=== PATIENT | male | born 1970 | race Caucasian/White ===

== ENCOUNTER 2017-09-09 11:21 | Inpatient (IN) | payer OTHER ==
[~2017-09-09] VITALS: Ht 185.4 cm; Wt 117.1 kg
--- NOTE | 2017-09-09 11:45 | ED GENERAL ADULT ---
History of Present Illness General Chief Complaint: General Adult Stated Complaint: FALL X 1 WEEK ABD PAIN AND SWELLING Source: patient Exam Limitations: no limitations Vital Signs & Intake/Output Vital Signs & Intake/Output Vital Signs Date Time Temp Pulse Resp B/P B/P Pulse O2 O2 Flow FiO2 Mean Ox Delivery Rate 09/09 1417 97.7 109 20 150/110 98 Room Air Room Air 09/09 1259 120 168/110 95 09/09 1220 120 180/112 09/09 1206 122 22 162/112 09/09 1152 Nasal 2.0L Cannula 09/09 1148 98.3 190 18 179/120 09/09 1145 190 22 140/110 09/09 1144 98.6 147 23 135/85 100 Room Air Allergies Coded Allergies: diazepam (UNKNOWN 09/09/17) Reconcile Medications No Known Home Medications Triage Note: pt marquita triage after falling off 6' ladder onto bench hitting his abd 1 week ago. pt states since then his abd has been distended, firm with scrotal swelling also. pt states his legs also have been swelling. pt eyes are icterus. pt jugular is distended. pt has a hx of untreated htn and heavy drinking of etoh. pt states he feels like his abd and chest are filling with fluid. Triage Nurses Notes Reviewed? yes Onset: Abrupt Duration: week(s): (2), constant, continues in ED Timing: recent history Injury Environment: home Severity: mild, moderate Severity Numbers: 6 No Modifying Factors: none HPI: 47-year-old male history of alcohol dependence, cirrhosis resents for evaluation of shortness of breath abdominal scrotal and lower extremity swelling and a fall. Patient reports 2 weeks ago he fell about 1 foot off of a ladder landed on his abdomen and his chest. There was no head strike or loss of consciousness. He reports that about 1 week later he noted that his abdomen was starting to swell and become painful. He also reports he feels like his heart is racing but this is not new it's been going on "forever". He denies any chest pain headache changes in vision vomiting. He has not drank for 1 month he denies any history of withdrawal seizures. He denies any easy bruising or bleeding. He reports shortness of breath he feels like his diaphragm is being pushed up. Is worse when he lays back it is worse when he exerts himself. No recent surgery. (Lazarus Fuentes) Past History Medical History Any Pertinent Medical History? see below for history Influenza Vaccine: 11/27/11 Surgical History Surgical History: non-contributory Psychosocial History Who do you live with Spouse What is your primary language Indian Family History Hx Contributory? No (Lazarus Fuentes) Review of Systems Review of Systems Constitutional: Reports: no symptoms. EENTM: Reports: no symptoms. Respiratory: Reports: see HPI, short of breath. Cardiovascular: Reports: no symptoms. GI: Reports: see HPI, abdominal pain. Genitourinary: Reports: no symptoms. Musculoskeletal: Reports: no symptoms. Skin: Reports: no symptoms. Neurological/Psychological: Reports: no symptoms. Hematologic/Endocrine: Reports: no symptoms. Immunologic/Allergic: Reports: no symptoms. All Other Systems: Reviewed and Negative (Lazarus Fuentes) Physical Exam Physical Exam General Appearance: well developed/nourished, no apparent distress, alert, awake , obese Head: atraumatic, normal appearance Eyes: Bilateral: PERRL, EOMI, other (SCLERAL ICTERUS). Ears, Nose, Throat: hearing grossly normal Neck: normal inspection, supple, full range of motion, JVD Respiratory: normal breath sounds, chest non-tender, no respiratory distress, quiet respiration, decreased breath sounds Cardiovascular: regular rate/rhythm, edema, normal peripheral pulses, tachycardia, irregularly irregular Peripheral Pulses: 2+ radial (R), 2+ radial (L) Gastrointestinal: normal bowel sounds, no organomegaly, distention, UPPER ABDOMINAL TENDERNESS AND ABDOMINAL DISTENTION. nO REBOUND OR GUARDING NO TENSE SKIN Back: normal inspection, normal range of motion, no vertebral tenderness Extremities: normal capillary refill, normal range of motion, pedal edema, swelling Neurologic/Psych: no motor/sensory deficits, awake, alert, oriented x 3, normal gait, normal mood/affect Skin: intact, normal color, warm/dry Comments: There is scrotal and penile swelling without erythema Core Measures ACS in differential dx? No CVA/TIA Diagnosis: No Sepsis Present: No Sepsis Focused Exam Completed? No (Lazarus Fuentes) Progress Differential Diagnoses I considered the following diagnoses in my evaluation of the patient: [Rapid A. fib, CHF, cirrhosis, acute coronary syndrome, trauma, intra-abdominal bleeding, ascites, malignancy] Plan of Care: Orders Procedure Date/time Status Heart Healthy Diet 09/09 D Active Patient Data 09/09 1444 Active ED Holding Orders 09/09 1441 Active Admit to inpatient 09/09 1441 Active Vital Signs 09/09 1441 Active Code Status 09/09 1441 Active Add-on Test (ER Only) 09/09 1236 Active Intake & Output 09/09 1149 Active URINE DRUG SCREEN FOR ER ONLY 09/09 1139 Complete DIRECT BILIRUBIN 09/09 1135 Complete B-TYPE NATRIURETIC PEP (BNP) 09/09 1135 Complete TYPE & SCREEN (NOT X-MATCH) 09/09 1135 Complete Add-on Test (ER Only) 09/09 1132 Active Add-on Test (ER Only) 09/09 1131 Active EKG 09/09 1131 Active URINALYSIS 09/09 1125 Complete TROPONIN LEVEL 09/09 1125 Complete PARTIAL THROMBOPLASTIN TIME 09/09 1125 Complete PROTHROMBIN TIME 09/09 1125 Complete MAGNESIUM 09/09 1125 Complete ETHANOL 09/09 1125 Complete COMPREHENSIVE METABOLIC PANEL 09/09 1125 Complete CBC WITHOUT DIFFERENTIAL 09/09 1125 Complete Current Medications Sig/Tomi Start time Last Medication Dose Stop Time Status Admin Heparin Sodium 25,000 UNIT Q24H 09/09 1430 AC (Porcine) 09/10 1429 (Heparin) Sodium Chloride 500 ML Diltiazem HCl 125 MG Q16H 09/09 1300 AC 09/09 (Cardizem DRIP) 1339 Sodium Chloride 100 ML (Normal Saline 0.9%) Laboratory Tests 09/09/17 1135: Serum Alcohol < 10.0 09/09/17 1135: Anion Gap 10, Estimated GFR > 60, BUN/Creatinine Ratio 16.7, Glucose 107 H, Calcium 9.4, Magnesium 1.7, Total Bilirubin 2.2 H, Direct Bilirubin 0.7 H, AST 56, ALT 48, Alkaline Phosphatase 94, Troponin I 0.07, Ygf-Z-Fxvjdbngsau Pept 1780 H, Total Protein 8.1, Albumin 4.1, Globulin 4.0, Albumin/Globulin Ratio 1.0 L, PT 17.6 H, INR 1.61 H, APTT 29, CBC w Diff NO MAN DIFF REQ, RBC 4.75, MCV 95.7 H, MCH 32.4 H, MCHC 33.9, RDW 14.3, MPV 9.0, Gran % 71.3, Lymphocytes % 19.0 L, Monocytes % 8.6, Eosinophils % 0.9, Basophils % 0.2, Absolute Granulocytes 7.1 H, Absolute Lymphocytes 1.9, Absolute Monocytes 0.9 H, Absolute Eosinophils 0.1, Absolute Basophils 0, Urine Opiates Screen < 100, Methadone Screen < 40, Barbiturate Screen < 60, Ur Phencyclidine Scrn < 6.00, Amphetamines Screen < 100, U Benzodiazepines Scrn < 85, Urine Cocaine Screen < 50, Urine Cannabis Screen < 5.00, Urine Color YEL, Urine Clarity CLEAR, Urine pH 6.0, Ur Specific [place] 1.015, Urine Protein 30 H, Urine Ketones NEG, Urine Nitrite NEG, Urine Bilirubin NEG, Urine Urobilinogen 0.2, Ur Leukocyte Esterase NEG, Ur Microscopic SEDIMENT EXAMINED, Urine WBC 3-5 H, Ur Epithelial Cells FEW , Hyaline Casts 1-3 H, Urine Hemoglobin NEG, Urine Glucose NEG Patient is here for evaluation of multiple complaints including a fall 2 weeks ago shortness of breath and abdominal pain. He denies any head strike headaches changes in vision or vomiting. EKG reveals rapid A. fib rates 170s. CT scan of the head and cervical spine CT of the chest CT of the abdomen and pelvis contrast ordered. Patient was given Cardizem first 10 and 15 and started drip at 7.5 with mild improvement TO the [address] scans real evidence of cirrhosis without evidence of trauma. Patient will also be heparinized. His BNP is elevated. He was given 40 of IV Lasix and a gram of Nitropaste. Patient will be admitted to telemetry for further evaluation and treatment. Dr. Martinez admitted the patient and Dr. Martinez spoke to Dr. Ge. Diagnostic Imaging: Viewed by Me: CT Scan. Discussed w/RAD: CT Scan. Radiology Impression: PATIENT: SHILOH WHALEN PRESENT AGE: 47 PATIENT ACCOUNT NO: [id number] : 68 LOCATION: [facility] ORDERING PHYSICIAN: Lazarus DORAN SERVICE DATE: 09/09/17 EXAM TYPE: CAT - CT CERV SPINE WO IV CONTRAST; CT HEAD WO IV CONTRAST EXAMINATION: CT HEAD WITHOUT CONTRAST CT OF THE CERVICAL SPINE WITHOUT CONTRAST CLINICAL INFORMATION: 47-year -old male with history of fall 2 weeks ago, unknown head strike. COMPARISON: None. TECHNIQUE: Noncontrast CT scan of the head and cervical spine, using standard protocol. Multiplanar reconstructed images are obtained. Multiplanar reconstructed images are also obtained. FINDINGS: CT OF THE HEAD: Technically limited study due to motion related artifacts. Grossly, there is no evidence of any intracranial hemorrhage or acute infarction, intracranial mass or mass effect or extra-axial fluid collection present. 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 Both orbital globes, extraocular muscles, optic nerves appear bilaterally symmetric and are unremarkable. The bilateral mastoid air cells appear unremarkable. CT OF THE CERVICAL SPINE: Technically limited study due to motion related artifacts. Nonspecific straightening of the cervical spine is noted. Facet degenerative arthritic changes are noted at C3-C4 on the right. Facet degenerative arthritic changes are also noted to the left at C2-C3. Specifically, no evidence of any cervical spine fracture or subluxation present. No prespinal soft tissue hematoma seen. Both lung apices are grossly clear. IMPRESSION: 1. Technically limited study. Repeat evaluation when patient is able to hold still for better quality of images may be considered if clinically appropriate. 2. No gross CT evidence of acute intracranial hemorrhage or cervical spine fracture present. DICTATED BY: Rah Ratliff MD DATE/TIME DICTATED:09/09/171307 PRECISION LENS GENERATOR:DANIEL DATE/TIME TRANSCRIBED:1307 CONFIDENTIAL, DO NOT COPY WITHOUT APPROPRIATE AUTHORIZATION. < Electronically signed in Other Vendor System> , PATIENT: SHILOH WHALEN PRESENT AGE: 47 PATIENT ACCOUNT NO: [id number] : LOCATION: [facility] ORDERING PHYSICIAN: Lazarus DORAN SERVICE DATE: EXAM TYPE: CAT - CT ABD & PELVIS W IV CONTRAST; CTA CHEST-PULMONARY EMBOLISM EXAMINATION: CT ANGIOGRAM CHEST WITHOUT AND WITH CONTRAST (CT PULMONARY ANGIOGRAM FOR PE) CT ABDOMEN AND PELVIS WITH CONTRAST CLINICAL INFORMATION: Fell off ladder onto right abdomen with pain, swelling and right upper quadrant pain. Shortness of breath, rapid atrial fibrillation. COMPARISON: Renal Doppler ultrasound 12/15/2011. TECHNIQUE: Prior to contrast administration, noncontrast localization images were obtained. Subsequently, multidetector volumetric imaging was performed from the thoracic inlet to below the diaphragms following the administration of 95 mL Optiray 320 intravenous contrast. No contrast reaction reported Sagittal, coronal, and MIP oblique sagittal reformatted images were obtained on the CT workstation, uploaded to PACS, and reviewed. TOTAL DLP: 2450.77 mGy-cm FINDINGS: CHEST: QUALITY OF STUDY/CONTRAST BOLUS: Satisfactory. PULMONARY ARTERIES: No central or segmental pulmonary emboli. THORACIC AORTA: No aneurysm or dissection. LUNG: Linear consolidations at the bases consistent with subsegmental atelectasis. The lungs are otherwise clear. Right hemidiaphragm elevation results in compressive atelectasis at the right lung base and low right lung volume. PLEURA: No pleural effusion or pneumothorax. MEDIASTINUM: Cardiomegaly. No pericardial effusion. Multiple scattered subcentimeter lymph nodes within the mediastinum. No adenopathy within the mediastinum or hilar regions by CT criteria. Prominent fluid within the perivascular spaces. Trachea is midline and central airways are patent. Limited views of the thyroid gland are unremarkable. No evidence of septal bowing or right heart strain. CHEST WALL /AXILLA: No axillary or internal mammary lymphadenopathy. OSSEOUS STRUCTURES: No acute or suspicious osseous abnormality. ABDOMEN AND PELVIS: LIVER, GALLBLADDER, AND BILIARY TREE: There is relative hypertrophy of the left hepatic lobe. No focal liver lesions or intrahepatic biliary dilatation. The gallbladder is unremarkable with no evidence of radiopaque gallstones, gallbladder wall thickening, or obvious pericholecystic inflammatory changes. There is small ascites seen collecting mostly around the liver and spleen but also drains dependently into the pelvis. PANCREAS: Unremarkable. SPLEEN: Unremarkable. ADRENAL GLANDS: Unremarkable. KIDNEYS AND URETERS: The kidneys are normal in size, shape, and attenuation. No hydronephrosis, hydroureter, or calculi seen. No perinephric stranding. BLADDER: Unremarkable. GASTROINTESTINAL TRACT: The appendix is not seen; however, there are no inflammatory changes in the right lower quadrant to suggest acute appendicitis. No evidence of bowel obstruction. The small and large bowel are overall unremarkable in appearance although mostly decompressed which limits evaluation. No evidence of bowel obstruction. ABDOMINAL WALL: No significant hernia is appreciated. LYMPH NODES: Abnormally enlarged lymph nodes are seen in the upper abdomen and retroperitoneum, for example there is a portacaval lymph node measuring 1.3 x 1.8 cm. Retroperitoneal adenopathy with the left para-aortic lymph node measuring 1.5 x 1.9 cm. The lymph nodes are scattered without bulkiness. VASCULAR: No abdominal aortic aneurysm. PELVIC VISCERA: Unremarkable. OSSEOUS STRUCTURES: Unremarkable. IMPRESSION: 1. No evidence of central or segmental pulmonary emboli. 2. Cardiomegaly. 3. Moderate right hemidiaphragm elevation. There is bibasilar atelectasis, greater on the right likely due to compression. No consolidations are seen that raise suspicion for pneumonia. 4. Relative hypertrophy of the left hepatic lobe. Small abdominal ascites mostly centered around the liver and spleen. The constellation of these findings is suggestive of underlying liver cirrhosis. Clinical correlation requested. 5. Lymphadenopathy within the abdomen , etiology unknown. VTE: Negative DICTATED BY: Shreya Valdes MD DATE/TIME DICTATED:09/09/171310 PRECISION LENS GENERATOR:DANIEL DATE/TIME TRANSCRIBED:1310 CONFIDENTIAL, DO NOT COPY WITHOUT APPROPRIATE AUTHORIZATION. < Electronically signed in Other Vendor System> SIGNED BY: Shreya Valdes MD 1345 CXR Impression: PATIENT: SHILOH WHALEN PRESENT AGE: 47 PATIENT ACCOUNT NO: [id number] : 66 LOCATION: [facility] ORDERING PHYSICIAN: Lazarus DORAN SERVICE DATE: 09/09/17 EXAM TYPE: RAD - XRY-PORTABLE CHEST XRAY EXAMINATION: XR PORTABLE CHEST CLINICAL INFORMATION: Shortness of breath. Abdominal swelling. COMPARISON: None TECHNIQUE: Portable frontal view of the chest was obtained. FINDINGS: The cardiac silhouette appears enlarged. The left hemithorax appears well aerated. A small to moderate-sized right-sided pleural effusion is suspected. No gross lobar consolidation. IMPRESSION: Suspected small to moderate right-sided pleural effusion. DICTATED BY: Adama Gonsalez MD DATE/TIME DICTATED:09/09/171211 PRECISION LENS GENERATOR:DANIEL DATE/TIME TRANSCRIBED:09/09/171211 CONFIDENTIAL, DO NOT COPY WITHOUT APPROPRIATE AUTHORIZATION. <Electronically signed in Other Vendor System> SIGNED BY: Adama Gonsalez MD 09/09/171217 Initial ED EKG: AFIB (WITH RVR RATE 150S-160S) (Lazarus Fuentes) Departure Departure Disposition: STILL A PATIENT Condition: Stable Clinical Impression Primary Impression: New onset a-fib Referrals: Patient Has No Primary Care Dr (PCP/Family) Departure Forms: Customer Survey General Discharge Information Prescriptions: Current Visit Scripts No Known Home Medications Admission Note Spoke With: Juliet GONZALEZ,Nicolas Documentation of Exam: Documentation of any treatments & extenuating circumstances including Concerns Regarding Discharge (functional status, medication knowledge or non-compliance, living conditions, etc.) that warrant an admission rather than observation: [ Cardizem drip, serial labs, serial EKGs, echocardiogram, IV heparin, IV diuresis , gastroenterology consult, ultrasound liver] (Lazarus Fuentes) Admission Note Documentation of Exam: Documentation of any treatments & extenuating circumstances including Concerns Regarding Discharge (functional status, medication knowledge or non-compliance, living conditions, etc.) that warrant an admission rather than observation: PA/SUPERINTENDENT CONSTRUCTION Co-Sign Statement Statement: ED Attending supervision documentation- [X] I saw and evaluated the patient. I have also reviewed all the pertinent lab results and diagnostic results. I agree with the findings and the plan of care as documented in the PA's/SUPERINTENDENT CONSTRUCTION's documentation. [] I have reviewed the ED Record and agree with the PA's/SUPERINTENDENT CONSTRUCTION's documentation. [] Additions or exceptions (if any) to the PAs/SUPERINTENDENT CONSTRUCTION's note and plan are summarized below: [] I have seen and personally examined the patient and I agree with the PAs evaluation. He is a 47-year-old male who came in with abdominal distention, leg swelling and difficulty breathing. He had a recent fall. CT scan of the abdomen and pelvis was negative for acute injury. He was found to be in rapid A. fib with aberrant ventricular rate of 160. He was given IV Cardizem for rate control. He was found to be in congestive heart failure. I discussed the case with Dr. Ge. The patient is being admitted to telemetry for further care (Roger Martinez DO) Critical Care Note Critical Care Note Critical Care Time: 75-104 min (Lazarus Fuentes)
[2017-09-09 11:50] LABS: ABSOLUTE BASOPHIL COUNT 0 /CUMM (0.0-0.2); ABSOLUTE EOSINOPHIL COUNT 0.1 /CUMM (0.0-0.7); ABSOLUTE GRANULOCYTE CT 7.1 /CUMM (1.4-6.5); ABSOLUTE LYMPH COUNT 1.9 /CUMM (1.2-3.4); ABSOLUTE MONOCYTE COUNT 0.9 /CUMM (0.10-0.60); BASOPHIL % 0.2 % (0.0-2.0); EOSINOPHIL % 0.9 % (0-5); GRANULOCYTE % 71.3 % (42.2-75.2); HEMATOCRIT 45.4 % (42-52); MEAN CORPUSCULAR HGB 32.4 PG (27.0-31.0); MEAN CORPUSCULAR HGB CONC 33.9 G/DL (33.0-37.0); MEAN CORPUSCULAR VOLUME 95.7 FL (80.0-94.0); PLATELET COUNT 273 /CUMM (130-400); RBC DISTRIBUTION WIDTH 14.3 % (11.5-14.5); RED BLOOD CELL CT 4.75 /CUMM (4.70-6.10)
[2017-09-09 12:01] LABS: PT 17.6 SEC (9.4-12.5); PTT 29 SEC (25-37)
--- NOTE | 2017-09-09 12:18 | RADIOLOGY REPORT ---
EXAMINATION: XR PORTABLE CHEST CLINICAL INFORMATION: Shortness of breath. Abdominal swelling. COMPARISON: None TECHNIQUE: Portable frontal view of the chest was obtained. FINDINGS: The cardiac silhouette appears enlarged. The left hemithorax appears well aerated. A small to moderate-sized right-sided pleural effusion is suspected. No gross lobar consolidation. IMPRESSION: Suspected small to moderate right-sided pleural effusion.
--- NOTE | 2017-09-09 13:45 | CT SCAN REPORT ---
EXAMINATION: CT ANGIOGRAM CHEST WITHOUT AND WITH CONTRAST (CT PULMONARY ANGIOGRAM FOR PE) CT ABDOMEN AND PELVIS WITH CONTRAST CLINICAL INFORMATION: Fell off ladder onto right abdomen with pain, swelling and right upper quadrant pain. Shortness of breath, rapid atrial fibrillation. COMPARISON: Renal Doppler ultrasound 12/15/2011. TECHNIQUE: Prior to contrast administration, noncontrast localization images were obtained. Subsequently, multidetector volumetric imaging was performed from the thoracic inlet to below the diaphragms following the administration of 95 mL Optiray 320 intravenous contrast. No contrast reaction reported Sagittal, coronal, and MIP oblique sagittal reformatted images were obtained on the CT workstation, uploaded to PACS, and reviewed. TOTAL DLP: 2450.77 mGy-cm FINDINGS: CHEST: QUALITY OF STUDY/CONTRAST BOLUS: Satisfactory. PULMONARY ARTERIES: No central or segmental pulmonary emboli. THORACIC AORTA: No aneurysm or dissection. LUNG: Linear consolidations at the bases consistent with subsegmental atelectasis. The lungs are otherwise clear. Right hemidiaphragm elevation results in compressive atelectasis at the right lung base and low right lung volume. PLEURA: No pleural effusion or pneumothorax. MEDIASTINUM: Cardiomegaly. No pericardial effusion. Multiple scattered subcentimeter lymph nodes within the mediastinum. No adenopathy within the mediastinum or hilar regions by CT criteria. Prominent fluid within the perivascular spaces. Trachea is midline and central airways are patent. Limited views of the thyroid gland are unremarkable. No evidence of septal bowing or right heart strain. CHEST WALL/AXILLA: No axillary or internal mammary lymphadenopathy. OSSEOUS STRUCTURES: No acute or suspicious osseous abnormality. ABDOMEN AND PELVIS: LIVER, GALLBLADDER, AND BILIARY TREE: There is relative hypertrophy of the left hepatic lobe. No focal liver lesions or intrahepatic biliary dilatation. The gallbladder is unremarkable with no evidence of radiopaque gallstones, gallbladder wall thickening, or obvious pericholecystic inflammatory changes. There is small ascites seen collecting mostly around the liver and spleen but also drains dependently into the pelvis. PANCREAS: Unremarkable. SPLEEN: Unremarkable. ADRENAL GLANDS: Unremarkable. KIDNEYS AND URETERS: The kidneys are normal in size, shape, and attenuation. No hydronephrosis, hydroureter, or calculi seen. No perinephric stranding. BLADDER: Unremarkable. GASTROINTESTINAL TRACT: The appendix is not seen; however, there are no inflammatory changes in the right lower quadrant to suggest acute appendicitis. No evidence of bowel obstruction. The small and large bowel are overall unremarkable in appearance although mostly decompressed which limits evaluation. No evidence of bowel obstruction. ABDOMINAL WALL: No significant hernia is appreciated. LYMPH NODES: Abnormally enlarged lymph nodes are seen in the upper abdomen and retroperitoneum, for example there is a portacaval lymph node measuring 1.3 x 1.8 cm. Retroperitoneal adenopathy with the left para-aortic lymph node measuring 1.5 x 1.9 cm. The lymph nodes are scattered without bulkiness. VASCULAR: No abdominal aortic aneurysm. PELVIC VISCERA: Unremarkable. OSSEOUS STRUCTURES: Unremarkable. IMPRESSION: 1. No evidence of central or segmental pulmonary emboli. 2. Cardiomegaly. 3. Moderate right hemidiaphragm elevation. There is bibasilar atelectasis, greater on the right likely due to compression. No consolidations are seen that raise suspicion for pneumonia. 4. Relative hypertrophy of the left hepatic lobe. Small abdominal ascites mostly centered around the liver and spleen. The constellation of these findings is suggestive of underlying liver cirrhosis. Clinical correlation requested. 5. Lymphadenopathy within the abdomen, etiology unknown. VTE: Negative
--- NOTE | 2017-09-09 13:46 | CT SCAN REPORT ---
EXAMINATION: CT HEAD WITHOUT CONTRAST CT OF THE CERVICAL SPINE WITHOUT CONTRAST CLINICAL INFORMATION: 47-year-old male with history of fall 2 weeks ago, unknown head strike. COMPARISON: None. TECHNIQUE: Noncontrast CT scan of the head and cervical spine, using standard protocol. Multiplanar reconstructed images are obtained. Multiplanar reconstructed images are also obtained. FINDINGS: CT OF THE HEAD: Technically limited study due to motion related artifacts. Grossly, there is no evidence of any intracranial hemorrhage or acute infarction, intracranial mass or mass effect or extra-axial fluid collection present. 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 Both orbital globes, extraocular muscles, optic nerves appear bilaterally symmetric and are unremarkable. The bilateral mastoid air cells appear unremarkable. CT OF THE CERVICAL SPINE: Technically limited study due to motion related artifacts. Nonspecific straightening of the cervical spine is noted. Facet degenerative arthritic changes are noted at C3-C4 on the right. Facet degenerative arthritic changes are also noted to the left at C2-C3. Specifically, no evidence of any cervical spine fracture or subluxation present. No prespinal soft tissue hematoma seen. Both lung apices are grossly clear. IMPRESSION: 1. Technically limited study. Repeat evaluation when patient is able to hold still for better quality of images may be considered if clinically appropriate. 2. No gross CT evidence of acute intracranial hemorrhage or cervical spine fracture present.
--- NOTE | 2017-09-09 14:47 | History & Physical ---
Ashish Mcginnis 09/09/17 1447: General Information and HPI MD Statement: I have seen and personally examined SHILOH MCRAE and documented this H&P. The patient is a 47 year old M who presented with a patient stated chief complaint of [abdominal swelling]. Source of Information: patient Exam Limitations: no limitations History of Present Illness: Mr. Mcrae is a 47-year-old male past medical history of hypertension, former heavy alcohol abuse and poor medical follow-up presenting to the emergency department with abdominal and scrotal swelling of 5 days duration with dyspnea, and progressive lower extremity swelling for 2 weeks, found to be in atrial fibrillation with RVR. The patient first noticed something was wrong on Tuesday night when he had difficulty sleeping, with pain and problems breathing in bed. When he awoke, he realized his abdomen was grossly distended as was his scrotum. For approximately a week prior to this, he had noticed his feet and ankles were becoming more and more swollen. The patient has some pain and tenderness at the midline of the lower abdomen, and he reports that he "felt fluid coming in" to his abdomen when all this started. Patient denies chest pain, but reports that he does have shortness of breath, finding it difficult to take full inspiration with his swollen abdomen. He also reports becoming dizzy/lightheaded when he tries to recline fully. Patient denies vomiting, but does report a history of nausea over this timeframe. Patient is a former alcoholic, drinking heavily for approximately 20 years with one hospitalization for alcohol withdrawal (no seizures or intubation), before cutting back 2.5 years ago, and only drinking wine rarely at present. Patient has never smoked cigarettes, denies illicit drug use. Is sexually active, but not in the past 2 years and no new partners recently. Patient has never used IV drugs. It has been over 10 years since the patient has seen a doctor, and he reports a history of very elevated blood pressure. He says that he has not been able to tolerate the side-effects of bp meds in the past. Otherwise, he takes no medicines regularly, either prescription or OTC. Allergies/Medications Allergies: Coded Allergies: diazepam (UNKNOWN 09/09/17) Home Med list No Known Home Medications Compliance With Home Meds: POOR Past History Travel History Traveled to [place] past 21 day No Medical History Cardiovascular: hypertension Surgical History Surgical History: appendectomy Past Family/Social History Psychosocial History Where do you live? Home Who Do You Live With? self Primary Language: Burundian Smoking Status: Never Smoked ETOH Use: Former heavy EtOH use Illicit Drug Use: denies illicit drug use Review of Systems Review of Systems Constitutional: Denies: fever. Exam & Diagnostic Data Last 24 Hrs of Vital Signs/I&O Vital Signs Date Time Temp Pulse Resp B/P B/P Pulse O2 O2 Flow FiO2 Mean Ox Delivery Rate 09/09 1730 98.2 116 17 172/90 97 09/09 1645 123 20 138/106 96 Nasal 4.0L Cannula 09/09 1417 97.7 109 20 150/110 98 Room Air Room Air 09/09 1259 120 168/110 95 09/09 1220 120 180/112 09/09 1206 122 22 162/112 09/09 1152 Nasal 2.0L Cannula 09/09 1148 98.3 190 18 179/120 09/09 1145 190 22 140/110 09/09 1144 98.6 147 23 135/85 100 Room Air Intake & Output 09/09 1600 09/09 0800 09/09 0000 Intake Total 0 Output Total 1300 Balance -1300 Intake, Oral 0 Output, Urine 1300 Patient 133.98 kg Weight Physical Exam General Appearance Alert, Oriented X3, Cooperative, No Acute Distress HEENT Atraumatic, PERRLA, EOMI, Mucous Membr. moist/pink Neck Supple, No JVD, No thryomegaly Cardiovascular Normal S1, Normal S2, No Murmurs, Irregular rhythm Lungs Clear to Auscultation, Normal Air Movement Abdomen Normal Bowel Sounds, Distended abdomen, not fully firm, with midline tenderness in the lower quadrant Neurological Normal Gait, Normal Speech, Strength at 5/5 X4 Ext Extremities BLE are edematous, erythematous Reproductive (MALE) Swollen scrotum with palpable testes Last 24 Hrs of Labs/Naldo: Laboratory Tests 09/09/17 1632: Troponin I 0.07 09/09/17 1135: Serum Alcohol < 10.0 09/09/17 1135: Anion Gap 10, Estimated GFR > 60, BUN/Creatinine Ratio 16.7, Glucose 107 H, Calcium 9.4, Magnesium 1.7, Total Bilirubin 2.2 H, Direct Bilirubin 0.7 H, AST 56, ALT 48, Alkaline Phosphatase 94, Troponin I 0.07, Smg-S-Lyltrjkiugy Pept 1780 H, Total Protein 8.1, Albumin 4.1, Globulin 4.0, Albumin/Globulin Ratio 1.0 L, TSH 3.190, Free T4 1.48, PT 17.6 H, INR 1.61 H, APTT 29, CBC w Diff NO MAN DIFF REQ, RBC 4.75, MCV 95.7 H, MCH 32.4 H, MCHC 33.9, RDW 14.3, MPV 9.0, Gran % 71.3, Lymphocytes % 19.0 L, Monocytes % 8.6, Eosinophils % 0.9, Basophils % 0.2, Absolute Granulocytes 7.1 H, Absolute Lymphocytes 1.9, Absolute Monocytes 0.9 H, Absolute Eosinophils 0.1, Absolute Basophils 0, Urine Opiates Screen < 100, Methadone Screen < 40, Barbiturate Screen < 60, Ur Phencyclidine Scrn < 6.00, Amphetamines Screen < 100, U Benzodiazepines Scrn < 85, Urine Cocaine Screen < 50, Urine Cannabis Screen < 5.00, Urine Color YEL, Urine Clarity CLEAR, Urine pH 6.0, Ur Specific [place] 1.015, Urine Protein 30 H, Urine Ketones NEG, Urine Nitrite NEG, Urine Bilirubin NEG, Urine Urobilinogen 0.2, Ur Leukocyte Esterase NEG, Ur Microscopic SEDIMENT EXAMINED, Urine WBC 3-5 H, Ur Epithelial Cells FEW, Hyaline Casts 1-3 H, Urine Hemoglobin NEG, Urine Glucose NEG Microbiology 09/09 173 BLOOD: Blood Culture - ORD 09/09 1730 BLOOD: Blood Culture - ORD 09/09 1710 URINE ROUT: Urine Culture - ORD Assessment/Plan Assessment: 47-year-old male with history of hypertension, former heavy alcohol abuse and poor medical follow-up presented to the emergency department due to 5 days of abdominal and scrotal swelling with dyspnea, and 2 weeks of progressively worsening lower extremity edema. * Patient's blood pressure upon presentation was 135/85, but increased to 180/ 112 during the course of his ED stay. Heart rate on admission was 147, ranging to 190 per chart, in the 110s to 120s thereafter, in rapid atrial fibrillation. CT found cardiomegaly. Will evaluate ejection fraction with echocardiogram. * Patient was dyspneic upon presentation, now tolerating nasal cannula at 4 L well, with saturations in the upper 90s. ProBNP elevated at 1780. CXR showed small to moderate suspected right-sided pleural effusion. * AST in the ED was 56 and ALT 48. PT INR also elevated at 17.6 and 1.61, respectively. Total protein and albumin are within normal limits. Bilirubin elevated with direct bili bilirubin at 2.2 and indirect bilirubin at 0.7. CT abdomen pelvis found moderate right-sided hemidiaphragm elevation, as well as findings suggestive of liver cirrhosis and abdominal lymphadenopathy. Cirrhosis is likely in the setting, but will follow further hepatic workup. * On examination the testes were palpable within the moderately swollen scrotal sac, and in the setting of diffuse edema likely represents hydrocele. Problems: 1. Atrial fibrillation with RVR 2. Abdominal ascites 3. Hypertensive urgency 4. Scrotal swelling Plan: * Patient admitted to telemetry * Ultrasound abdomen * Echocardiogram * Patient on Cardizem drip in the ED, increased to 10 mL/h * Heparin drip * Serial troponins and EKGs * Thyroid panel * Ammonia level * Hgb A1c DNR/DNI Patient on heparin drip and ALPS DVT PTX Heart healthy diet CBC & BEP with liver panel for tomorrow As Ranked By This Provider Problem List: 1. New onset a-fib 2. Ascites 3. Scrotum swelling Core Measures/Misc (10/24) Acute Coronary Syndrome ACS Diagnosis: No Congestive Heart Failure Congestive Heart Failure Diagnosis No Cerebrovascular Accident CVA/TIA Diagnosis: No VTE (View Protocol) VTE Risk Factors Age>40 No Mechanical VTE Prophylaxis d/t N/A MechProphylax Ordered No VTE Pharm Prophylaxis d/t NA PharmProphylax ordered Sepsis (View protocol) Sepsis Present: No If YES complete Sepsis Event Note If YES complete Sepsis Event Note Lorna GONZALEZKristi 09/09/17 1522: Core Measures/Misc (10/24) Sepsis (View protocol) If YES complete Sepsis Event Note If YES complete Sepsis Event Note Resident Review Statement Resident Statement: examined this patient, discussed with internal security manager, agreed with internal security manager, reviewed EMR data (avail), discussed with nursing, reviewed images Other Findings: This is a 47-year-old white male with a past medical history significant for alcohol abuse and hypertension (non compliant with meds) who presented to the Emergency after a fall 1 week ago and and abdominal pain and swelling. Per the patient, he was in his usual state of health until Tuesday when he noticed sudden abdominal distention, which has gradually progressed over the night. His abdominal distention was severe to the extent that he was not able to sleep flat for the first 3 nights because of shortness of breath. His shortness of breath is gradually getting better but abdominal distention remains the same. Also reports a dry cough with shortness of breath. Also endorses scrotal, bilateral lower extremity edema starting Tuesday and lightheadedness/ dizziness when lying down flat. Denies any fever/chills. Abdominal pain, vomiting, diarrhea, constipation, chest pain, palpitations, PND. He has not taken any blood pressure medications for the past 10 years and also not seen a physician recently. He has a history of alcohol abuse in the past, quit 2.5 years ago but drank for almost 25 years. Vitals on admission were temperature 98.6, heart rate 147, respiratory rate 23, blood pressure 135/85 and O2 sats 100% on room air. He had a WBC count of 10, H&H 15.4/45.4, platelet count of 72, sodium 138, potassium 3.4, BUN/creatinine 20/1.2, total bilirubin 2.2, direct bilirubin 0.7, normal LFTs, proBNP 1780 and INR of 1.61. UA and U tox were negative. CTA chest and CT abdomen and pelvis with contrast was negative for any acute pathology except for small abdominal ascites around his liver and spleen suggestive of underlying liver cirrhosis. Chest x-ray showed small to moderate right-sided pleural effusion. CT head and neck also negative for any acute pathology. Problem list; 1. New onset atrial fibrillation with RVR 2. Hypertensive urgency 3. Decompensated Cirrhosis with abdominal ascites, , elevated bilirubin, abnormal INR and CT scan suggestive of liver cirrhosis. MELD score 16. 4. Alcohol abuse. -Admit the patient to general medicine floor -Patient was already started on IV Cardizem drip and IV heparin for new onset atrial fibrillation, will continue and tirate according to the heart rate. -Troponin and EKG 3 to rule out ACS -Echocardiogram -Check TSH and free T4 level -Cardiology consult -?? Can consider starting on PO metoprolol to help with the blood pressure and heart rate if okay with cardiology. - Can give IV labetolol or hydralazine pushes if remains hypertensive. -Order abdominal ultrasound to further assess the liver. -Patient was given 1 dose of IV Lasix 40 mg for ascites, will hold off on further diuretics and reassess in a.m. - Follow blood and urine cultures to rule out any infection. - Follow off antibiotics. DVT prophylaxis; ALPS and IV heparin Patient is full Nicolas Chung 09/09/17 1536: Core Measures/Misc (10/24) Sepsis (View protocol) If YES complete Sepsis Event Note If YES complete Sepsis Event Note Attending MD Review Statement Attending Statement Attending MD Statement: examined this patient, discuss w/resident/PA/INTERNAL MEDICINE PHYSICIAN ASSISTANT, agreed w/resident/PA/INTERNAL MEDICINE PHYSICIAN ASSISTANT, discussed with family, reviewed EMR data (avail), discussed with nursing, discussed with case mgmt, reviewed images, amended to note Attending Assessment/Plan: 47 o/m with pmh of alcohol abuse, hypertension, alcohol withdrawal comes with increased abdominal distension found to have new onset afib and hypertensive urgency. He has CT done on arrival to ER which is suggestive of cirrhosis. He appears to have fluid overload with edema of b/l lower extremity and ascites. Patient has not been drinking alcohol for 2.5 years. Labs and imaging noted. PLAN admit to telemetry Serial caridac enzymes, ECHO. New onset afib on cardizem, anticoagulation iv heparin, consult cardiology Hyperbilirubenemia: Ammonia level. Panculture rule out infection. Off abx now CIWA and ativan prn. Thimaine folic acid. hypokalemia replace potassium and recheck. GI/DVT prophyalxis full code.
[2017-09-09 17:30] VITALS: BP 172/90
[2017-09-09 18:00] VITALS: BP 140/80
[2017-09-09 21:45] VITALS: BP 150/80
--- NOTE | 2017-09-09 21:52 | Cons- Cardiology ---
General Information and HPI Consulting Request Date of Consult: 09/09/17 Requested By: Nicolas Chung MD History of Present Illness: Mr. Mcrae is a 47 year old male with history of hypertension and alcohol abuse. About a week ago this patient noted began experiencing a moderate to severe, non -radiating chest heaviness accompanied by shortness of breath and orthopnea. He has also noted abdominal, scrotal and leg swelling. The patient has rapid palpitations accompanied by lightheadedness. In the ER the patient was found to be in atrial fibrillation with rapid heart rate. Allergies/Medications Allergies: Coded Allergies: diazepam (UNKNOWN 09/09/17) Home Med List: No Known Home Medications Review of Systems Review of Systems: A review of systems is unremarkable. Past History Travel History Traveled to [place] past 21 day No Medical History Blood Transfusion Hx: No Cardiovascular: hypertension Surgical History Surgical History: appendectomy Psychosocial History Where Do You Live? Home Who Do You Live With? self Primary Language: Khmer Smoking Status: Never Smoked ETOH Use: Former heavy EtOH use Illicit Drug Use: denies illicit drug use Exam & Diagnostic Data Vital Signs and I&O Vital Signs Date Time Temp Pulse Resp B/P B/P Pulse O2 O2 Flow FiO2 Mean Ox Delivery Rate 09/09 1933 Nasal 3.0L Cannula 09/09 1800 101 140/80 09/09 1730 98.2 116 17 172/90 97 09/09 1645 123 20 138/106 96 Nasal 4.0L Cannula 09/09 1417 97.7 109 20 150/110 98 Room Air Room Air 09/09 1259 120 168/110 95 09/09 1220 120 180/112 09/09 1206 122 22 162/112 09/09 1152 Nasal 2.0L Cannula 09/09 1148 98.3 190 18 179/120 09/09 1145 190 22 140/110 09/09 1144 98.6 147 23 135/85 100 Room Air Intake & Output 09/09 1600 09/09 0800 09/09 0000 09/08 1600 09/08 0809/08 0000 Intake Total 0 Output Total 1300 Balance -1300 Intake, Oral 0 Output, Urine 1300 Patient 295 lb Weight Physical Exam: General: WD/obese male in NAD; alert and oriented x 3 HEENT: NC/AT, PERRL, EOMI Neck: no JVD, no carotid bruit Heart: irregularly irregular w/o murmur Lungs: clear bilaterally Abdomen: soft, firm, NT, fluid wave, +ve bowel sounds : scrotal swelling Extremities: 1+ edema bilaterally Assessment/Plan Assessment/Plan * This patient has abdominal ascites without any clear evidence of JVD or increased RV pressures. I suspect he has a cirrhotic liver from alcohol abuse. Obtain an echocardiogram to assess RV pressures as well as to assess for atrial enlargement and intracardiac thrombus. * Begin chronic anticoagulation for atrial fibrillation with Eliquis 5mg BID. * Begin Metoprolol 25mg BID and increase as needed for rate control. Consult Acknowledgment - Thank you for your consult request.
[2017-09-09 23:35] LABS: PTT 89 SEC (25-37)
[2017-09-10 06:56] VITALS: BP 140/80
[2017-09-10 08:00] VITALS: BP 152/80
[2017-09-10 08:04] LABS: ABSOLUTE BASOPHIL COUNT 0.1 /CUMM (0.0-0.2); ABSOLUTE EOSINOPHIL COUNT 0.2 /CUMM (0.0-0.7); ABSOLUTE GRANULOCYTE CT 5.5 /CUMM (1.4-6.5); ABSOLUTE LYMPH COUNT 1.8 /CUMM (1.2-3.4); ABSOLUTE MONOCYTE COUNT 0.8 /CUMM (0.10-0.60); BASOPHIL % 0.9 % (0.0-2.0); EOSINOPHIL % 2.1 % (0-5); GRANULOCYTE % 65.5 % (42.2-75.2); HEMATOCRIT 42.3 % (42-52); MEAN CORPUSCULAR HGB 31.9 PG (27.0-31.0); MEAN CORPUSCULAR HGB CONC 32.9 G/DL (33.0-37.0); MEAN CORPUSCULAR VOLUME 97.1 FL (80.0-94.0); MEAN PLATELET VOLUME 9.4 FL (7.4-10.4); PLATELET COUNT 259 /CUMM (130-400); RBC DISTRIBUTION WIDTH 14.7 % (11.5-14.5); RED BLOOD CELL CT 4.36 /CUMM (4.70-6.10); WHITE BLOOD CELL COUNT 8.4 /CUMM (4.8-10.8)
--- NOTE | 2017-09-10 10:15 | PN- Housestaff ---
Kelvin Alvarez 09/10/17 1014: Subjective Follow-up For: Afib with RVR, New onset ascities & scrotal swelling Tele-Events Since Last Visit: Afib 45 - 127 Subjective: Patient examined sitting in chair. No acute events overnight. Patient mentions he can't lie in bed due to his scrotal swelling but denies any pain in scrotum. He denies, fever, chills, COLLINS, CP, SOB, N/V/D, any pain in belly. He has no complaints otherwise. Review of Systems Constitutional: Reports: see HPI. Objective Last 24 Hrs of Vital Signs/I&O Vital Signs Date Time Temp Pulse Resp B/P B/P Pulse O2 O2 Flow FiO2 Mean Ox Delivery Rate 09/11 0811 150 142/80 09/11 0710 98.3 119 20 162/98 90 / 0000 124 09/10 2205 98.5 143 20 130/84 91 09/10 2055 Room Air 09/10 2000 126 09/10 1452 113 134/78 09/10 1450 98.0 96 20 160/120 94 Room Air 09/10 1000 98.0 102 16 150/82 Intake & Output 09/11 1600 09/11 0800 09/11 0000 Intake Total 480 380 Output Total 1250 1850 Balance -770 -1470 Intake, Oral 480 380 Output, Urine 1250 1850 Patient 288 lb Weight Physical Exam General Appearance: Alert, Oriented X3, Cooperative, No Acute Distress Skin Temp/Moisture Exam: Warm/Dry Sepsis Skin Exam (color): Normal for Ethnicity Current Medications: Current Medications Sig/Tomi Start time Last Medication Dose Route Stop Time Status Admin Acetaminophen 650 MG Q6P PRN 09/09 1615 AC PO Apixaban 5 MG BID 09/10 0913 AC 09/11 PO 0810 Diltiazem HCl 125 MG Q24H 09/10 1000 DC 09/10 Sodium Chloride 100 ML IV 0946 Diltiazem HCl 125 MG Q12H 09/10 0100 DC 09/10 Sodium Chloride 100 ML IV 0041 Folic Acid 1 MG DAILY 09/10 1216 AC 09/11 PO 0810 Furosemide 20 MG ONCE ONE 09/11 0145 DC 09/11 IV 09/11 0146 0050 Furosemide 40 MG .STK-MED ONE 09/10 1638 DC IV 09/10 1639 Furosemide 20 MG 7:30 AM, & 4:30 PM 09/10 1630 AC 09/11 IV 0646 Heparin Sodium 25,000 UNIT Q24H 09/09 1645 DC 09/09 (Porcine) IV 1643 Sodium Chloride 500 ML Magnesium Chloride 64 MG DAILY 09/10 1429 AC 09/11 PO 0810 Metoprolol Tartrate 50 MG BID 09/10 2100 AC 09/11 PO 0811 Metoprolol Tartrate 50 MG ONCE ONE 09/10 2100 DC 09/10 PO 09/10 2101 2031 Metoprolol Tartrate 25 MG ONCE ONE 09/10 1430 DC 09/10 PO 09/10 1431 1452 Metoprolol Tartrate 25 MG BID 09/10 0913 DC 09/10 PO 1000 Oxycodone HCl 5 MG Q6H PRN 09/09 1615 AC PO Thiamine HCl 100 MG DAILY 09/10 1215 AC 09/11 PO 0810 Last 24 Hrs of Lab/Naldo Results Last 24 Hrs of Labs/Mics: Laboratory Tests 09/11/17 0700: Anion Gap 11, Estimated GFR > 60, BUN/Creatinine Ratio 22.0 09/10/17 1115: APTT Cancelled Assessment/Plan Assessment: Assessment/Plan 47 o/m with pmh of alcohol abuse, hypertension, alcohol withdrawal comes with increased abdominal distension found to have new onset afib and hypertensive urgency. 1. Abdominal distension/edema/ascites/, Scrotal Edema, Lower extremity edema 2. Hepatic Steatosis/Cirrhosis 3. New onset afib 4. CHF PLAN Continue telemetry Serial caridac enzymes negative pending ECHO pending U/S abd check BEP daily check LFTs check Coags check UA Daily ins and outs Continue cardio recs GI/DVT prophyalxis full code. Problem List: 1. New onset a-fib 2. Ascites 3. Scrotum swelling Pain Ratin Pain Location: Scrotum Pain Goal: Remain pain free Pain Plan: Pt doesn't want pain meds Tomorrow's Labs & Rationales: Nicolas Viveros 09/10/17 1110: Attending MD Review Statement Attending Statement Attending MD Statement: examined this patient, discuss w/resident/PA/PRINCIPAL LAW CLERK, agreed w/resident/PA/PRINCIPAL LAW CLERK, discussed with family, reviewed EMR data (avail), discussed with nursing, discussed with case mgmt, reviewed images, amended to note Attending Assessment/Plan: 47 o/m with pmh of alcohol abuse, hypertension, alcohol withdrawal comes with increased abdominal distension found to have new onset afib and hypertensive urgency. ASSESSMENT 1. Cirrhosis 2. Abdominal distension/edema/ascites 3. alcohol abuse 4. New onset afib PLAN Continue telemetry Serial caridac enzymes negative, pending ECHO. iv cardizem, anticoagulation eliquis 5mg bid, f/u cardiology CIWA and ativan prn. Thimaine folic acid. hypokalemia replace potassium and recheck. GI/DVT prophyalxis full code.
--- NOTE | 2017-09-10 14:21 | ECHOCARDIOGRAM REPORT ---
SHILOH WHALEN Age: 47 : 1970 Gender: M Exam Date: 09/10/2017 08:46 Exam Location: [address] Ht (in): 73 Wt (lb): 295 BSA: 2.68 BP: 140 / 80 Ordering Physician: Kristi Rothman MD Referring Physician: Kristi Rothman MD Technologist: Renée Rivas [facility] Room Number: 180-2 Indications: Rhythm: Technical Quality: FINDINGS Left Ventricle Normal size left ventricle. Moderate concentric left ventricular hypertrophy. Borderline left ventricular systolic function. Left ventricular ejection fraction is estimated at 50%. Right Ventricle Normal right ventricular size and function. Right Atrium Mild right atrial dilatation. Left Atrium Mild left atrial dilatation. Mitral Valve Mitral valve thickened. Mild mitral regurgitation. Aortic Valve Diffuse thickening (sclerosis) of the aortic valve cusps without reduced excursion. No aortic stenosis. No aortic regurgitation. Tricuspid Valve Tricuspid valve not well visualized, grossly normal. Mild to moderate tricuspid regurgitation. No evidence of pulmonary hypertension. Pulmonic Valve Pulmonic valve not well visualized, grossly normal. Pericardium No pericardial effusion. Great Vessels Normal size aortic root. CONCLUSIONS Normal size left ventricle. Moderate concentric left ventricular hypertrophy. Borderline left ventricular systolic function. Left ventricular ejection fraction is estimated at 50%. Mild right atrial dilatation. Mild left atrial dilatation. Mild mitral regurgitation. Mild to moderate tricuspid regurgitation. Stanley Louis M.D. (Electronically Signed) Final Date: 10 September 2017 14:15 MEASUREMENTS (Male / Female) Normal Values 2D ECHO LV Diastolic Diameter PLAX 4.7 cm 4.2 - 5.9 / 3.9 - 5.3 cm LV Systolic Diameter PLAX 2.9 cm 2.1 - 4.0 cm LV Fractional Shortening PLAX 38.3 % 25 - 46 % LV Ejection Fraction 2D Teich 68.5 % IVS Diastolic Thickness 1.8 cm LVPW Diastolic Thickness 1.9 cm LV Relative Wall Thickness 0.8 LVOT Diameter 2.3 cm Aortic Root Diameter 3.4 cm LA Systolic Diameter LX 3.8 cm 3.0 - 4.0 / 2.7 - 3.8 cm LA Volume 84.0 cm 18 - 58 / 22 - 52 cm DOPPLER AV Peak Velocity 109.0 cm/s AV Peak Gradient 4.8 mmHg LVOT Peak Velocity 60.7 cm/s LVOT Peak Gradient 1.5 mmHg AV Area Cont Eq pk 2.3 cm Mitral E Point Velocity 103.0 cm/s TR Peak Velocity 295.0 cm/s TR Peak Gradient 34.8 mmHg PV Peak Velocity 81.4 cm/s PV Peak Gradient 2.7 mmHg LV E' Lateral Velocity 11.2 cm/s Mitral E to LV E' Lateral Ratio 9.2 LV E' Septal Velocity 10.1 cm/s Mitral E to LV E' Septal Ratio 10.2
--- NOTE | 2017-09-10 14:22 | ULTRASOUND REPORT ---
EXAMINATION: US ABDOMEN LIMITED CLINICAL INFORMATION: Abdominal distention. Ascites, assess for liver cirrhosis.. COMPARISON: CT abdomen and pelvis 09/09/2017 TECHNIQUE: Real-time imaging of the right upper quadrant abdominal viscera. FINDINGS: There is a small volume of ascites. PANCREAS: The pancreas is not well visualized due to overlying bowel contents. LIVER: The liver demonstrates diffusely increased, slightly heterogeneous echotexture. No focal hepatic lesions. No intrahepatic biliary ductal dilatation. GALLBLADDER: The gallbladder is partially distended, there is fluid within the wall, the wall measures 0.7 cm. The sonographic Lopez's sign is reportedly negative. COMMON BILE DUCT: Normal in caliber measuring 0.2 cm in diameter. RIGHT KIDNEY: No hydronephrosis. No renal calculi or focal parenchymal lesions. The kidney measures 14 cm in maximum dimension. IMPRESSION: Increased, heterogeneous echotexture throughout the liver raises possibility of underlying hepatic steatosis versus hepatocellular disease. No focal hepatic lesions. There is a small volume ascites throughout the abdomen. Nonspecific fluid within the thickened gallbladder wall, this may related to ascites.
--- NOTE | 2017-09-10 14:22 | PN- Cardiology ---
Subjective Subjective: Feeling better. No current chest pain. Still with significant edema. Ventricular rate remains mildly elevated on low dose of diltiazem drip. No palpitations. No lightheadedness or dizziness. Objective Vital Signs and I&Os Vital Signs Date Time Temp Pulse Resp B/P B/P Pulse O2 O2 Flow FiO2 Mean Ox Delivery Rate 09/10 1000 98.0 102 16 150/82 09/10 0800 98.0 82 16 152/80 09/10 0800 97 Nasal 3.0L Cannula 09/10 0656 97.8 88 20 140/80 96 Nasal Cannula 09/10 0400 96 09/10 0000 Nasal 3.0L Cannula 09/09 2145 97.3 96 18 150/80 96 Nasal 3.0L Cannula 09/09 1933 Nasal 3.0L Cannula 09/09 1800 101 140/80 09/09 1730 98.2 116 17 172/90 97 09/09 1645 123 20 138/106 96 Nasal 4.0L Cannula Intake & Output 09/10 1600 09/10 0800 09/10 0000 09/09 1600 09/09 0800 09/09 0000 Intake Total 370 420 0 Output Total 600 1340 1300 Balance -230 -920 -1300 Intake, IV 250 180 Intake, Oral 120 240 0 Output, Urine 600 1340 1300 Patient 293 lb 295 lb Weight Weight Bed scale Measurement Method Physical Exam: Gen: NAD HEENT: normal Lungs: clear to auscultation, normal resp. effort Heart: Irregularly irregular, S1, S2, no murmurs Abdomen: Soft, nontender, no masses Extremities: 2+ edema Neuro: Alert and oriented x 3, cranial nerves intact Current Medications: Current Medications Sig/Tomi Start time Last Medication Dose Route Stop Time Status Admin Acetaminophen 650 MG Q6P PRN 09/09 1615 AC PO Apixaban 5 MG BID 09/10 0913 AC 09/10 PO 1016 Diltiazem HCl 125 MG Q24H 09/10 1000 AC 09/10 Sodium Chloride 100 ML IV 0946 Diltiazem HCl 125 MG Q12H 09/10 0100 DC 09/10 Sodium Chloride 100 ML IV 0041 Diltiazem HCl 125 MG Q16H 09/09 1300 DC 09/09 Sodium Chloride 100 ML IV 09/10 0059 1339 Folic Acid 1 MG DAILY 09/10 1216 AC 09/10 PO 1331 Heparin Sodium 25,000 UNIT Q24H 09/09 1645 DC 09/09 (Porcine) IV 1643 Sodium Chloride 500 ML Heparin Sodium 0 .STK-MED ONE 09/09 1532 DC (Porcine) .ROUTE Heparin Sodium 4,000 UNIT ONCE ONE 09/09 1430 DC 09/09 (Porcine) IV 09/09 1431 1544 Heparin Sodium 25,000 UNIT Q24H 09/09 1430 DC 09/09 (Porcine) IV 09/10 1429 1634 Sodium Chloride 500 ML Metoprolol Tartrate 25 MG BID 09/10 0913 AC 09/10 PO 1000 Oxycodone HCl 5 MG Q6H PRN 09/09 1615 AC PO Potassium Chloride 40 MEQ ONCE ONE 09/09 1445 DC 09/09 PO 09/09 1446 1544 Thiamine HCl 100 MG DAILY 09/10 1215 AC 09/10 PO 1331 Results Last 48 Hrs of Labs/Mics: Laboratory Tests 09/10/17 0610: Anion Gap 8, Estimated GFR > 60, BUN/Creatinine Ratio 18.3, Hemoglobin A1c Pending, Total Bilirubin 1.7 H, Direct Bilirubin 0.5 H, CBC w Diff NO MAN DIFF REQ, RBC 4.36 L, MCV 97.1 H, MCH 31.9 H, MCHC 32.9 L, RDW 14.7 H, MPV 9.4, Gran % 65.5, Lymphocytes % 21.7, Monocytes % 9.8 H, Eosinophils % 2.1, Basophils % 0.9, Absolute Granulocytes 5.5, Absolute Lymphocytes 1.8, Absolute Monocytes 0.8 H, Absolute Eosinophils 0.2, Absolute Basophils 0.1 09/10/17 0400: Total Bilirubin Cancelled 09/09/17 2313: APTT 89 H 09/09/17 2250: Troponin I 0.07 09/09/17 2250: Ammonia 45 H 09/09/17 1632: Troponin I 0.07 09/09/17 1135: Serum Alcohol < 10.0 09/09/17 1135: Anion Gap 10, Estimated GFR > 60, BUN/Creatinine Ratio 16.7, Glucose 107 H, Calcium 9.4, Magnesium 1.7, Total Bilirubin 2.2 H, Direct Bilirubin 0.7 H, AST 56, ALT 48, Alkaline Phosphatase 94, Troponin I 0.07, Lvd-H-Tsuglvoffmb Pept 1780 H, Total Protein 8.1, Albumin 4.1, Globulin 4.0, Albumin/Globulin Ratio 1.0 L, TSH 3.190, Free T4 1.48, PT 17.6 H, INR 1.61 H, APTT 29, CBC w Diff NO MAN DIFF REQ, RBC 4.75, MCV 95.7 H, MCH 32.4 H, MCHC 33.9, RDW 14.3, MPV 9.0, Gran % 71.3, Lymphocytes % 19.0 L, Monocytes % 8.6, Eosinophils % 0.9, Basophils % 0.2, Absolute Granulocytes 7.1 H, Absolute Lymphocytes 1.9, Absolute Monocytes 0.9 H, Absolute Eosinophils 0.1, Absolute Basophils 0, Urine Opiates Screen < 100, Methadone Screen < 40, Barbiturate Screen < 60, Ur Phencyclidine Scrn < 6.00, Amphetamines Screen < 100, U Benzodiazepines Scrn < 85, Urine Cocaine Screen < 50, Urine Cannabis Screen < 5.00, Urine Color YEL, Urine Clarity CLEAR, Urine pH 6.0, Ur Specific [place] 1.015, Urine Protein 30 H, Urine Ketones NEG, Urine Nitrite NEG, Urine Bilirubin NEG, Urine Urobilinogen 0.2, Ur Leukocyte Esterase NEG, Ur Microscopic SEDIMENT EXAMINED, Urine WBC 3-5 H, Ur Epithelial Cells FEW, Hyaline Casts 1-3 H, Urine Hemoglobin NEG, Urine Glucose NEG Recent Imaging Studies: Echocardiogram: LVEF 50%. Moderate left ventricular hypertrophy. Mild biatrial enlargement Assessment/Plan Assessment/Plan Assessment: 1. Atrial fibrillation, rate not yet fully controlled 2. Cirrhosis 3. Acute diastolic heart failure 4. Hypertension Plan: * Increase metoprolol to 50 mg p.o. twice daily * Discontinue diltiazem after 50 mg dose of metoprolol was given * Continue Eliquis * Would diuresis with Lasix 20 mg IV every 12 hours * Monitor input and output * Check basic metabolic profile in the more Continue telemetry? Yes
[2017-09-10 14:50] VITALS: BP 160/120
--- NOTE | 2017-09-10 20:19 | Discharge Summary ---
Visit Information Visit Dates Admission Date: 09/09/17 Discharge Date: 09/13/17 Hospital Course Course Attending Physician: Nicolas Chung MD Primary Care Physician: Patient Has No Primary Care Dr Hospital Course: Mr. Mcrae is a 47-year-old male past medical history of hypertension, former heavy alcohol abuse and poor medical follow-up who presented to the emergency department with abdominal and scrotal swelling of 5 days duration with dyspnea, and progressive lower extremity swelling for 2 weeks, found to be in atrial fibrillation with RVR. The patient first noticed something was wrong 5 days prior to admission at night when he had difficulty sleeping, with pain and problems breathing in bed. When he awoke, he realized his abdomen was grossly distended as was his scrotum. For approximately a week prior to this, he had noticed his feet and ankles were becoming more and more swollen. The patient has some pain and tenderness at the midline of the lower abdomen, and he reported that he "felt fluid coming in" to his abdomen when all this started. Patient denied chest pain, but reported that he had shortness of breath, finding it difficult to take full inspiration with his swollen abdomen. He also reported becoming dizzy/lightheaded when he tries to recline fully. Patient denied vomiting, but did report a history of nausea over this timeframe. The patient was admitted to the telemetry unit, on cardizem and heparin drips, given Lasix IV for diuresis. He was transitioned to Eliquis PO in place of the heparin as well as Lasix PO and Cardizem PO. Echo showed EF of 50%, while US Abdomen suggests hepatic steatosis or hepatocellular disease, without focal liver lesions. Gradually the patient reported diminishing swelling, and objectively the peripheral edema began to improve. 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 Allergies: Coded Allergies: diazepam (PER PT [employer] [facility] 09/18/17) Pertinent Lab Results: X-Ray Abdomen No dilated loops of large or small bowel. No suspicious abdominal calcifications. No evidence of pneumoperitoneum on these supine radiographs. Mild lumbar facet arthropathy. Mild to moderate degenerative changes of the left hip. US Abdomen Increased, heterogeneous echotexture throughout the liver raises possibility of underlying hepatic steatosis versus hepatocellular disease. No focal hepatic lesions. There is a small volume ascites throughout the abdomen. Nonspecific fluid within the thickened gallbladder wall, this may related to ascites. Normal size left ventricle. Moderate concentric left ventricular hypertrophy. Borderline left ventricular systolic function. Left ventricular ejection fraction is estimated at 50%. Mild right atrial dilatation. Mild left atrial dilatation. Mild mitral regurgitation. Mild to moderate tricuspid regurgitation. CT Head and Cervical Spine 1. Technically limited study. Repeat evaluation when patient is able to hold still for better quality of images may be considered if clinically appropriate. 2. No gross CT evidence of acute intracranial hemorrhage or cervical spine fracture present. CXR: Suspected small to moderate right-sided pleural effusion. CTA Chest & CT Abd pelvis: 1. No evidence of central or segmental pulmonary emboli. 2. Cardiomegaly. 3. Moderate right hemidiaphragm elevation. There is bibasilar atelectasis, greater on the right likely due to compression. No consolidations are seen that raise suspicion for pneumonia. 4. Relative hypertrophy of the left hepatic lobe. Small abdominal ascites mostly centered around the liver and spleen. The constellation of these findings is suggestive of underlying liver cirrhosis. Clinical correlation requested. 5. Lymphadenopathy within the abdomen, etiology unknown. Disposition Summary Disposition Principal Diagnosis: Abdominal ascites Additional Diagnosis: Hepatic steatosis, diastolic heart failure Discharge Disposition: home or self care Discharge Instructions General Discharge Information Code Status: Full Code Patient's Diet: Heart healthy diet Patient's Activity: As tolerated Follow-Up Instructions/Appts: Patient given a referral with the clinic and Dr. Whitley to establish care with a PCP, also instructed to follow-up with his bailer operators supervisor as an outpatient. Medications at Discharge Discharge Medications: Start taking the following new medications: Apixaban (Eliquis) 5 MG TABLET 1 Tablet ORAL TWICE DAILY Qty = 60 No Refills Comments: Last Taken:09/13/17 Time:822 Metoprolol Tartrate (Metoprolol Tartrate) 50 MG TABLET 1 Tablet ORAL TWICE DAILY Qty = 60 No Refills Comments: Last Taken:09/13/17 Time:822 Diltiazem HCl (Cardizem) 60 MG TABLET 1 Tablet ORAL TWICE DAILY Qty = 60 No Refills Comments: Last Taken:09/13/17 Time:06 Furosemide (Lasix) 40 MG TABLET 1 Tablet ORAL DAILY Qty = 30 No Refills Comments: Last Taken:09/13/17 Time:822 Copies To: Linda GONZALEZ,Liborio Ge MD PHD,Pineda Long
[2017-09-10 22:05] VITALS: BP 130/84
--- NOTE | 2017-09-11 06:40 | PN- Housestaff ---
Sebastian Pierce 09/11/17 0639: Subjective Follow-up For: Atrial fibrillation, hypertension, alcohol abuse, A. fib with RVR Complaints: no complaints Tele-Events Since Last Visit: Tachycardia and 160s Subjective: Patient feels better denies chest pain palpitations. Lightheadedness. States edema is only problem which has been reducing Review of Systems Constitutional: Reports: see HPI. Objective Last 24 Hrs of Vital Signs/I&O Vital Signs Date Time Temp Pulse Resp B/P B/P Pulse O2 O2 Flow FiO2 Mean Ox Delivery Rate 09/11 1840 117 164/102 / 1648 126 156/88 09/11 1600 146 20 / 1428 98.3 130 24 162/108 92 Room Air 09/11 1426 139 144/98 09/11 1253 141 142/80 09/11 0918 109 134/80 09/11 0811 150 142/80 / 0800 112 20 / 0800 91 Room Air 09/11 0710 98.3 119 20 162/98 90 08/05 0000 124 / 2205 98.5 143 20 130/84 91 / 2055 Room Air 09/10 2000 126 Intake & Output 09/11 1600 08/05 0800 08/ 0000 Intake Total 1240 480 380 Output Total 500 1250 1850 Balance 740 -770 -1470 Intake, Oral 1240 480 380 Output, Urine 500 1250 1850 Patient 288 lb Weight Physical Exam General Appearance: Alert, Oriented X3, Cooperative, No Acute Distress Cardiovascular: Regular Rate, No Murmurs Lungs: Clear to Auscultation, Normal Air Movement Abdomen: Normal Bowel Sounds, Soft, No Tenderness, No Hepatospenomegaly, No Masses Neurological: Normal Speech, Strength at 5/5 X4 Ext, Normal Tone, Sensation Intact Extremities: edema Current Medications: Current Medications Sig/Tomi Start time Last Medication Dose Route Stop Time Status Admin Acetaminophen 650 MG Q6P PRN 09/09 1615 AC PO Apixaban 5 MG BID 09/10 0813 AC 09/11 PO 0810 Diltiazem HCl 125 MG Q16H 09/12 0930 AC Sodium Chloride 100 ML IV Diltiazem HCl 125 MG Q24H 09/11 1615 AC 09/11 Sodium Chloride 100 ML IV 09/12 0929 1723 Folic Acid 1 MG DAILY 09/10 1216 AC 09/11 PO 0810 Furosemide 20 MG ONCE ONE 09/11 0145 DC 09/11 IV 09/11 0146 0050 Furosemide 20 MG 7:30 AM, & 4:30 PM 09/10 1630 AC 09/11 IV 1548 Magnesium Chloride 64 MG DAILY 09/10 1429 AC 09/11 PO 0810 Metoprolol Tartrate 75 MG BID 09/11 2100 DC PO Metoprolol Tartrate 100 MG BID 09/11 2100 AC PO Metoprolol Tartrate 5 MG ONCE ONE 09/11 1430 DC 08 IV 09/11 1431 1426 Metoprolol Tartrate 25 MG ONCE ONE 09/11 1245 DC 08 PO 09/11 1246 1253 Metoprolol Tartrate 25 MG ONCE ONE 09/11 1000 DC 09/11 PO 09/11 1001 0918 Metoprolol Tartrate 50 MG BID 09/10 2100 DC 09/11 PO 0811 Metoprolol Tartrate 50 MG ONCE ONE 09/10 2100 DC 09/10 PO 09/10 2101 2031 Oxycodone HCl 5 MG Q6H PRN 09/09 1615 AC PO Potassium Chloride 40 MEQ ONCE ONE 09/11 1315 DC 08/ PO 09/11 1316 1314 Thiamine HCl 100 MG DAILY 09/10 1215 AC 09/11 PO 0810 Warfarin Sodium 7.5 MG COUMADIN 1700 ONE 09/11 1700 CAN PO 09/11 1701 Last 24 Hrs of Lab/Naldo Results Last 24 Hrs of Labs/Mics: Laboratory Tests 09/11/17 0700: Anion Gap 11, Estimated GFR > 60, BUN/Creatinine Ratio 22.0 Assessment/Plan Assessment: 47 o/m with pmh of alcohol abuse, hypertension, alcohol withdrawal comes with increased abdominal distension found to have new onset afib and hypertensive urgency with acute Heart failure with preserved EF. 1.Atrial fibrillation, rate mildly elevated 2. Cirrhosis 3. Acute HFpEF 4. Hypertension Abdominal X ray ordered PATIENT HAD hr IN 100-150 and increased metoprolol to 100mg as per Dr Louis. gave a dose of iv metoprolol n5mg at 2.35 pm to control HR. heart rate was not controlled so IV Cardizem drip was started at 5 mg/h, and escalated to 7.5 mg/h which finally brought the heart rate to 100 Continue Eliquis, Lasix IV input output monitoring Follow-up BEP, magnesium Echo-concentric LVH, ejection fraction 50% Problem List: 1. Ascites 2. New onset a-fib Pain Ratin Pain Location: None Pain Goal: Remain pain free Pain Plan: None Tomorrow's Labs & Rationales: BeP, magnesium Nicolas Chung 09/11/17 1121: Attending MD Review Statement Attending Statement Attending MD Statement: examined this patient, discuss w/resident/PA/RESTAURANT AREA DIRECTOR, agreed w/resident/PA/RESTAURANT AREA DIRECTOR, discussed with family, reviewed EMR data (avail), discussed with nursing, discussed with case mgmt, reviewed images, amended to note Attending Assessment/Plan: 47 o/m with pmh of alcohol abuse, hypertension, alcohol withdrawal comes with increased abdominal distension found to have new onset afib and hypertensive urgency with acute Heart failure with preserved EF. ASSESSMENT 1. Cirrhosis 2. Abdominal distension/edema/ascites 3. alcohol abuse 4. New onset afib 5. CHF EF 50% 6. Elevated BNP 1700 PLAN Continue telemetry Serial caridac enzymes negative, ECHO EF 50%, iv lasix. PO cardizem and metoprolol, anticoagulation eliquis 5mg bid, f/u cardiology. CIWA and ativan prn. Thimaine folic acid. hypokalemia replace potassium and recheck. GI/DVT prophyalxis full code.
[2017-09-11 07:10] VITALS: BP 162/98
--- NOTE | 2017-09-11 10:50 | PN- Cardiology ---
Subjective Subjective: Feeling better. Edema is somewhat better. No chest pain. No palpitations. No lightheadedness or dizziness. Ventricular rate remains mildly elevated. Diltiazem drip has been discontinued. Objective Vital Signs and I&Os Vital Signs Date Time Temp Pulse Resp B/P B/P Pulse O2 O2 Flow FiO2 Mean Ox Delivery Rate 09/11 917 109 134/80 09/11 0811 150 142/80 09/11 0800 112 20 09/11 0800 91 Room Air 09/11 0710 98.3 119 20 162/98 90 / 0000 124 09/10 2205 98.5 143 20 130/84 91 09/10 2055 Room Air 09/10 2000 126 09/10 1452 113 134/78 09/10 1450 98.0 96 20 160/120 94 Room Air Intake & Output 09/11 1600 09/11 0809/11 0000 09/10 1600 09/10 0800 09/10 0000 Intake Total 480 380 800 370 420 Output Total 1250 1850 670 492 3595 Balance -770 -1470 700 -230 -920 Intake, IV 250 180 Intake, Oral 480 380 800 120 240 Output, Urine 1250 1850 [phone] Patient 288 lb 297 lb 293 lb Weight Weight Bed scale Bed scale Measurement Method Physical Exam: Gen: NAD HEENT: normal Lungs: clear to auscultation, normal resp. effort Heart: Irregularly irregular, S1, S2, no murmurs Abdomen: Soft, nontender, no masses Extremities: 2+ edema Neuro: Alert and oriented x 3, cranial nerves intact Current Medications: Current Medications Sig/Tomi Start time Last Medication Dose Route Stop Time Status Admin Acetaminophen 650 MG Q6P PRN 09/09 1615 PO Apixaban 5 MG BID 09/10 0913 09/11 PO 0810 Diltiazem HCl 125 MG Q24H 09/10 1000 DC 09/10 Sodium Chloride 100 ML IV 0946 Folic Acid 1 MG DAILY 09/10 1216 AC 09/11 PO 0810 Furosemide 20 MG ONCE ONE 09/11 0145 DC 09/11 IV 09/11 0146 0050 Furosemide 40 MG .STK-MED ONE 09/10 1638 DC IV 09/10 1639 Furosemide 20 MG 7:30 AM, & 4:30 PM 09/10 1630 09/11 IV 0646 Magnesium Chloride 64 MG DAILY 09/10 1429 AC 09/11 PO 0810 Metoprolol Tartrate 75 MG BID 09/11 2099 DC PO Metoprolol Tartrate 100 MG BID 09/11 2100 UNVr PO Metoprolol Tartrate 25 MG ONCE ONE 09/11 1000 DC 09/11 PO 09/11 1001 0918 Metoprolol Tartrate 50 MG BID 09/10 2100 DC 09/11 PO 0811 Metoprolol Tartrate 50 MG ONCE ONE 09/10 2100 DC 09/10 PO 09/10 2101 2031 Metoprolol Tartrate 25 MG ONCE ONE 09/10 1430 DC 09/10 PO 09/10 1431 1452 Metoprolol Tartrate 25 MG BID 09/10 0913 DC 09/10 PO 1000 Oxycodone HCl 5 MG Q6H PRN 09/09 1615 AC PO Thiamine HCl 100 MG DAILY 09/10 1215 AC 09/11 PO 0810 Results Last 48 Hrs of Labs/Mics: Laboratory Tests 09/11/17 0700: Anion Gap 11, Estimated GFR > 60, BUN/Creatinine Ratio 22.0 09/10/17 1115: APTT Cancelled 09/10/17 0610: Anion Gap 8, Estimated GFR > 60, BUN/Creatinine Ratio 18.3, Hemoglobin A1c Pending, Total Bilirubin 1.7 H, Direct Bilirubin 0.5 H, CBC w Diff NO MAN DIFF REQ, RBC 4.36 L, MCV 97.1 H, MCH 31.9 H, MCHC 32.9 L, RDW 14.7 H, MPV 9.4, Gran % 65.5, Lymphocytes % 21.7, Monocytes % 9.8 H, Eosinophils % 2.1, Basophils % 0.9, Absolute Granulocytes 5.5, Absolute Lymphocytes 1.8, Absolute Monocytes 0.8 H, Absolute Eosinophils 0.2, Absolute Basophils 0.1 09/10/17 0400: Total Bilirubin Cancelled 09/09/17 2313: APTT 89 H 09/09/17 2250: Troponin I 0.07 09/09/17 2250: Ammonia 45 H 09/09/17 1632: Troponin I 0.07 09/09/17 1135: Serum Alcohol < 10.0 09/09/17 1135: Anion Gap 10, Estimated GFR > 60, BUN/Creatinine Ratio 16.7, Glucose 107 H, Calcium 9.4, Magnesium 1.7, Total Bilirubin 2.2 H, Direct Bilirubin 0.7 H, AST 56, ALT 48, Alkaline Phosphatase 94, Troponin I 0.07, Ijr-V-Kukissgfzjx Pept 1780 H, Total Protein 8.1, Albumin 4.1, Globulin 4.0, Albumin/Globulin Ratio 1.0 L, TSH 3.190, Free T4 1.48, PT 17.6 H, INR 1.61 H, APTT 29, CBC w Diff NO MAN DIFF REQ, RBC 4.75, MCV 95.7 H, MCH 32.4 H, MCHC 33.9, RDW 14.3, MPV 9.0, Gran % 71.3, Lymphocytes % 19.0 L, Monocytes % 8.6, Eosinophils % 0.9, Basophils % 0.2, Absolute Granulocytes 7.1 H, Absolute Lymphocytes 1.9, Absolute Monocytes 0.9 H, Absolute Eosinophils 0.1, Absolute Basophils 0, Urine Opiates Screen < 100, Methadone Screen < 40, Barbiturate Screen < 60, Ur Phencyclidine Scrn < 6.00, Amphetamines Screen < 100, U Benzodiazepines Scrn < 85, Urine Cocaine Screen < 50, Urine Cannabis Screen < 5.00, Urine Color YEL, Urine Clarity CLEAR, Urine pH 6.0, Ur Specific [place] 1.015, Urine Protein 30 H, Urine Ketones NEG, Urine Nitrite NEG, Urine Bilirubin NEG, Urine Urobilinogen 0.2, Ur Leukocyte Esterase NEG, Ur Microscopic SEDIMENT EXAMINED, Urine WBC 3-5 H, Ur Epithelial Cells FEW, Hyaline Casts 1-3 H, Urine Hemoglobin NEG, Urine Glucose NEG Assessment/Plan Assessment/Plan Assessment: 1. Atrial fibrillation, rate mildly elevated 2. Cirrhosis 3. Acute HFpEF 4. Hypertension Plan: * Increase metoprolol to 100 mg p.o. twice daily * Continue Eliquis * Continue IV Lasix * Monitor input and output * Check basic metabolic profile in the morning Continue telemetry? Yes
[2017-09-11 14:28] VITALS: BP 162/108
--- NOTE | 2017-09-11 14:58 | RADIOLOGY REPORT ---
EXAMINATION: XR ABDOMEN CLINICAL INDICATION: Abdominal distention. COMPARISON: CT abdomen pelvis 09/09/2017. TECHNIQUE: AP view of the abdomen. FINDINGS: No dilated loops of large or small bowel. No suspicious abdominal calcifications. No evidence of pneumoperitoneum on these supine radiographs. Mild lumbar facet arthropathy. Mild to moderate degenerative changes of the left hip. IMPRESSION: Nonobstructive bowel gas pattern.
[2017-09-11 16:48] VITALS: BP 156/88
[2017-09-11 18:40] VITALS: BP 164/102
[2017-09-11 20:00] VITALS: BP 144/100
[2017-09-11 22:00] VITALS: BP 148/90
[2017-09-12 06:44] VITALS: BP 128/80
[2017-09-12 08:00] VITALS: BP 124/76
--- NOTE | 2017-09-12 08:05 | PN- Housestaff ---
Ashish Mcginnis 09/12/17 0805: Subjective Follow-up For: Abdominal ascites Hepatic cirrhosis Atrial fibrillation Tele-Events Since Last Visit: A fib overnight, rates 70-94, with bradycardic episodes to rate of 38 with brief pauses up to 3.2 seconds Subjective: Patient seen seated comfortably at the bedside. Reports feels improved swelling. Also endorses cough that has been present since prior to admission. Denies chest pain, dizziness, reports orthopnea. Review of Systems Constitutional: Denies: chills, diaphoresis, fever, malaise. Objective Last 24 Hrs of Vital Signs/I&O Vital Signs Date Time Temp Pulse Resp B/P B/P Pulse O2 O2 Flow FiO2 Mean Ox Delivery Rate 09/12 06 98.3 102 20 128/80 91 Room Air 09/11 2200 Room Air 09/11 220 98.1 118 19 148/90 93 / 2128 120 144/100 / 2000 105 144/100 / 1840 117 164/102 / 1648 126 156/88 09/11 1600 146 20 09/11 1428 98.3 130 24 162/108 92 Room Air 09/11 1426 139 144/98 /05 1253 141 142/80 /05 0918 109 134/80 /05 0811 150 142/80 Intake & Output 09/12 1600 09/12 0800 09/12 0000 Intake Total 268 540 Output Total 250 Balance 18 540 Intake, IV 28 60 Intake, Oral 240 480 Number 0 Bowel Movements Output, Urine 250 Patient 117.055 kg Weight Physical Exam General Appearance: Alert, Oriented X3, Cooperative, No Acute Distress HEENT: Atraumatic, PERRLA, EOMI Cardiovascular: Normal S1, Normal S2, No Murmurs, Irregular rate Lungs: Clear to Auscultation, Normal Air Movement Abdomen: Normal Bowel Sounds, Soft, Midline tenderness, distended abdomen Current Medications: Current Medications Sig/Tomi Start time Last Medication Dose Route Stop Time Status Admin Acetaminophen 650 MG Q6P PRN 09/09 1615 AC PO Apixaban 5 MG BID 09/10 912 AC 09/11 PO 2128 Diltiazem HCl 125 MG Q16H 09/12 0930 CAN Sodium Chloride 100 ML IV Diltiazem HCl 125 MG Q24H 09/11 1615 DC 09/11 Sodium Chloride 100 ML IV 09/12 0929 1723 Folic Acid 1 MG DAILY 09/10 1216 AC 09/11 PO 0810 Furosemide 20 MG 7:30 AM, & 4:30 PM 09/10 1630 AC 09/11 IV 1548 Magnesium Chloride 64 MG DAILY 09/10 1429 AC 09/11 PO 0810 Metoprolol Tartrate 75 MG BID 09/11 2100 DC PO Metoprolol Tartrate 100 MG BID 09/11 2100 AC 09/11 PO 2128 Metoprolol Tartrate 5 MG ONCE ONE 09/11 1430 DC 08 IV 09/11 1431 1426 Metoprolol Tartrate 25 MG ONCE ONE 09/11 1245 DC 09/11 PO 09/11 1246 1253 Metoprolol Tartrate 25 MG ONCE ONE 09/11 1000 DC 09/11 PO 09/11 1001 0918 Metoprolol Tartrate 50 MG BID 09/10 2100 DC 09/11 PO 0811 Oxycodone HCl 5 MG Q6H PRN 09/09 1615 AC PO Potassium Chloride 40 MEQ ONCE ONE 09/11 1315 DC 09/11 PO 09/11 1316 1314 Thiamine HCl 100 MG DAILY 09/10 1215 AC 09/11 PO 0810 Warfarin Sodium 7.5 MG COUMADIN 1700 ONE 09/11 1700 CAN PO 09/11 1701 Last 24 Hrs of Lab/Naldo Results Last 24 Hrs of Labs/Mics: Laboratory Tests 09/12/17 0632: Sodium Pending, Potassium Pending, Chloride Pending, Carbon Dioxide Pending, Anion Gap Pending, BUN Pending, Creatinine Pending, BUN/Creatinine Ratio Pending , Magnesium Pending Assessment/Plan Assessment: 47 o/m with pmh of alcohol abuse, hypertension, alcohol withdrawal comes with increased abdominal distension found to have new onset afib and hypertensive urgency. Echo showed EF of 50%. US Abdomen suggests hepatic steatosis or hepatocellular disease, without focal liver lesions. Patient reports diminished swelling, objectively peripheral edema is improved. 1. Abdominal distension/edema/ascites/, Scrotal Edema, Lower extremity edema 2. Hepatic Steatosis/Cirrhosis 3. New onset afib 4. HTN 5. CHF unlikely; edema likely secondary to hepatic failure/cirrhosis PLAN: * Switching Lasix to 40 mg PO daily * Cardizem drip dc'd, monitor for tachycardia; f/u cardio recs RE: additional rate control * Continue Eliquis * Continu Metoprolol GI/DVT prophyalxis full code. Problem List: 1. New onset a-fib 2. Ascites 3. Scrotum swelling Pain Ratin Pain Location: none Pain Goal: Pain 4 or less Pain Plan: per pathway Tomorrow's Labs & Rationales: bep mag Joseph GONZALEZ,Prasanna 09/12/17 1128: Attending MD Review Statement Attending Statement Attending MD Statement: examined this patient, discuss w/resident/PA/APARTMENT MAINTENANCE SUPERVISOR, agreed w/resident/PA/APARTMENT MAINTENANCE SUPERVISOR, reviewed EMR data (avail), discussed with nursing, discussed with case mgmt, amended to note Attending Assessment/Plan: Patient seen and examined. Sitting up comfortably not in any acute distress. Reports feeling better compared to presentation. Denies shortness of breath at rest. Still admits to some shortness of breath with exertion. Denies cough. Denies chest pain. On telemetry monitoring was noted to have some sinus bradycardia and pauses. Cardizem infusion has been discontinued. Currently on oral metoprolol. Still in atrial fibrillation with occasional rapid ventricular response. On examination he is not in any respiratory distress. No jugular venous distention. Heart sounds are regular. Lungs are clear to auscultation bilaterally. Abdomen soft and nontender. He has 1+ bilateral pedal edema. Echocardiogram shows EF of 50%. LVH. Mild mitral regurgitation. Mild to moderate tricuspid regurgitation. Plan: -Continue rate control with metoprolol. Follow-up with the cardiology service regarding further recurrent recommendations. Continue anticoagulant therapy with Eliquis. -He appears to have dropped 3 EKG compared to presentation. He has been maintaining negative fluid balance however yesterday fluid balance was positive. Recommend given an additional dose of Lasix 20 mg IV later on today. Tomorrow he may be transitioned to Lasix 40 mg orally daily. Recommend compression stockings and leg elevation to help reduce his peripheral edema. Anticipate discharge next 24-48 hours if better rate control is achieved.
[2017-09-12 15:03] VITALS: BP 140/110
[2017-09-12 16:00] VITALS: BP 160/110
--- NOTE | 2017-09-12 19:45 | PN- Cardiology ---
Subjective Subjective: * No complaints. * mildly decreased swelling * low normal Ef on echo * atrial fibrillation with increased heart rate Objective Vital Signs and I&Os Vital Signs Date Time Temp Pulse Resp B/P B/P Pulse O2 O2 Flow FiO2 Mean Ox Delivery Rate 09/12 1813 147 168/112 / 1600 98.6 130 20 160/110 / 1503 98.7 118 20 140/110 92 Room Air 09/12 0837 130 124/76 / 0800 98.4 130 18 124/76 / 0644 98.3 102 20 128/80 91 Room Air 09/11 2200 Room Air 09/11 2200 98.1 118 19 148/90 93 / 2128 120 144/100 09/11 2000 105 144/100 Intake & Output 09/12 0809/12 0000 09/11 1600 09/11 0809/11 0000 Intake Total 760 360 507 2890 480 380 Output Total 1750 370 395 4047 1850 Balance -990 18 540 740 -770 -1470 Intake, IV 10 28 60 Intake, Oral 750 629 813 8755 480 380 Number 1 0 Bowel Movements Output, Urine 1750 382 485 6068 1850 Patient 258 lb 288 lb Weight Physical Exam: General: WD/obese male in NAD; alert and oriented x 3 HEENT: NC/AT, PERRL, EOMI Neck: no JVD, no carotid bruit Heart: irregularly irregular w/o murmur Lungs: clear bilaterally Abdomen: soft, firm, NT, fluid wave, +ve bowel sounds : scrotal swelling Extremities: 2+ edema bilaterally Assessment/Plan Assessment/Plan * This patient has abdominal ascites without any clear evidence of JVD or increased RV pressures. I suspect he has a cirrhotic liver from alcohol abuse. * Continue chronic anticoagulation for atrial fibrillation with Eliquis 5mg BID. * Continue Metoprolol at 100mg BID. Add Cardizem 60mg BID. Monitor for significant pauses. In the setting of atrial fibrillation this is 5 seconds. Continue telemetry? Yes
[2017-09-12 22:24] VITALS: BP 128/74
--- NOTE | 2017-09-13 05:48 | PN- Housestaff ---
Ashish Mcginnis 09/13/17 0548: Subjective Follow-up For: Abdominal ascites Tele-Events Since Last Visit: Overnight the patient was in atrial fibrillation, with rates in the 120s-140s Subjective: Patient seen sitting comfortably at the bedside, in no acute distress. He reports subjective improvement in his abdominal, scrotal and lower extremity swelling. Patient denies chest pain, shortness of breath, palpitations, or dizziness. Review of Systems Constitutional: Denies: chills, fever, malaise, weakness. Objective Last 24 Hrs of Vital Signs/I&O Vital Signs Date Time Temp Pulse Resp B/P B/P Pulse O2 O2 Flow FiO2 Mean Ox Delivery Rate 09/13 0653 98.3 128 20 148/66 93 Room Air 09/13 0628 132 164/88 09/12 2224 98.6 112 22 128/74 92 Room Air 09/12 1813 147 168/112 09/12 1600 98.6 130 20 160/110 09/12 1503 98.7 118 20 140/110 92 Room Air 09/12 0837 130 124/76 09/12 0800 98.4 130 18 124/76 Intake & Output 09/13 08/ 0000 09/12 1600 Intake Total 400 760 Output Total 2215 1750 Balance -1815 -990 Intake, IV 10 Intake, Oral 400 750 Number 1 Bowel Movements Output, Urine 2215 1750 Patient 117.027 kg Weight Weight Bed scale Measurement Method Physical Exam General Appearance: Alert, Oriented X3, Cooperative, No Acute Distress HEENT: Atraumatic, PERRLA, EOMI Neck: Supple, No JVD, No thryomegaly Cardiovascular: Normal S1, Normal S2, No Murmurs, Irregular rhythm Lungs: Clear to Auscultation, Normal Air Movement Abdomen: Normal Bowel Sounds, Soft Neurological: Normal Gait, Normal Speech, Strength at 5/5 X4 Ext Current Medications: Current Medications Sig/Tomi Start time Last Medication Dose Route Stop Time Status Admin Acetaminophen 650 MG Q6P PRN 09/09 1615 AC PO Apixaban 5 MG BID 09/10 0913 AC 09/12 PO 2210 Diltiazem HCl 60 MG BID 09/13 899 AC 09/13 PO 0628 Folic Acid 1 MG DAILY 09/10 1216 AC 09/12 PO 0837 Furosemide 40 MG DAILY 09/13 899 AC PO Furosemide 20 MG ONCE ONE 09/12 1630 DC 09/12 IV 09/12 1631 1549 Furosemide 20 MG 7:30 AM, & 4:30 PM 09/10 1630 DC 09/12 IV 09/13 0600 1549 Magnesium Chloride 64 MG DAILY 09/10 1429 AC 09/12 PO 0839 Metoprolol Tartrate 100 MG BID 09/11 2100 AC 09/12 PO 1813 Oxycodone HCl 5 MG Q6H PRN 09/09 1615 AC PO Thiamine HCl 100 MG DAILY 09/10 1215 AC 09/12 PO 0838 Last 24 Hrs of Lab/Naldo Results Last 24 Hrs of Labs/Mics: Laboratory Tests 09/13/17 0649: Sodium Pending, Potassium Pending, Chloride Pending, Carbon Dioxide Pending, Anion Gap Pending, BUN Pending, Creatinine Pending, BUN/Creatinine Ratio Pending , Magnesium Pending Assessment/Plan Assessment: 47 o/m with pmh of alcohol abuse, hypertension, alcohol withdrawal comes with increased abdominal distension found to have new onset afib and hypertensive urgency. Patient again reports diminished swelling, objectively peripheral edema is improved. Overnight, the patient was tachycardic, he began diltiazem 60 mg p.o. twice daily this morning. 1. Abdominal distension/edema/ascites, Scrotal Edema, Lower extremity edema 2. Hepatic Steatosis/Cirrhosis 3. New onset afib 4. HTN 5. CHF unlikely; edema likely secondary to hepatic failure/cirrhosis PLAN: * Continue Lasix 40 mg PO daily * Cardizem 60 mg p.o. twice daily * Continue Eliquis * Continue Metoprolol GI/DVT prophyalxis full code. Problem List: 1. Scrotum swelling 2. Ascites 3. New onset a-fib Pain Ratin Pain Location: none Pain Goal: Pain 4 or less Pain Plan: per pathway Tomorrow's Labs & Rationales: None Prasanna Ruiz MD 09/13/17 1200: Attending MD Review Statement Attending Statement Attending MD Statement: examined this patient, discuss w/resident/PA/MAGAZINE EDITOR, agreed w/resident/PA/MAGAZINE EDITOR, reviewed EMR data (avail), discussed with nursing, discussed with case mgmt, amended to note Attending Assessment/Plan: Patient seen and examined. Resting comfortably not in any acute distress. No issues overnight. No significant events on telemetry monitoring overnight. No further episodes of sinus pauses. He reports feeling much better this morning denies any chest pain or shortness of breath at rest or with exertion. On examination he has adequate entry bilaterally with no added sounds. Peripheral edema has improved although still present. He has compression stockings in place. He is medically stable to be discharged today. He will be discharged on Eliquis for cognition therapy. He is going home on metoprolol 50 twice daily and Coreg 60 mg twice daily for rate control. He is also being discharged on Lasix 40 mg orally daily. He is to follow-up with the cardiology service and his primary care provider as an outpatient. He has been advised to abstain from further alcohol use in view of his hepatic disease.
[2017-09-13 06:53] VITALS: BP 148/66
[2017-09-13 08:23] VITALS: BP 142/90
--- NOTE | 2017-09-13 08:51 | Patient Discharge Instructions ---
Discharge Instructions General Discharge Information You were seen/treated for: Atrial fibrillation Hepatic cirrhosis Watch for these problems: With sudden onset swelling, shortness of breath, chest pain, abdominal pain, please go to your nearest emergency department. Special Instructions: Please follow-up with your circular [facility] and establish care with a primary care provider (Referral provided to Dr. Mckeon) Diet Continue normal diet: Yes Recommended Diet: Heart Healthy Activity Full Activity/No Limits: No Activity Self Limited: Yes Acute Coronary Syndrome Inclusion Criteria At DC or during hospital stay patient has or had the following: ACS DIAGNOSIS No Discharge Core Measures Meds if any: Prescribed or Continued at Discharge Meds if any: NOT Prescribed or Continued at Discharge Congestive Heart Failure Inclusion Criteria At DC or during hospital stay patient has or had the following: CHF DIAGNOSIS No Discharge Core Measures Meds if any: Prescribed or Continued at Discharge Meds if any: NOT Prescribed or Continued at Discharge Cerebrovascular accident Inclusion Criteria At DC or during hospital stay patient has or had the following: CVA/TIA Diagnosis No Discharge Core Measures Meds if any: Prescribed or Continued at Discharge Meds if any: NOT Prescribed or Continued at Discharge Venous thromboembolism Inclusion Criteria VTE Diagnosis No VTE Type NONE VTE Confirmed by (Test) NONE Discharge Core Measures - Per Current guidelines, there needs to be overlap - treatment for the first 5 days of Warfarin therapy. - If discharged on Warfarin prior to 5 days of - overlap therapy, the patient will need to be - assessed for post discharge needs including - *Post discharge parental anticoagulation - *Warfarin and/or parental anticoagulation education - *Follow up date to check INR post discharge At least 5 days overlap therapy as Inpatient No Meds if any: Prescribed or Continued at Discharge Note: Overlap Therapy is Warfarin and Anticoagulant Meds if any: NOT Prescribed or Continued at Discharge
[2017-09-13] MEDS ORDERED: METOPROLOL TART50 M1 PO (11:36)
[2017-09-13] MEDS ORDERED: CARDIZEM60 M1 PO (11:36)
[2017-09-13] MEDS ORDERED: ELIQUIS5 M1 PO (11:36)
[2017-09-13] MEDS ORDERED: LASIX40 M1 PO (11:36)
--- NOTE | 2017-09-13 13:04 | Event Note ---
Event Note Event Note: S- The patient was seen in the hallway attempting to remove his IV access and stating that he was leaving. He requested to leave AGAINST MEDICAL ADVICE. B- Discharge was discussed with the patient, pending cardiology evaluation as he was started on Cardizem 60mg PO BID this morning and his heart rate was elevated yesterday. A- Patient requesting to leave AGAINST MEDICAL ADVICE, and is alert, oriented x3 and has the capacity to make decisions. R- Discussed with patients the risks associated with leaving AGAINST
--- NOTE | 2017-09-13 16:23 | PN- Cardiology ---
Subjective Subjective: * No chest discomfort, shortness of breath, lightheadedness or palpitations. Edema has lessened. He has opted to leave AMA. * Heart rate is better controlled without significant pauses Objective Vital Signs and I&Os Vital Signs Date Time Temp Pulse Resp B/P B/P Pulse O2 O2 Flow FiO2 Mean Ox Delivery Rate 09/13 822 93 142/90 09/13 0800 Room Air Room Air 09/13 0653 98.3 128 20 148/66 93 Room Air 09/13 0628 132 164/88 09/13 0000 94 Room Air 09/12 2224 98.6 112 22 128/74 92 Room Air 09/12 1813 147 168/112 Intake & Output 09/13 0000 09/12 1600 09/12 0000 Intake Total 400 400 760 268 540 Output Total 2215 1750 250 Balance 400 -7625 990 18 540 Intake, IV 10 28 60 Intake, Oral 400 400 750 240 480 Number 1 0 Bowel Movements Output, Urine 2215 1750 250 Patient 258 lb 258 lb 258 lb Weight Weight Bed scale Measurement Method Physical Exam: General: WD/obese male in NAD; alert and oriented x 3 HEENT: NC/AT, PERRL, EOMI Neck: no JVD, no carotid bruit Heart: irregularly irregular w/o murmur Lungs: clear bilaterally Abdomen: soft, firm, NT, +ve bowel sounds Extremities: 2+ edema bilaterally Assessment/Plan Assessment/Plan * This patient has abdominal ascites without any clear evidence of JVD or increased RV pressures. I suspect he has a cirrhotic liver from alcohol abuse. * Continue chronic anticoagulation for atrial fibrillation with Eliquis 5mg BID. * Continue Metoprolol at 100mg BID. Continue Cardizem 60mg BID. Monitor for significant pauses. In the setting of atrial fibrillation this is 5 seconds. * Patient opted to leave AMA. Continue telemetry? Yes
== END 2017-09-13 13:30 | DRG 280 ==
LOC: ERH 11:21 → ERHI 14:59 → 1NO 14:59 → ENRESERV 15:38 → ENTRNSPT 16:36 → EDTRNSPT 16:38 → EDTRNSPTSTS 16:38 → 1NO 17:01 → CMPTRNSPT 17:05 → 1NO 09-12 08:40
PROVIDERS: Internal Medicine; Physician Assistant Medical
DX: K70.31 Alcoholic cirrhosis of liver with ascites (principal); I48.91 Unspecified atrial fibrillation; Y90.0 Blood alcohol level of less than 20 mg/100 ml; F10.21 Alcohol dependence, in remission; E66.9 Obesity, unspecified; Z68.39 Body mass index [BMI] 39.0-39.9, adult; E80.6 Other disorders of bilirubin metabolism; K76.0 Fatty (change of) liver, not elsewhere classified; K72.90 Hepatic failure, unspecified without coma; I10 Essential (primary) hypertension
CPT/HCPCS: 1NSP; 36415; 36592; 71045; 74018; 74177; 80307; 81001; 82436; 87040; 87086; 93005; 93010; 93306; 96374; 96375; 96376; 99291; G0480; J1644; J1940; J3490

== ENCOUNTER 2017-09-18 13:09 | Inpatient (IN) | payer OTHER ==
[~2017-09-18] VITALS: Ht 185.4 cm; Wt 131.1 kg
[~2017-09-18 13:09] MED LIST: CARDIZEM60 M1 PO; ELIQUIS5 M1 PO; LASIX40 M1 PO; METOPROLOL TART50 M1 PO
[2017-09-18 15:12] LABS: ABSOLUTE BASOPHIL COUNT 0 /CUMM (0.0-0.2); ABSOLUTE EOSINOPHIL COUNT 0.2 /CUMM (0.0-0.7); ABSOLUTE GRANULOCYTE CT 4.7 /CUMM (1.4-6.5); ABSOLUTE LYMPH COUNT 1.1 /CUMM (1.2-3.4); ABSOLUTE MONOCYTE COUNT 0.7 /CUMM (0.10-0.60); BASOPHIL % 0.5 % (0.0-2.0); EOSINOPHIL % 2.4 % (0-5); GRANULOCYTE % 69.7 % (42.2-75.2); MEAN CORPUSCULAR HGB 31.6 PG (27.0-31.0); MEAN CORPUSCULAR HGB CONC 33.1 G/DL (33.0-37.0); MEAN CORPUSCULAR VOLUME 95.5 FL (80.0-94.0); MEAN PLATELET VOLUME 8.7 FL (7.4-10.4); PLATELET COUNT 221 /CUMM (130-400); RBC DISTRIBUTION WIDTH 14.3 % (11.5-14.5); RED BLOOD CELL CT 4.19 /CUMM (4.70-6.10); WHITE BLOOD CELL COUNT 6.7 /CUMM (4.8-10.8)
[2017-09-18 15:17] LABS: PTT 31 SEC (25-37)
--- NOTE | 2017-09-18 15:34 | RADIOLOGY REPORT ---
EXAMINATION: XR CHEST, 2 VIEWS CLINICAL INFORMATION: Shortness of breath. Edema. COMPARISON: CT dated 09/09/2017 TECHNIQUE: PA and lateral views of the chest were obtained. FINDINGS: Cardiac silhouette remains enlarged. There is a persistent linear opacity at the right lung base which likely corresponds to the previously seen atelectasis in the right middle and right lower lobes. No new consolidation. Mild pulmonary venous congestion. No interstitial edema, pleural effusion, or pneumothorax. No acute osseous findings. IMPRESSION: Cardiomegaly with mild pulmonary venous congestion. Persistent linear platelike atelectasis in the right lung base. No consolidation.
--- NOTE | 2017-09-18 16:06 | ED DYSPNEA/ASTHMA COMPLAINT ---
History of Present Illness General Chief Complaint: Dyspnea (COPD, CHF, Other) Stated Complaint: SOB Source: patient, old records Exam Limitations: no limitations Vital Signs & Intake/Output Vital Signs & Intake/Output Vital Signs Date Time Temp Pulse Resp B/P B/P Pulse O2 O2 Flow FiO2 Mean Ox Delivery Rate 09/18 1857 105 18 188/100 95 Room Air 09/18 1828 97.9 116 18 188/100 09/18 1828 97.9 116 18 188/100 08 1611 95 Room Air 09/18 1610 76 18 188/100 95 Room Air 09/18 1338 97.9 90 26 155/105 91 Room Air Allergies Coded Allergies: diazepam (PER PT [facility] [place] 09/18/17) Reconcile Medications Apixaban (Eliquis) 5 MG TABLET 1 TAB PO BID AFIB Diltiazem HCl (Cardizem) 60 MG TABLET 1 TAB PO BID AFIB Furosemide (Lasix) 40 MG TABLET 1 TAB PO DAILY HEART FAILURE Metoprolol Tartrate 50 MG TABLET 1 TAB PO BID AFIB Triage Note: C/O WORSENING SOB AND FLUID RETENTION. STATES HE WAS DC'D FROM [place] ON 09/14, DXD WITH AFIB AND CIRRHOSIS. STATES HE FEELS WORSE, WITH INCREASING ABDOMINAL AND LEG SWELLING. DENIES CHEST PAIN. Triage Nurses Notes Reviewed? yes Onset: Gradual Duration: day(s): Timing: recent history Severity: moderate HPI: 47yo male with hx of a fib on eliquis and cardizem, HTN, cirrhosis presents to ED complaining of worsening swelling to abdomen and bilateral lower extremities as well as increasing dyspnea over the past few days. Patient was recently discharged from following new diagnoses of atrial fibrillation and cirrhosis. Patient was a former alcoholic, he quit drinking 2 and half years ago. Patient states that while he was here he was treated with IV Lasix and a swelling had improved at time of discharge. He states that since being discharged he has had increasing swelling and believes he requires a paracentesis. Patient reports dyspnea which is worse with laying flat. Patient denies chest pain, fevers. (Archana DORAN,Amanda Hill) Past History Travel History Traveled to [place] past 21 day No Medical History Any Pertinent Medical History? see below for history Cardiovascular: AFIB, hypertension Hepatic: cirrhosis History of MRSA: No History of VRE: No History of CDIFF: No Surgical History Surgical History: appendectomy Psychosocial History Who do you live with Patient/Self What is your primary language Mongolian Tobacco Use: Quit >30 days ago ETOH Use: denies use Family History Hx Contributory? No (Amanda Mackenzie) Review of Systems Review of Systems Constitutional: Reports: no symptoms. EENTM: Reports: no symptoms. Respiratory: Reports: see HPI. Cardiovascular: Reports: see HPI. GI: Reports: see HPI. Genitourinary: Reports: no symptoms. Musculoskeletal: Reports: no symptoms. Skin: Reports: no symptoms. Neurological/Psychological: Reports: no symptoms. Hematologic/Endocrine: Reports: no symptoms. Immunologic/Allergic: Reports: no symptoms. All Other Systems: Reviewed and Negative (Amanda Mackenzie) Physical Exam Physical Exam General Appearance: well developed/nourished, no apparent distress, alert, awake Head: atraumatic, normal appearance Eyes: Bilateral: normal appearance. Ears, Nose, Throat: hearing grossly normal Neck: normal inspection, supple, full range of motion Respiratory: normal breath sounds, no respiratory distress, lungs clear Cardiovascular: irregularly irregular Gastrointestinal: normal bowel sounds, abdomin firm and distended with mild erythema and warmth of lower abdomen Extremities: normal range of motion, 3+ pitting edema bilateral lower extremities Neurologic/Psych: awake, alert, oriented x 3 Skin: warm/dry Core Measures ACS in differential dx? No CVA/TIA Diagnosis No Sepsis Present: No Sepsis Focused Exam Completed? No (Amanda Mackenzie) Progress Differential Diagnosis: CHF, pneumonia, pleural effusion, ascites, SBP, cirrhosis Plan of Care: Orders Procedure Date/time Status Heart Healthy Diet 09/19 B Active BASIC ELECTROLYTES PLUS BUN&CR 09/19 0600 Active Pathway - chart 09/18 1754 Active House Staff 09/18 1754 Active Code Status 09/18 1754 Active Patient Data 09/18 1743 Active ED Holding Orders 09/18 1714 Active Admit to inpatient 09/18 1714 Active Vital Signs 09/18 1714 Active Code Status 09/18 1714 Complete CULTURE,BODY FLUID 09/18 1659 Active BODY FLUID CELL COUNT 09/18 1659 Active BODY FLUID ALBUMIN 09/18 1659 Active TROPONIN LEVEL 09/18 1439 Complete PARTIAL THROMBOPLASTIN TIME 09/18 1439 Complete PROTHROMBIN TIME 09/18 1439 Complete COMPREHENSIVE METABOLIC PANEL 09/18 1439 Complete CBC WITHOUT DIFFERENTIAL 09/18 1439 Complete B-TYPE NATRIURETIC PEP (BNP) 09/18 1439 Complete EKG 09/18 1312 Active VTE Mechanical Prophylaxis 09/18 UNK Active Telemetry/Retail Beauty Specialist 09/18 UNK Active Intake & Output 09/18 UNK Active Activity/Ambulation 09/18 UNK Active Current Medications Sig/Tomi Start time Last Medication Dose Stop Time Status Admin Acetaminophen 650 MG Q6P PRN 09/18 1799 AC (Tylenol) Ceftriaxone Sodium 1,000 MG ONCE ONE 09/18 1800 CAN (Rocephin) 09/18 180 Diltiazem HCl 60 MG BID 09/18 1800 AC 09/18 (Cardizem) 182 Metoprolol Tartrate 50 MG BID 09/18 1800 AC 09/18 (Lopressor) 182 Laboratory Tests 09/18/17 1450: Anion Gap 6, Estimated GFR > 60, BUN/Creatinine Ratio 15.6, Glucose 128 H, Calcium 9.0, Total Bilirubin 1.9 H, AST 45, ALT 38, Alkaline Phosphatase 82, Troponin I 0.04, Tdo-B-Jhbacoulgex Pept 1070 H, Total Protein 7.2, Albumin 3.8, Globulin 3.4, Albumin/Globulin Ratio 1.1, PT 22.0 H, INR 2.00 H, APTT 31, CBC w Diff NO MAN DIFF REQ, RBC 4.19 L, MCV 95.5 H, MCH 31.6 H, MCHC 33.1, RDW 14.3, MPV 8.7, Gran % 69.7, Lymphocytes % 16.8 L, Monocytes % 10.6 H, Eosinophils % 2.4, Basophils % 0.5, Absolute Granulocytes 4.7, Absolute Lymphocytes 1.1 L, Absolute Monocytes 0.7 H, Absolute Eosinophils 0.2, Absolute Basophils 0 Microbiology 09/18 1753 BLOOD: Blood Culture - CAN Cancelled: Cancelled via OE: Per MD Decision 09/18 1753 BLOOD: Blood Culture - CAN Cancelled: Cancelled via OE: Per MD Decision 09/18 1658 BODY FLUID: Body Fluid Culture - ORD 09/18 1658 BODY FLUID: Gram Stain - ORD Patient has significant distention on abdominal exam relating to his ascites. He had CT imaging of abdomen and pelvis on 09/09 which showed small volume ascites. I offer the patient repeat CT imaging given his reported worsening distention however he states he does not believe he can tolerate the CT imaging due to lying flat. Patient was medicated with 40 mg IV Lasix given his volume overload. Diagnostic tap was attempted by myself and Dr. Johns using ultrasound guidance however needle was not long enough to reach fluid pocket, patient will require ultrasound guided paracentesis through interventional radiology. Patient requires hospital stay for diuresis and paracentesis. Discussed findings with case management, they recommend full admission. Based on the patient's presentation and worsening symptoms is unlikely patient well fully recover within [address] Johns spoke with Dr. Bentley regarding telemetry admission. Diagnostic Imaging: Viewed by Me: Radiology Read. Discussed w/RAD: Radiology Read. CXR Impression: PATIENT: SHILOH WHALEN PRESENT AGE: 47 PATIENT ACCOUNT NO: [id number] : 68 LOCATION: [facility] ORDERING PHYSICIAN: Lazarus DORAN SERVICE DATE: 09/18/17 EXAM TYPE: RAD - XRY-CHEST XRAY, TWO VIEWS EXAMINATION: XR CHEST, 2 VIEWS CLINICAL INFORMATION: Shortness of breath. Edema. COMPARISON: CT dated 09/09/2017 TECHNIQUE: PA and lateral views of the chest were obtained. FINDINGS: Cardiac silhouette remains enlarged. There is a persistent linear opacity at the right lung base which likely corresponds to the previously seen atelectasis in the right middle and right lower lobes. No new consolidation. Mild pulmonary venous congestion. No interstitial edema, pleural effusion, or pneumothorax. No acute osseous findings. IMPRESSION: Cardiomegaly with mild pulmonary venous congestion. Persistent linear platelike atelectasis in the right lung base. No consolidation. DICTATED BY: River Ward MD DATE/TIME DICTATED:09/18/171527 FLATCAR WHACKER:DANIEL DATE/TIME TRANSCRIBED:09/18/171527 CONFIDENTIAL, DO NOT COPY WITHOUT APPROPRIATE AUTHORIZATION. <Electronically signed in Other Vendor System> SIGNED BY: River Ward MD 09/18/17 7432 Initial ED EKG: atrial fibrillation rate 98bpm, PVCs, nonspecific ST changes Prior EKG: unchanged (09/12/17) (Archana DORAN,Amanda Hill) Departure Departure Condition: Stable Clinical Impression Primary Impression: Fluid overload Qualifiers: Hypervolemia type: unspecified Qualified Code: E87.70 - Fluid overload, unspecified Secondary Impressions: Ascites Qualifiers: Ascites type: due to alcoholic cirrhosis Qualified Code: K70.31 - Alcoholic cirrhosis of liver with ascites Hypertension Qualifiers: Hypertension type: unspecified Qualified Code: I10 - Essential ( primary) hypertension Referrals: Patient Has No Primary Care Dr (PCP/Family) Departure Forms: Customer Survey General Discharge Information (Amanda Mackenzie) Departure Disposition: STILL A PATIENT Admission Note Spoke With: Christine Bentley MD Documentation of Exam: Documentation of any treatments & extenuating circumstances including Concerns Regarding Discharge (functional status, medication knowledge or non-compliance, living conditions, etc.) that warrant an admission rather than observation: [ Telemetry monitoring, diuresis, ultrasound-guided paracentesis, GI consultation, cardiology consultation, patient unlikely to be able to be discharged within the next 48 hours.] PA/FORKLIFT TRUCK MECHANIC Co-Sign Statement Statement: ED Attending supervision documentation- [X] I saw and evaluated the patient. I have also reviewed all the pertinent lab results and diagnostic results. I agree with the findings and the plan of care as documented in the PA's/FORKLIFT TRUCK MECHANIC's documentation. [X] I have reviewed the ED Record and agree with the PA's/FORKLIFT TRUCK MECHANIC's documentation. [] Additions or exceptions (if any) to the PAs/FORKLIFT TRUCK MECHANIC's note and plan are summarized below: [See above note] (Andreas GONZALEZ,Liborio Alexander) Critical Care Note Critical Care Note Critical Care Time: non-applicable (Amanda Mackenzie) Critical Care Time: non-applicable (Amanda Mackenzie)
--- NOTE | 2017-09-18 17:52 | History & Physical ---
Lorna GONZALEZ,[facility] 09/18/17 7562: General Information and HPI MD Statement: I have seen and personally examined SHILOH WHALEN and documented this H&P. The patient is a 47 year old M who presented with a patient stated chief complaint of [abdominal distention]. Source of Information: patient Exam Limitations: no limitations History of Present Illness: Mr. Whalen is a 47-year-old gentleman past medical history of hypertension and alcohol abuse, who was discharged from [facility] a week ago after being treated for new onset atrial fibrillation with RVR, hypertensive urgency and ?? Diastolic heart failure now presents with abdominal distention. According to the patient, after discharge from the hospital he was symptom-free for a day, but on the second day after discharge he started noticing abdominal distention again. He felt short of breath and was not able to sleep at night and had to sleep propped up. Denies any abdominal pain, nausea, vomiting, diarrhea/constipation, chest pain, cough or sputum production or recent fever/ chills. He has been taking his medications regularly and also watching his diet. Also has worsening lower extremity edema since a day after his discharge from the hospital. He has mild erythema on bilateral lower extremities which per the patient has been going on for a month now. Allergies/Medications Compliance With Home Meds: GOOD Past History Travel History Traveled to [place] past 21 day No Medical History Cardiovascular: AFIB, hypertension Hepatic: cirrhosis History of MRSA: No History of VRE: No History of CDIFF: No Surgical History Surgical History: appendectomy Past Family/Social History Psychosocial History Who Do You Live With? self Primary Language: Japanese ETOH Use: denies use Functional Ability ADLs Independent: dressing, eating, toileting, bathing. Ambulation: independent IADLs Independent: shopping, housework, finances, food prep, telephone, transportation , medication admin. Review of Systems Review of Systems Constitutional: Reports: no symptoms. EENTM: Reports: no symptoms. Cardiovascular: Reports: peripheral edema. Respiratory: Reports: short of breath. GI: Reports: distention. Genitourinary: Reports: no symptoms. Musculoskeletal: Reports: no symptoms. Skin: Reports: no symptoms. Neurological/Psychological: Reports: no symptoms. Hematologic/Endocrine: Reports: no symptoms. Immunologic/Allergic: Reports: no symptoms. All Other Systems: Reviewed and Negative Exam & Diagnostic Data Last 24 Hrs of Vital Signs/I&O Vital Signs Date Time Temp Pulse Resp B/P B/P Pulse O2 O2 Flow FiO2 Mean Ox Delivery Rate 09/18 1857 105 18 188/100 95 Room Air 09/18 1828 97.9 116 18 188/100 09/18 1828 97.9 116 18 188/100 09/18 1611 95 Room Air 09/18 1610 76 18 188/100 95 Room Air 09/18 1338 97.9 90 26 155/105 91 Room Air Intake & Output 09/18 1600 09/18 0800 09/18 0000 Intake Total Output Total Balance Patient 298 lb Weight Weight Reported by Patient Measurement Method Physical Exam General Appearance Alert, Oriented X3, Cooperative, No Acute Distress Skin No Rashes, No Breakdown HEENT Atraumatic, PERRLA, EOMI, Mucous Membr. moist/pink Cardiovascular Normal S1, Normal S2, No Murmurs, Irregular Lungs Clear to Auscultation, Normal Air Movement Abdomen No Tenderness, Distended and tense Extremities No Clubbing, No Cyanosis, +2 pitting edema bilaterally, erythema with scant blisters draining clear fluid Last 24 Hrs of Labs/Naldo: Laboratory Tests 09/18/17 1450: Anion Gap 6, Estimated GFR > 60, BUN/Creatinine Ratio 15.6, Glucose 128 H, Calcium 9.0, Total Bilirubin 1.9 H, AST 45, ALT 38, Alkaline Phosphatase 82, Troponin I 0.04, Lyc-W-Zvmckskrmap Pept 1070 H, Total Protein 7.2, Albumin 3.8, Globulin 3.4, Albumin/Globulin Ratio 1.1, PT 22.0 H, INR 2.00 H, APTT 31, CBC w Diff NO MAN DIFF REQ, RBC 4.19 L, MCV 95.5 H, MCH 31.6 H, MCHC 33.1, RDW 14.3, MPV 8.7, Gran % 69.7, Lymphocytes % 16.8 L, Monocytes % 10.6 H, Eosinophils % 2.4, Basophils % 0.5, Absolute Granulocytes 4.7, Absolute Lymphocytes 1.1 L, Absolute Monocytes 0.7 H, Absolute Eosinophils 0.2, Absolute Basophils 0 Microbiology 09/18 1753 BLOOD: Blood Culture - CAN Cancelled: Cancelled via OE: Per MD Decision 09/18 1753 BLOOD: Blood Culture - CAN Cancelled: Cancelled via OE: Per MD Decision 09/18 1658 BODY FLUID: Body Fluid Culture - ORD 09/18 1658 BODY FLUID: Gram Stain - ORD Diagnostic Data EKG Results A.Fib Heart rate 98 QTc 482 Assessment/Plan Assessment: Mr. Whalen is a 47-year-old gentleman past medical history of hypertension and alcohol abuse, who was discharged from [facility] a week ago after being treated for new onset atrial fibrillation with RVR, hypertensive urgency and ?? Diastolic heart failure now presents with abdominal distention. Problem list; 1. Ascites, with hx of alcohol abuse in the past. Ct scan showed on previous admission showed findings suggestive of underlying liver cirrhosis. Viral hepatitis panel was negative. US abdomen showed increased ecogenecity, underlying hepatic steatosis versus hepatocellular disease. 2. Hypertensive Urgency 3. Recently diagnosed A.fib 4. ?? Diastolic heart failure 5. Bilateral lower extremity erythema; ?? cellulitis has been going on for a month but patient has scant blisters draining serosanguineous discharge - Observe the patient on telemetry floor for 24-48 hours - Patient will need a diagnostic and therapeutic tap in a.m. - Hold Eliquis for now, resume in am after Paracentesis - Currently afebrile with normal WBC count, we will follow off antibiotic - Patient received a one-time dose of IV Lasix 40 mg in the ER, will reassess in a.m. for further need of IV Lasix. -We will resume metoprolol and Cardizem, if remains hypertensive can give IV metoprolol pushes overnight. -Cardiology consult. -Strict ins and outs - Follow of Abx of lower ext erythema, If febrile or elevated WBC count can start on antibiotics. DVT prophylaxis; ALPS and Eliquis Patient is full code As Ranked By This Provider Problem List: 1. Ascites Qualifiers Ascites type: due to alcoholic cirrhosis Qualified Code: K70.31 - Alcoholic cirrhosis of liver with ascites 2. Hypertension Qualifiers Hypertension type: unspecified Qualified Code: I10 - Essential (primary) hypertension Core Measures/Misc (10/24) Acute Coronary Syndrome ACS Diagnosis: No Congestive Heart Failure Congestive Heart Failure Diagnosis No Cerebrovascular Accident CVA/TIA Diagnosis: No VTE (View Protocol) VTE Risk Factors Age>40 No Mechanical VTE Prophylaxis d/t N/A MechProphylax Ordered No VTE Pharm Prophylaxis d/t NA PharmProphylax ordered Sepsis (View protocol) Sepsis Present: No If YES complete Sepsis Event Note If YES complete Sepsis Event Note Bartolo Mendoza MD 09/18/17 0506: General Information and HPI Statement: I have seen and personally examined SHILOH WHALEN and documented this H&P. The patient is a 47 year old M who presented with a patient stated chief complaint of [progressive abdominal distention]. Source of Information: patient Allergies/Medications Allergies: Coded Allergies: diazepam (PER PT [place] 09/18/17) Home Med list Apixaban (Eliquis) 5 MG TABLET 1 TAB PO BID AFIB Diltiazem HCl (Cardizem) 60 MG TABLET 1 TAB PO BID AFIB Furosemide (Lasix) 40 MG TABLET 1 TAB PO DAILY HEART FAILURE Metoprolol Tartrate 50 MG TABLET 1 TAB PO BID AFIB Past History Medical History Cardiovascular: AFIB, hypertension Gastrointestinal: alcoholic hepatitis Hepatic: cirrhosis Surgical History Surgical History: appendectomy Past Family/Social History Psychosocial History Smoking Status: Never Smoked ETOH Use: denies use Illicit Drug Use: denies illicit drug use Review of Systems Review of Systems Constitutional: Reports: see HPI. Exam & Diagnostic Data Last 24 Hrs of Vital Signs/I&O Vital Signs Date Time Temp Pulse Resp B/P B/P Pulse O2 O2 Flow FiO2 Mean Ox Delivery Rate 09/18 2115 Room Air 09/18 2037 98.3 70 18 158/88 91 Room Air 09/18 1857 105 18 188/100 95 Room Air 09/18 1828 97.9 116 18 188/100 09/18 1828 97.9 116 18 188/100 09/18 1611 95 Room Air 09/18 1610 76 18 188/100 95 Room Air 09/18 1338 97.9 90 26 155/105 91 Room Air Intake & Output 09/18 1600 09/18 0800 09/18 0000 Intake Total Output Total Balance Patient 298 lb Weight Weight Reported by Patient Measurement Method Physical Exam General Appearance Alert, Oriented X3, Cooperative, No Acute Distress Skin No Rashes, No Breakdown Skin Temp/Moisture Exam: Warm/Dry Sepsis Skin Exam (color): Normal for Ethnicity HEENT Atraumatic, PERRLA, EOMI, Mucous Membr. moist/pink Neck Supple, No JVD Lymphatic Axillary nl, Cervical nl Cardiovascular Normal S1, Normal S2, No Murmurs, Irregular Lungs Clear to Auscultation, Normal Air Movement Abdomen Distended and tense Neurological Normal Gait, Normal Speech Extremities No Clubbing, +2 pitting edema bilaterally, erythema with scant blisters draining clear fluid Sepsis Peripheral Pulse Location: Dorsalis Pedis Sepsis Peripheral Pulse Exam: Normal Sepsis Cap Refill Exam: <2 Sec Last 24 Hrs of Labs/Naldo: Laboratory Tests 09/18/17 1450: Anion Gap 6, Estimated GFR > 60, BUN/Creatinine Ratio 15.6, Glucose 128 H, Calcium 9.0, Total Bilirubin 1.9 H, AST 45, ALT 38, Alkaline Phosphatase 82, Troponin I 0.04, Spo-M-Xkkflrtzrkq Pept 1070 H, Total Protein 7.2, Albumin 3.8, Globulin 3.4, Albumin/Globulin Ratio 1.1, PT 22.0 H, INR 2.00 H, APTT 31, CBC w Diff NO MAN DIFF REQ, RBC 4.19 L, MCV 95.5 H, MCH 31.6 H, MCHC 33.1, RDW 14.3, MPV 8.7, Gran % 69.7, Lymphocytes % 16.8 L, Monocytes % 10.6 H, Eosinophils % 2.4, Basophils % 0.5, Absolute Granulocytes 4.7, Absolute Lymphocytes 1.1 L, Absolute Monocytes 0.7 H, Absolute Eosinophils 0.2, Absolute Basophils 0 Microbiology 09/18 1753 BLOOD: Blood Culture - CAN Cancelled: Cancelled via OE: Per MD Decision 09/18 1753 BLOOD: Blood Culture - CAN Cancelled: Cancelled via OE: Per MD Decision 09/18 1658 BODY FLUID: Body Fluid Culture - COLB 09/18 1658 BODY FLUID: Gram Stain - COLB Core Measures/Misc (10/24) Sepsis (View protocol) If YES complete Sepsis Event Note If YES complete Sepsis Event Note Attending MD Review Statement Attending Statement Attending MD Statement: examined this patient, discuss w/resident/PA/GROUND NUCLEAR WEAPONS ASSEMBLY OFFICER, agreed w/resident/PA/GROUND NUCLEAR WEAPONS ASSEMBLY OFFICER, reviewed EMR data (avail), reviewed images, amended to note Attending Assessment/Plan: This patient is a 47-year-old male with a significant past medical history for hypertension and alcohol abuse, who was discharged from [facility] a week ago after being treated for new onset atrial fibrillation with RVR, hypertensive urgency and Diastolic heart failure now presents with abdominal distention. According to the patient, after discharge from the hospital he was symptom-free for a day, but on the second day after discharge he started noticing abdominal distention again. He felt short of breath and was not able to sleep at night and had to sleep propped up. He has been taking his medications regularly and also watching his diet. Also has worsening lower extremity edema since a day after his discharge from the hospital. He came to the emergency department for evaluation he was found to have hypertensive urgency 180s over 100s, INR 2, hypokalemia 3.4, BNP 1070, CXR - Cardiomegaly with mild pulmonary venous congestion, and an EKG Afib, HR 98, QTc 482. The patient will be placed in observation for progressive ascites, congestive heart failure, A. fib. Well need a diagnostic and therapeutic tap in the a.m. hold Eliquis and other blood thinners. Make nothing by mouth after midnight. Cardiology consult. Full code
[2017-09-18 20:37] VITALS: BP 158/88
[2017-09-19 06:59] VITALS: BP 162/80
--- NOTE | 2017-09-19 07:34 | PN- Housestaff ---
Ashish Mcginnis 09/19/17 0733: Subjective Follow-up For: Abdominal ascites Atrial fibrillation Hypertensive urgency Tele-Events Since Last Visit: Atrial fibrillation overnight up to 143 on Tele, with episode of sinus bradycardia down to 45bpm Subjective: The patient is seen seated at the bedside on the forward edge of the chair so that his edematous scrotum may freely hang without being impinged underneath his distended abdomen. He is complaining of pain in the midline of the abdomen, extending to the flanks bilaterally, as well as difficulty taking a deep inspiration due to his increased abdominal girth. He denies chest pain, palpiations, nausea/vomiting/diarrhea. Review of Systems Constitutional: Denies: chills, diaphoresis, fever. Objective Last 24 Hrs of Vital Signs/I&O Vital Signs Date Time Temp Pulse Resp B/P B/P Pulse O2 O2 Flow FiO2 Mean Ox Delivery Rate 09/19 0659 98.4 118 22 162/80 96 Room Air 09/19 0415 130 18 180/110 09/18 2115 Room Air 09/18 2037 98.3 70 18 158/88 91 Room Air 09/18 1857 105 18 188/100 95 Room Air 09/18 1828 97.9 116 18 188/100 09/18 1828 97.9 116 18 188/100 09/18 1611 95 Room Air 09/18 1610 76 18 188/100 95 Room Air 09/18 1338 97.9 90 26 155/105 91 Room Air Intake & Output 09/19 0800 09/19 0000 09/18 1600 Intake Total 0 Output Total 1500 Balance -1500 Intake, Oral 0 Output, Urine 1500 Patient 135.171 kg 135.171 kg Weight Weight Bed scale Reported by Patient Measurement Method Physical Exam General Appearance: Alert, Oriented X3, Cooperative, Mild Distress HEENT: Atraumatic, PERRLA, EOMI, Mucous Membr. moist/pink Cardiovascular: Normal S1, Normal S2, No Murmurs, irregular rate Lungs: Clear to Auscultation, Normal Air Movement Abdomen: Firm and distended abdomen, tympanitic Extremities: 2+ pitting edema bilateral lower extremities Reproductive (MALE) Swollen and edematous scrotums Current Medications: Current Medications Sig/Tomi Start time Last Medication Dose Route Stop Time Status Admin Acetaminophen 650 MG Q6P PRN 09/18 1800 AC PO Ceftriaxone Sodium 1,000 MG ONCE ONE 09/18 1800 CAN IV 09/18 1801 Diltiazem HCl 60 MG BID 09/18 1800 AC 09/18 PO 1828 Furosemide 40 MG DAILY 09/18 1748 DC 09/18 PO 1811 Furosemide 40 MG ONCE ONE 09/18 1630 DC 09/18 IV 09/18 1631 1632 Furosemide 0 .STK-MED ONE 09/18 1629 DC IV Hydralazine HCl 5 MG ONCE ONE 09/19 0330 DC 09/19 IV 09/19 0331 0415 Lidocaine 0 .STK-MED ONE 09/18 1719 DC .ROUTE Lidocaine 20 ML ONCE ONE 09/18 1700 DC 09/18 ID 09/18 1701 1718 Metoprolol Tartrate 0 .STK-MED ONE 09/18 1825 DC PO Metoprolol Tartrate 50 MG BID 09/18 1800 AC 09/18 PO 1828 Potassium Chloride 0 .STK-MED ONE 09/18 1825 DC PO Potassium Chloride 40 MEQ ONCE ONE 09/18 1800 DC 09/18 PO 09/18 1801 1828 Last 24 Hrs of Lab/Naldo Results Last 24 Hrs of Labs/Mics: Laboratory Tests 09/19/17 0625: Sodium Pending, Potassium Pending, Chloride Pending, Carbon Dioxide Pending, Anion Gap Pending, BUN Pending, Creatinine Pending, BUN/Creatinine Ratio Pending , PT Pending, INR Pending, APTT Pending 09/18/17 1659: Fluid WBC Cancelled, Fld Total RBCs Counted Cancelled 09/18/17 1659: Fluid Albumin Cancelled 09/18/17 1450: Anion Gap 6, Estimated GFR > 60, BUN/Creatinine Ratio 15.6, Glucose 128 H, Calcium 9.0, Total Bilirubin 1.9 H, AST 45, ALT 38, Alkaline Phosphatase 82, Troponin I 0.04, Tkk-H-Pbuxbymwrhs Pept 1070 H, Total Protein 7.2, Albumin 3.8, Globulin 3.4, Albumin/Globulin Ratio 1.1, PT 22.0 H, INR 2.00 H, APTT 31, CBC w Diff NO MAN DIFF REQ, RBC 4.19 L, MCV 95.5 H, MCH 31.6 H, MCHC 33.1, RDW 14.3, MPV 8.7, Gran % 69.7, Lymphocytes % 16.8 L, Monocytes % 10.6 H, Eosinophils % 2.4, Basophils % 0.5, Absolute Granulocytes 4.7, Absolute Lymphocytes 1.1 L, Absolute Monocytes 0.7 H, Absolute Eosinophils 0.2, Absolute Basophils 0 Microbiology 09/18 1753 BLOOD: Blood Culture - CAN Cancelled: Cancelled via OE: Per Decision 09/18 1753 BLOOD: Blood Culture - CAN Cancelled: Cancelled via OE: Per Decision 09/18 1658 BODY FLUID: Body Fluid Culture - CAN Cancelled: SPEC. NEVER RECEIVED IN LAB. TO BE REORDERED WHEN OBTAINED. 09/18 1658 BODY FLUID: Gram Stain - CAN Cancelled: SPEC. NEVER RECEIVED IN LAB. TO BE REORDERED WHEN OBTAINED. Assessment/Plan Assessment: Mr. Mcrae is a 47-year-old gentleman past medical history of hypertension and significant alcohol abuse, cutting back two years ago, who was discharged from [facility] a week ago after being treated for new onset atrial fibrillation with RVR, and hypertensive urgency presenting again with abdominal distention. CT scan showed on previous admission showed findings suggestive of underlying liver cirrhosis. Viral hepatitis panel was negative. US abdomen showed increased ecogenecity, underlying hepatic steatosis versus hepatocellular disease. Ascites are likely due primarly to cirrhotic process, but previous echo showed EF of 50% and borderline LV systolic function. CHF or diastolic dysfunction possible, but unlikely to be primary etiology of rapid, recurrent ascites. Problem: 1. Ascites, with hx of alcohol abuse in the past. 2. Hypertensive Urgency 3. Atrial fibrillation 4. Scrotal edema 5. Bilateral lower extremity erythema; ?? cellulitis has been going on for a month but patient has scant blisters draining serosanguineous discharge Plan: * Patient last took Eliquis Tuesday morning, must remain off for 48 hours prior to paracentesis; holding eliquis * Currently afebrile with normal WBC count, will follow off antibiotic * Lasix 40mg IV BID * Continue metoprolol and Cardizem * If remains hypertensive start Amlodipine 10mg PO * Close monitoring of I's & O's DVT prophylaxis; ALPS Patient is full code Problem List: 1. Hypertension 2. Scrotum swelling 3. Ascites 4. Atrial fibrillation Pain Ratin Pain Location: Abdomen Pain Goal: Pain 4 or less Pain Plan: per pathway Tomorrow's Labs & Rationales: DAGOBERTO Lyons MDLizette 09/19/17 1047: Attending MD Review Statement Attending Statement Attending MD Statement: examined this patient, discuss w/resident/PA/TEST ANALYST, agreed w/resident/PA/TEST ANALYST, reviewed EMR data (avail), discussed with nursing, discussed with case mgmt, reviewed images Attending Assessment/Plan: 47-year-old male past medical history of hypertension, atrial fibrillation on Eliquis, recently diagnosed cirrhosis likely alcoholic in origin. He is was recently here from May 10 - May 14 and returned with hypertensive urgency and acute fluid overload. At this point he has ascites, and severe fluid overload. We are going to speak to IR to do a diagnostic and therapeutic tap. We are going to start him on IV Lasix and follow his numbers closely.
[2017-09-19 08:15] LABS: PT 18.7 SEC (9.4-12.5); PTT 29 SEC (25-37)
--- NOTE | 2017-09-19 12:55 | Cons- Cardiology ---
General Information and HPI Consulting Request Date of Consult: 09/19/17 Requested By: Serena GONZALEZ,Lizette Momin History of Present Illness: Mr. Mcrae is a 47 year old male with history of hypertension and alcohol abuse. He was recently discharged from [facility] and now returns for evaluation of severe shortness of breath, profound fatique and recurrent abdominal swelling. He cannot sleep well because lying down will make his short of breath. He feels that his enlarged abdomen is preventing his breathing. Otherwise the patient denies chest discomfort, lightheadedness or palpitations. To review this patient's prior history, a couple weeks ago this patient began experiencing a moderate to severe, non-radiating chest heaviness accompanied by shortness of breath and orthopnea. He also noted abdominal, scrotal and leg swelling. The patient had rapid palpitations accompanied by lightheadedness. In the ER the patient was found to be in atrial fibrillation with rapid heart rate of unkown duration. He was started on Eliquis for stroke prophylaxis. At present he has an elevated INR. It should be noted that this patient originally reported having stopped drinking two and a half years ago. Upon further questioning this did not include wine which he thought did not count because he heart that wine was good for one's heart. His EF is about 50% on a recent echo. Allergies/Medications Allergies: Coded Allergies: diazepam (PER PT [employer] 09/18/17) Home Med List: Apixaban (Eliquis) 5 MG TABLET 1 TAB PO BID AFIB Diltiazem HCl (Cardizem) 60 MG TABLET 1 TAB PO BID AFIB Furosemide (Lasix) 40 MG TABLET 1 TAB PO DAILY HEART FAILURE Metoprolol Tartrate 50 MG TABLET 1 TAB PO BID AFIB Review of Systems Review of Systems: A twelve point review of systems is unremarkable. Past History Travel History Traveled to [place] past 21 day No Medical History Blood Transfusion Hx: No EENT: NONE Cardiovascular: AFIB, hypertension Gastrointestinal: alcoholic hepatitis Hepatic: cirrhosis Renal: NONE Musculoskeletal: NONE Psychiatric: NONE Endocrine: NONE Blood Disorders: NONE Cancer(s): NONE SCRAP BALLER/Reproductive: NONE Surgical History Surgical History: appendectomy Psychosocial History Where Do You Live? Home Who Do You Live With? self Primary Language: Stateless Smoking Status: Never Smoked ETOH Use: denies use Illicit Drug Use: denies illicit drug use Functional Ability ADLs Independent: dressing, eating, toileting, bathing. Ambulation: independent IADLs Independent: shopping, housework, finances, food prep, telephone, transportation , medication admin. Exam & Diagnostic Data Vital Signs and I&O Vital Signs Date Time Temp Pulse Resp B/P B/P Pulse O2 O2 Flow FiO2 Mean Ox Delivery Rate 09/19 0746 118 162/80 09/19 0746 118 162/80 09/19 0659 98.4 118 22 162/80 96 Room Air 09/19 0415 130 18 180/110 09/18 2115 Room Air 09/18 2037 98.3 70 18 158/88 91 Room Air 09/18 1857 105 18 188/100 95 Room Air 09/18 1828 97.9 116 18 188/100 09/18 1828 97.9 116 18 188/100 09/18 1611 95 Room Air 09/18 1610 76 18 188/100 95 Room Air 09/18 1338 97.9 90 26 155/105 91 Room Air Intake & Output 09/19 1600 09/19 0800 09/19 0000 09/18 1600 09/18 0800 09/18 0000 Intake Total 240 0 Output Total 400 1500 Balance -160 -1500 Intake, Oral 240 0 Output, Urine 400 1500 Patient 298 lb 298 lb 298 lb Weight Weight Bed scale Bed scale Reported by Patient Measurement Method Physical Exam: General: WD/obese male in NAD; alert and oriented x 3 HEENT: NC/AT, PERRL, EOMI Neck: no JVD, no carotid bruit Heart: irregularly irregular w/o murmur Lungs: clear bilaterally Abdomen: soft, distended, firm, NT, +ve bowel sounds Extremities: 2+ edema bilaterally with venous stasis changes Assessment/Plan Assessment/Plan * This patient has abdominal ascites without any clear evidence of JVD or increased RV pressures. I suspect he has a cirrhotic liver from alcohol abuse. I have a low suspicion of decompensated CHF. This patient will need to be off Eliquis for a couple days before paracentesis although his INR may continue to be elevated due to hepatic insufficiency. * Continue Metoprolol and Cardizem for rate control. Monitor for significant pauses. In the setting of atrial fibrillation this is 5 seconds. Consult Acknowledgment - Thank you for your consult request.
[2017-09-19 14:58] VITALS: BP 168/110
[2017-09-19 22:10] VITALS: BP 170/96
--- NOTE | 2017-09-20 06:54 | PN- Housestaff ---
KevinHugoherrera 09/20/17 0653: Subjective Follow-up For: Abdominal ascites Subjective: Patient had systolic pause yesterday overnight lasting approximately 6 seconds. Afebrile. Patient had no complaint of this morning. Denies chest pain, palpitations. Endorses shortness of breath secondary to abdominal distention Review of Systems Constitutional: Reports: see HPI. Objective Last 24 Hrs of Vital Signs/I&O Vital Signs Date Time Temp Pulse Resp B/P B/P Pulse O2 O2 Flow FiO2 Mean Ox Delivery Rate 09/20 1444 98.0 94 18 140/96 92 Room Air 09/20 1121 126 172/106 09/20 0743 122 168/88 09/20 0743 122 168/88 09/20 0658 98.6 160 22 168/88 92 Room Air 09/19 2210 98.4 87 28 170/96 91 09/19 2154 101 170/98 09/19 2013 170/78 09/19 1744 148 152/72 Intake & Output 09/20 1600 09/20 0800 09/20 0000 Intake Total 800 150 Output Total 1225 600 900 Balance -425 -600 -750 Intake, Oral 800 150 Number 1 Bowel Movements Output, Urine 1225 600 900 Patient 302 lb Weight Physical Exam General Appearance: Alert, Oriented X3, Cooperative Cardiovascular: Regular Rate, Normal S1, Normal S2 Lungs: Clear to Auscultation, Normal Air Movement Abdomen: Normal Bowel Sounds, Distended, Extremities: erythematous rash present on bilat. shins, no discharge, weeping or crusted lesions appreciated. Assessment/Plan Assessment: Mr. Mcrae is a 47-year-old gentleman past medical history of hypertension and significant alcohol abuse, cutting back two years ago, who was discharged from [facility] a week ago after being treated for new onset atrial fibrillation with RVR, and hypertensive urgency presenting again with abdominal distention. CT scan showed on previous admission showed findings suggestive of underlying liver cirrhosis. Viral hepatitis panel was negative. US abdomen showed increased ecogenecity, underlying hepatic steatosis versus hepatocellular disease. Ascites are likely due primarly to cirrhotic process, but previous echo showed EF of 50% and borderline LV systolic function. CHF or diastolic dysfunction possible, but unlikely to be primary etiology of rapid, recurrent ascites. Problem: 1. Ascites, with hx of alcohol abuse in the past. 2. Hypertensive Urgency 3. Atrial fibrillation 4. Stasis Dermatitis #Abdominal ascites: Patient has extensive history of alcoholism, ascites is most likely due to liver cirrhosis. Hepatitis panel nonreactive in 2012. INR elevated 1.71 paracentesis on 09/21/2017 source of ascites, patient has normal renal function. #Hypertensive urgency: Patient is asymptomatic, normal CMP. Systolic blood pressure has been ranging between 150-170s for the past 24 hours -Cardiology is following patient #Atrial fibrillation -Continue metoprolol 50 mg twice daily -Continue diltiazem 60 mg twice daily #Stasis dermatitis: Warm, erythematous rash present on bilateral shins. Patient has been a afebrile, and duration of rash (1 month) seems less likely to be infectious in nature. Problem List: 1. Ascites Pain Ratin Pain Location: N/A Pain Goal: Remain pain free Pain Plan: TYLENOL Tomorrow's Labs & Rationales: BEP, INR Serena GONZALEZ,Lizette 09/20/17 1048: Attending MD Review Statement Attending Statement Attending MD Statement: examined this patient, discuss w/resident/PA/SHED BOSS, agreed w/resident/PA/SHED BOSS, reviewed EMR data (avail), discussed with nursing, discussed with case mgmt Attending Assessment/Plan: 37-year-old male with obesity and history of alcoholic liver disease likely alcoholic cirrhosis here with acute volume overload. We have him set up for a diagnostic and therapeutic paracentesis tomorrow, we had to wait as he was on Eliquis. We are actively diuresing him with Lasix 40 IV twice daily and will call a formal GI consult to optimize therapy. He has uncontrolled hypertension and is already on high-dose beta-anthony with a heart rate that is borderline so we will have to add Norvasc for blood pressure.
[2017-09-20 06:58] VITALS: BP 168/88
[2017-09-20 14:44] VITALS: BP 140/96
--- NOTE | 2017-09-20 18:42 | PN- Cardiology ---
Subjective Subjective: * Breathing is improved. Objective Vital Signs and I&Os Vital Signs Date Time Temp Pulse Resp B/P B/P Pulse O2 O2 Flow FiO2 Mean Ox Delivery Rate 09/20 1600 Room Air 09/20 1444 98.0 94 18 140/96 92 Room Air 09/20 1121 126 172/106 09/20 0743 122 168/88 09/20 0743 122 168/88 09/20 0658 98.6 160 22 168/88 92 Room Air 09/19 2210 98.4 87 28 170/96 91 09/19 2154 101 170/98 09/19 2013 170/78 Intake & Output 09/20 1600 09/20 0800 09/20 0000 09/19 1600 09/19 0809/19 0000 Intake Total 800 150 925 240 0 Output Total 1225 729 250 9979 400 1500 Balance -425 -600 -750 -1475 -160 -1500 Intake, Oral 800 150 925 240 0 Number 1 2 Bowel Movements Output, Urine 1225 434 226 4973 400 1500 Patient 302 lb 298 lb 298 lb Weight Weight Bed scale Bed scale Measurement Method Physical Exam: General: WD/obese male in NAD; alert and oriented x 3 HEENT: NC/AT, PERRL, EOMI Neck: no JVD, no carotid bruit Heart: irregularly irregular w/o murmur Lungs: clear bilaterally Abdomen: soft, distended, firm, NT, +ve bowel sounds Extremities: 2+ edema bilaterally with venous stasis changes Assessment/Plan Assessment/Plan * This patient has abdominal ascites without any clear evidence of JVD or increased RV pressures. I suspect he has a cirrhotic liver from alcohol abuse. I have a low suspicion of decompensated CHF. This patient will need to be off Eliquis for a couple days before paracentesis although his INR may continue to be elevated due to hepatic insufficiency. * Continue Metoprolol and Cardizem for rate control. Monitor for significant pauses. In the setting of atrial fibrillation this is 5 seconds. Continue telemetry? Yes
--- NOTE | 2017-09-20 21:47 | Cons- Gastroenterology ---
General Information and HPI Consulting Request Date of Consult: 09/20/17 Requested By: Serena GONZALEZ,Lizette Momin Reason for Consult: I was called earlier today (HD #3), to assess possible ascites & ? EtOH cirrhosis, in a patient admitted with HTN urgency & recently dxd afib 1 week prior Source of Information: patient, old records Exam Limitations: no limitations History of Present Illness: 47 y/o male, HTN, LVH, obese, no PMD, not compliant with followup, recently admitted to [facility] 09/09/17-09/13/17, presenting to the ER then with abdominal & scrotal swelling x 5 days & progressive LE edema x 2 weeks, found to be in afib with RVR. He was admitted to telemetry & txd with IV Cardizem & heparin drips. He was diuresed with Lasix. Heparin was switched to Eliquis. 09/09/17: ECHO- LVEF 50% & LVH (albeit with mod TR, no pulm HTN, nl RV) & : RUQ sono- hepatic steatosis, possibly with hepatocellular dysfunction, without HCC or dilated ducts. No gallstones, but nonspecific fluid within a thickened 7 mm GB wall, probably due to a small amount of ascites then. His abdomen was never tapped. His edema improved somewhat prior to D/C. *He was sent home on Eliquis 5 mg po BID, Toprol 50 mg po BID, Cardizem 60 mg po BID, & Lasix 40 mg daily. *Past hx EtOH abuse (was in [facility] for EtOH detox unit 12/2011, computer notes stating withdrawal seizures- *denied by patient). He reportedly drank several pints vodka daily & abused EtOH x 30+ years. He switched to wine in 2016, but didn't report this as EtOH, as he thought "wine is good for your heart". He seemed to be minimizing his wine intake. He was not taking any NSAIDS. He had multiple tattoos. He denied any IVDA, body piercings or blood transfusions. He was uncertain of his viral hepatitis status. He did not think he was ever immunized against either Hep A or B. He denied any jaundice, dark urine, light stools, confusion, PSE, or pruritus. He denied any fevers, chills, sx UTI , or URI. He had gained weight in conjunction with the peripheral edema, exact amount unknown. His appetite was good. He denied any FHx of inherited liver disease. There was a +FHx colon Ca (F- early onset 48, PGF- late onset). There is no FHx additional GI disease. His GB is intact. He is post appendectomy. He denied any rashes or arthralgias. He presented back to the [facility] ER 09/18/17 at 1:09 p.m., with HTN urgency- BP 155/105, P 90, R 26, T 97.9, O2 sat RA 91%. BP was then 188/100. He noted worsening SOB & fluid retention in his abdoman & legs. He denied any CP, but had BURCH. He was given IV Lasix in the ER & *refused a repeat CT. The patient noted mild periumbilical pain, perhaps related to an umbilical hernia. He denied any nausea, vomiting, GERD, hematemesis, odynophagia, dysphagia, early satiety, melena, rectal bleeding, diarrhea, constipation, obstipation, tenesmus, or change in stool caliber. The patient denied ever having had an abdominal tap. He denied ever having had a previous EGD. He stated he had his baseline & only colonoscopy at [facility] at age 34, which was "normal". 12/15/11: Hep A Ab, Hep Bs Ag, Hep B core Ab, & Hep C Ab- all neg. 09/09/17: U/A- clear, yellow, 1.015, 6.0, 3-5 WBC, 1-3 hyaline casts, 30+ prot; neg nitrite, neg esterase. 09/09/17: Utox- neg. 09/18/17: 1450- Admission- WBC 6.7, H/H 13.2/40, MCV 95.5, RDW 14.3, PLT 221, PT 22, INR 2.00, PTT 31, glu 128, BUN/Cr 14/0.9, GFR > 60, Na 139, K 3.4, HCO3 38, AG 6, Ca 9.0, alb 3.8, glob 3.4, TBil 1.9 (*old labs with fractionation seem to be most c/w Gilbert's), alk phos 82, AST 45, ALT 38, troponin 0.04, elevated BNP 1070. 09/19/17: PT 18.7, INR 1.71, PTT 29, BUN/Cr 14/0.9, GFR > 60, Na 140, K 3.5, HCO3 33, AG 11 09/20/17: BUN/Cr 16/1.0, GFR > 60, Na 139, K 3.5, HCO3 39, AG 6 09/18/17: EKG- afib @ 98, nl axis, multiform PVC, QS V1-V3, borderline prolonged QT interval, ? lat ischemia. 09/18/17: XR CHEST, 2 VIEWS- Cardiomegaly with mild pulmonary venous congestion. Persistent linear platelike atelectasis in the right lung base. No consolidation. Allergies/Medications Allergies: Coded Allergies: diazepam (PER PT [facility] 09/18/17) Home Med List: Apixaban (Eliquis) 5 MG TABLET 1 TAB PO BID AFIB Diltiazem HCl (Cardizem) 60 MG TABLET 1 TAB PO BID AFIB Furosemide (Lasix) 40 MG TABLET 1 TAB PO DAILY HEART FAILURE Metoprolol Tartrate 50 MG TABLET 1 TAB PO BID AFIB Current Medications: Current Medications Sig/Tomi Start time Last Medication Dose Route Stop Time Status Admin Acetaminophen 650 MG Q6P PRN 09/18 1800 AC PO Amlodipine Besylate 10 MG DAILY 09/20 0915 AC 09/20 PO 1121 Benzonatate 100 MG TID 09/19 2113 AC PO Diltiazem HCl 60 MG BID 09/18 1800 AC 09/20 PO 2018 Furosemide 40 MG 7:30 AM, & 4:30 PM 09/19 1630 AC 09/20 IV 1619 Losartan Potassium 25 MG DAILY 09/20 1508 AC PO Metoprolol Tartrate 50 MG BID 09/18 1800 AC 09/20 PO 2018 Past History Travel History Traveled to [place] past 21 day No Medical History Blood Transfusion Hx: No Neurological: NONE EENT: NONE Cardiovascular: AFIB, hypertension Gastrointestinal: alcoholic hepatitis Hepatic: cirrhosis (not documented) Renal: NONE Musculoskeletal: NONE Psychiatric: alcohol dependence Endocrine: obesity Blood Disorders: NONE Cancer(s): NONE PARK SERVICES SPECIALIST/Reproductive: NONE Surgical History Surgical History: appendectomy Family History Relations & Conditions If Any: FATHER (colon Ca- onset 48 (smoker)). , Age 71; Cause: Lung cancer. MOTHER, , Age 63; Cause: CVA (cerebral vascular accident). PGF, ; Cause: Colon cancer. Relation not specified for: malignant neoplasm of colon in first degree relative diagnosed when younger than 60 years of age Psychosocial History Where Do You Live? Home Who Do You Live With? self Services at Home: None Primary Language: Wolof Smoking Status: Never Smoked ETOH Use: heavy use (vodka daily x 30 yrs), wine since 2016 Illicit Drug Use: denies illicit drug use Living Will? no Power of Extension Service Specialist/HCP? no Other Social History: . 2 sons- A&W. Heavy EtOH x 30 yrs (vodka on a daily basis), "occasional wine" since 2016. No illicit drugs or IVDA. Old tattoos. 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 Functional Ability ADLs Independent: dressing, eating, toileting, bathing. Ambulation: independent IADLs Independent: shopping, housework, finances, food prep, telephone, transportation , medication admin. 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 Review of Systems Constitutional: Denies: chills, diaphoresis, fever, malaise, weakness, unexplained weight loss. EENTM: Denies: blurred vision, double vision, visual changes, eye pain, eye drainage, eye tearing, icterus, ear discharge, ear pain, ear redness, hearing changes, nasal congestion, epistaxis, nasal pain, throat pain, throat swelling, mouth pain, tooth pain. Cardiovascular: Reports: orthopena, peripheral edema. Denies: chest pain, edema, palpitations, syncope. Respiratory: Reports: orthopnea, short of breath (BURCH). Denies: cough, hemoptysis, sputum production, stridor, wheezing. GI: Reports: bloating. Denies: abdominal pain, constipation, diarrhea, distention, bowel incontinence, melena, nausea, bloody stool, changes in stool, vomiting, steatorrhea. Genitourinary: Denies: discharge, dysuria, frequency, hematuria, hesitation, nocturia, pain, urgency. Musculoskeletal: Denies: back pain, gout, joint pain, joint swelling, muscle pain, muscle stiffness, neck pain. Skin: Denies: cysts, change in skin color, change in hair/nails, dryness, erythema, jaundice, lesions, lymphangitis, lumps, moles, rash. Neurological/Psychological: Denies: anxiety, ataxia, cognitive dysfunction, confusion, depressed, dementia, emotional problems, headache, numbness, paresthesia, pre-existing deficit, petit mal seizures, tingling, tremors, tonic-clonic seizures, unable to move lower ext , unable to move upper ext, weakness. Hematologic/Endocrine: Denies: bruising, bleeding, polyuria, polydipsia. Immunologic/Allergic: Denies: splenectomy, HIV/AIDS, lymphadenopathy. All Other Systems: Reviewed and Negative Exam & Diagnostic Data Vital Signs and I&O Vital Signs Date Time Temp Pulse Resp B/P B/P Pulse O2 O2 Flow FiO2 Mean Ox Delivery Rate 09/20 2206 98.0 105 23 166/100 86 09/20 2018 124 166/110 09/20 1600 Room Air 09/20 1444 98.0 94 18 140/96 92 Room Air 09/20 1121 126 172/106 09/20 0743 122 168/88 09/20 0743 122 168/88 09/20 0658 98.6 160 22 168/88 92 Room Air Intake & Output 09/20 1600 09/20 0400 09/19 0400 09/18 1600 09/18 0400 Intake Total 501 178 9746 0 Output Total 1515 705 8509 1500 Balance -1025 -750 -1635 -1500 Intake, Oral 179 718 3921 0 Number 1 2 Bowel Movements Output, Urine 3077 701 6059 1500 Patient 302 lb 298 lb 298 lb 298 lb Weight Weight Bed scale Bed scale Reported by Patient Measurement Method Physical Exam: sl dec BS R base, afib tattoos Well-developed, well-nourished, obese male, in no apparent distress. Sclera borderline icteric. Conjunctiva pink. Oropharynx clear. No oral thrush.No aphthous ulcers. There is no adenopathy, thyromegaly, or JVD. No peripheral stigmata of inflammatory bowel disease on exam. No spiders on the anterior chest wall. No gynecomastia. No CVA tenderness. No spine tenderness. Lungs: clear to A &P, except for a few bibasilar crackles, & slight decreased BS at the right base. No wheezing or rhonchi. Heart exam: irregularly irregular rate rhythm, S1 and S2, with a soft I/ systolic murmur. Abdominal exam: normal bowel sounds, soft belly, obese, doughy abdominal wall with anasarca, essentially nontender, without guarding or rebound. ? Tiny reducible umbilical hernia. Otherwise, no mass. Liver approximately 18 cm by percussion. No splenomegaly. Negative Lopez sign. Mild fluid shift. No pulsatile mass. Digital rectal exam : deferred by patient. Scrotal edema. Testicular exam: API. Extremities without cyanosis or clubbing. 2+ pitting edema of LE B/L, with mild erythema, but no overt cellulitis. No palpable cords. Multiple tattoos. No rash. No arthropathy. No palmar erythema. No Dupuytren's contractures. Distal pulses 2+ bilaterally. DTRs 2+ bilaterally. Alert & oriented x 3. Right handed. Motor 5/5 B/L. No tremor. No asterixis. Results Pertinent Lab Results: Laboratory Tests 09/20 09/19 09/18 09/18 0634 0625 1659 1659 Chemistry Sodium (137 - 145 mmol/L) 139 140 Potassium (3.5 - 5.1 mmol/L) 3.5 3.5 Chloride (98 - 107 mmol/L) 94 L 97 L Carbon Dioxide (22 - 30 mmol/L) 39 H 33 H Anion Gap (5 - 16) 6 11 BUN (9 - 20 mg/dL) 16 14 Creatinine (0.7 - 1.2 mg/dL) 1.0 0.9 Estimated GFR (>60 ml/min) > 60 > 60 BUN/Creatinine Ratio (7 - 25 %) 16.0 15.6 Coagulation PT (9.4 - 12.5 SEC) 18.7 H INR (0.90 - 1.17) 1.71 H APTT (25 - 37 SEC) 29 Other Body Source Fluid WBC Cancelled Fld Total RBCs Counted Cancelled Fluid Albumin Cancelled 09/18 1450 Chemistry Sodium (137 - 145 mmol/L) 139 Potassium (3.5 - 5.1 mmol/L) 3.4 L Chloride (98 - 107 mmol/L) 95 L Carbon Dioxide (22 - 30 mmol/L) 38 H Anion Gap (5 - 16) 6 BUN (9 - 20 mg/dL) 14 Creatinine (0.7 - 1.2 mg/dL) 0.9 Estimated GFR (>60 ml/min) > 60 BUN/Creatinine Ratio (7 - 25 %) 15.6 Glucose (65 - 99 mg/dL) 128 H Calcium (8.4 - 10.2 mg/dL) 9.0 Total Bilirubin (0.2 - 1.3 mg/dL) 1.9 H AST (17 - 59 U/L) 45 ALT (21 - 72 U/L) 38 Alkaline Phosphatase (< 127 U/L) 82 Troponin I (<0.11 ng/ml) 0.04 [id number] Pept (<125 pg/mL) 1070 H Total Protein (6.3 - 8.2 g/dL) 7.2 Albumin (3.5 - 5.0 g/dL) 3.8 Globulin (1.9 - 4.2 gm/dL) 3.4 Albumin/Globulin Ratio (1.1 - 2.2 %) 1.1 Coagulation PT (9.4 - 12.5 SEC) 22.0 H INR (0.90 - 1.17) 2.00 H APTT (25 - 37 SEC) 31 Hematology CBC w Diff NO MAN DIFF REQ WBC (4.8 - 10.8 /CUMM) 6.7 RBC (4.70 - 6.10 /CUMM) 4.19 L Hgb (14.0 - 18.0 G/DL) 13.2 L Hct (42 - 52 %) 40.0 L MCV (80.0 - 94.0 FL) 95.5 H MCH (27.0 - 31.0 PG) 31.6 H MCHC (33.0 - 37.0 G/DL) 33.1 RDW (11.5 - 14.5 %) 14.3 Plt Count (130 - 400 /CUMM) 221 MPV (7.4 - 10.4 FL) 8.7 Gran % (42.2 - 75.2 %) 69.7 Lymphocytes % (20.5 - 51.1 %) 16.8 L Monocytes % (1.7 - 9.3 %) 10.6 H Eosinophils % (0 - 5 %) 2.4 Basophils % (0.0 - 2.0 %) 0.5 Absolute Granulocytes (1.4 - 6.5 /CUMM) 4.7 Absolute Lymphocytes (1.2 - 3.4 /CUMM) 1.1 L Absolute Monocytes (0.10 - 0.60 /CUMM) 0.7 H Absolute Eosinophils (0.0 - 0.7 /CUMM) 0.2 Absolute Basophils (0.0 - 0.2 /CUMM) 0 Imaging/Other Studies: 09/09/17: CT ANGIOGRAM CHEST WITHOUT AND WITH CONTRAST (CT PULMONARY ANGIOGRAM FOR PE)/CT ABDOMEN AND PELVIS WITH IV CONTRAST- 1. No evidence of central or segmental pulmonary emboli. 2. Cardiomegaly. Nonspecific subcm mediastinal nodes. 3. Moderate right hemidiaphragm elevation. There is bibasilar atelectasis, greater on the right likely due to compression. No consolidations are seen that raise suspicion for pneumonia. 4. Relative hypertrophy of the left hepatic lobe. Small abdominal ascites mostly centered around the liver and spleen. The constellation of these findings is suggestive of underlying liver cirrhosis. Clinical correlation requested. Normal GB. 5. Lymphadenopathy within the abdomen, etiology unknown (1.3 x 1.8 portacaval node & retroperitoneal 1.5 x 1.9 cm left para-aortic node). *VTE: Negative 09/09/17: XRY-PORTABLE CHEST XRAY- Suspected small to moderate right-sided pleural effusion. Cardiac silhouette enlarged. 09/09/17: CT HEAD WITHOUT CONTRAST/CT OF THE CERVICAL SPINE WITHOUT CONTRAST- 1. Technically limited study. Repeat evaluation when patient is able to hold still for better quality of images may be considered if clinically appropriate. 2. No gross CT evidence of acute intracranial hemorrhage or cervical spine fracture present. 09/09/17: ECHOCARDIOGRAM- CONCLUSIONS Normal size left ventricle. Moderate concentric left ventricular hypertrophy. Borderline left ventricular systolic function. Left ventricular ejection fraction is estimated at 50%. Mild right atrial dilatation. Mild left atrial dilatation. Mild mitral regurgitation. Mild to moderate tricuspid regurgitation. -Stanley Louis M.D. 09/10/17: US-LIMITED RUQ ABDOMEN Increased, heterogeneous echotexture throughout the liver raises possibility of underlying hepatic steatosis versus hepatocellular disease. No focal hepatic lesions. There is a small volume ascites throughout the abdomen. Nonspecific fluid within the thickened gallbladder wall, this may related to ascites. Negative sono Lopez sign. No dilated IHD/EHD with CBD 2 mm. 09/11/17: [id number] VIEW- Nonobstructive bowel gas pattern. 09/18/17: EKG- afib @ 98, nl axis, multiform PVC, QS V1-V3, borderline prolonged QT interval, ? lat ischemia. 09/18/17: XR CHEST, 2 VIEWS- Cardiomegaly with mild pulmonary venous congestion. Persistent linear platelike atelectasis in the right lung base. No consolidation. Assessment/Plan Assessment/Recommendations: 47 y/o male, HTN, LVH, obese, no PMD, not compliant with followup, recently admitted to [facility] 09/09/17-09/13/17, presenting to the ER then with abdominal & scrotal swelling x 5 days & progressive LE edema x 2 weeks, found to be in afib with RVR. He was admitted to telemetry & txd with IV Cardizem & heparin drips. He was diuresed with Lasix. Heparin was switched to Eliquis. 09/09/17: ECHO- LVEF 50% & LVH (albeit with mod TR, no pulm HTN, nl RV) & : RUQ sono- hepatic steatosis, possibly with hepatocellular dysfunction, without HCC or dilated ducts. No gallstones, but nonspecific fluid within a thickened 7 mm GB wall, probably due to a small amount of ascites then. His abdomen was never tapped. His edema improved somewhat prior to D/C. *He was sent home on Eliquis 5 mg po BID, Toprol 50 mg po BID, Cardizem 60 mg po BID, & Lasix 40 mg daily. *Past hx EtOH abuse (was in [facility] for EtOH detox unit 12/2011, computer notes stating withdrawal seizures- *denied by patient). He reportedly drank several pints vodka daily & abused EtOH x 30+ years. He switched to wine in 2016, but didn't report this as EtOH, as he thought "wine is good for your heart". He seemed to be minimizing his wine intake. He was not taking any NSAIDS. He had multiple tattoos. He denied any IVDA, body piercings or blood transfusions. He was uncertain of his viral hepatitis status. He did not think he was ever immunized against either Hep A or B. He denied any jaundice, dark urine, light stools, confusion, PSE,or pruritus. He denied any fevers, chills, sx UTI , or URI. He had gained weight in conjunction with the peripheral edema, exact amount unknown. His appetite was good.He denied any FHx of inherited liver disease. There was a +FHx colon Ca (F- early onset 50, PGF- late onset). There is no FHx additional GI disease. His GB is intact. He is post appendectomy. He denied any rashes or arthralgias. He presented back to the [facility] ER 09/18/17 at 1:09 p.m., with HTN urgency- BP 155/105, P 90, R 26, T 97.9, O2 sat RA 91%. BP was then 188/100. He noted worsening SOB & fluid retention in his abdoman & legs. He denied any CP, but had BURCH. He was given IV Lasix in the ER & *refused a repeat CT. The patient noted mild periumbilical pain, perhaps related to an umbilical hernia. He denied any nausea, vomiting, GERD, hematemesis, odynophagia, dysphagia, early satiety, melena, rectal bleeding, diarrhea, constipation, obstipation, tenesmus, or change in stool caliber. The patient denied ever having had an abdominal tap. He denied ever having had a previous EGD. He stated he had his baseline & only colonoscopy at [facility] at age 34, which was "normal". 12/15/11: Hep A Ab, Hep Bs Ag, Hep B core Ab, & Hep C Ab- all neg. 09/09/17: U/A- clear, yellow, 1.015, 6.0, 3-5 WBC, 1-3 hyaline casts, 30+ prot; neg nitrite, neg esterase. 09/09/17: Utox- neg. 09/18/17: 1450- Admission- WBC 6.7, H/H 13.2/40, MCV 95.5, RDW 14.3, PLT 221, PT 22, INR 2.00, PTT 31, glu 128, BUN/Cr 14/0.9, GFR > 60, Na 139, K 3.4, HCO3 38, AG 6, Ca 9.0, alb 3.8, glob 3.4, TBil 1.9 (*old labs with fractionation seem to be most c/w Gilbert's), alk phos 82, AST 45, ALT 38, troponin 0.04, elevated BNP 1070. 09/19/17: PT 18.7, INR 1.71, PTT 29, BUN/Cr 14/0.9, GFR > 60, Na 140, K 3.5, HCO3 33, AG 11 09/20/17: BUN/Cr 16/1.0, GFR > 60, Na 139, K 3.5, HCO3 39, AG 6 09/18/17: EKG- afib @ 98, nl axis, multiform PVC, QS V1-V3, borderline prolonged QT interval, ? lat ischemia. 09/18/17: XR CHEST, 2 VIEWS- Cardiomegaly with mild pulmonary venous congestion. Persistent linear platelike atelectasis in the right lung base. No consolidation. *Although I would have expected more of a fluid shift on exam, I am concerned that the patient may have a component of underlying cirrhosis accounting for his peripheral edema & abdominal girth. Having stated that, his initial CT of , when he was admitted for new onset afib with RVR, showed only small amounts of perihepatic & perisplenic ascites. Furthermore, although there is a component of coagulopathy that preceeded A/C tx, the patient's albumin:globulin ratio is normal & there is no thrombocytopenia, which go against cirrhosis. The patient has normal LVEF on echo & there does not appear to be right-sided CHF to account for the peripheral edema & abdominal girth. The past hx EtOH abuse is noted. Additionally, the patient is obese & also could have had fatty liver progressing to steatohepatitis & cirrhosis. *SUGGEST: 2g Na+ diet, then NPO for abdominal sono, with diagnostic (& if possible, therapeutic) paracentesis. If a large volume tap is done, would give 25g IV SPA/3L ascites removed, to help maintain intravascular pressue. *Would send ascitic fluid for: gram stain, cell count, C&S (in BC bottles, to increase yield), cytology, albumin, & protein, & send peripheral serum albumin level to calculate SAAG. *If the ascites were cardiac in nature, would expect high protein, high SAAG. *If the ascites were primarily hepatic in nature, would expect low protein, high SAAG. *Would also have radiology doppler the hepatic vein, portal vein, & if possible, the IVC (? adenopathy on prior CT- doubt IVC obstruction or web). Depending on the above, the patient may ultimately need additional liver studies, such as FibroScan, liver spleen scan, or perhaps liver biopsy with HVWPG. He will need the current dose of Lasix (40 mg daily) increased, with the addition of Aldactone, the latter starting at a dose of 50 mg daily, as his GFR & lytes tolerate. Strict I/ O's. Consider checking Hep A Ab, Hep Bs Ag, Hep B core Ab, Hep Bs Ab, Hep C Ab, HIV, [place], anti-smooth muscle Ab, anti-LKM Ab, AMA, A1AT, Fe, TIBC, & ferritin, fractionate bilirubin. Abstinence from EtOH was stressed to the patient. He seemed to be downplaying his current wine intake. If indeed he is cirrhotic, he will need serial AFP Q 6 mos & RUQ sono Q 6 mos for hepatoma surveillance. He should avoid NSAIDS, limit Tylenol to < 2g daily, get an annual flu shot, & a baseline Pneumovax. Additionally, he should be vaccinated against both Hep A & B , depending on his serologic status. Finally, if he is cirrhotic, one has to weigh the risk:benefit ratio of usp A/C tx. He is overdue for a followup colonoscopy, regarding the +FHx early onset colon Ca (F- onset 48/PGF- late onset), as apparently, his baseline & only colonoscopy at [facility] at age 34 was "normal". Furthermore, if he is cirrhotic, he would need an EGD to exclude varices. If he did have varices, I would advise swiching Meoprolol to a non- selective beta anthony, such as Inderal or Nadolol. Followup with medical team, for the nonspecific adenopathy noted on the imagimg studies of last admission. Further GI recommendations to follow, depending on clinical course. Problem List: 1. Ascites 2. Edema 3. Scrotum swelling 4. Gilbert's disease 5. Family history of malignant neoplasm of colon in first degree relative diagnosed when younger than 60 years of age 6. Atrial fibrillation 7. Fluid overload 8. Alcohol abuse Copies To: Serena GONZALEZ,Lizette Momin; Joo GONZALEZ PHD,Pineda Long Consult Acknowledgment - Thank you for your consult request.
[2017-09-20 22:07] VITALS: BP 166/100
--- NOTE | 2017-09-21 00:34 | ULTRASOUND REPORT ---
EXAMINATION: ABDOMINAL ULTRASOUND COMPLETE LIMITED ULTRASOUND ABDOMEN ORGAN DOPPLER CLINICAL INFORMATION: Ascites. Rule out liver pathology. Patient states abdominal bloating for 3 weeks and lower extremity swelling. COMPARISON: Right upper quadrant abdominal ultrasound dated 09/10/2017 CT scan of the abdomen and pelvis dated 09/09/2017. TECHNIQUE: Real-time imaging of the abdominal viscera. Limited abdominal organ Doppler. FINDINGS: Doppler evaluation of the abdominal vasculature is limited since the patient was unable to recline fully for the exam and was unable to suspend respiration given significant shortness of breath, coughing, and heavy breathing throughout the exam. ABDOMINAL ULTRASOUND AND LIMITED ABDOMINAL DOPPLER: PANCREAS: The pancreatic body is visualized and appears unremarkable. Remainder of the pancreas is obscured by overlying bowel gas. ABDOMINAL AORTA: The proximal abdominal aorta is normal in caliber. INFERIOR VENA CAVA: Visualized portions are normal. LIVER: The liver is enlarged with the right lobe of the liver extending below the lower pole of the right kidney. Diffusely heterogeneous liver parenchymal echotexture is noted with patchy areas of increased echogenicity scattered throughout the liver, consistent with liver disease. The liver contour is slightly lobulated. No focal lesion or intrahepatic biliary duct dilatation. LIVER VASCULATURE: The main, right and left portal veins are patent and normally directed with a normal phasic waveform visualized. Peak systolic velocities ranging between 23 and 26.3 cm/s are obtained in the main portal vein. Peak systolic velocities in the right portal vein of 14 cm/s and in the left portal vein of 11.9 cm/s are obtained. The right, middle, and left hepatic veins are patent and normally directed. Doppler waveform in the middle hepatic vein is found to be normal. Doppler waveform assessment in the left hepatic vein is limited, but within normal limits to the extent seen. Doppler waveform assessment of the right hepatic vein is limited and does not show the typical phasicity of flow, likely due to technical limitation. The main, right or left hepatic artery could not be identified. In reviewing the CT scan of the abdomen and pelvis dated 09/09/2017, at these the main and right hepatic arteries are found to be patent at that time. The splenic vein is patent, though direction of flow cannot be assessed. GALLBLADDER: The gallbladder is partially distended without evidence of stones, sludge, or polyps. Gallbladder wall is thickened with intramural edema seen, measuring up to 0.7 cm in thickness. No sonographic Lopez's sign is elicited while scanning over the gallbladder. COMMON BILE DUCT: Normal in caliber measuring 0.5 cm in diameter. RIGHT KIDNEY: Normal. No hydronephrosis. No renal calculi or focal parenchymal lesions. The kidney measures 12.5 cm in maximum dimension. LEFT KIDNEY: Normal. No hydronephrosis. No renal calculi or focal parenchymal lesions. The kidney measures 13.9 cm in maximum dimension. SPLEEN: Enlarged, but otherwise unremarkable. The spleen measures 15.4 cm in maximum dimension. FREE FLUID: There is a small amount of ascites around the liver and the spleen. IMPRESSION: 1. Nodular cirrhotic liver is seen with evidence of portal venous hypertension given the presence of splenomegaly and ascites. With color Doppler imaging, the main, right and left portal veins are patent with normal hepatopetal flow demonstrated. On recent CT scan, there was recanalization of the umbilical vein seen, which cannot be visualized on this exam due to technical factors. Overall hepatic Doppler assessment is limited as discussed above. 2. The splenic vein is patent but directionality of flow cannot be assessed on this exam. 3. Evaluation of the pancreas is essentially nondiagnostic due to obscuration by shadowing bowel gas. 4. Gallbladder wall thickening is seen, likely a reflection of the intra-abdominal ascites.
[2017-09-21 06:40] VITALS: BP 164/92
[2017-09-21 08:13] LABS: PT 17.7 SEC (9.4-12.5)
--- NOTE | 2017-09-21 08:21 | PN- Housestaff ---
KevinSusannelucila 09/21/17 0817: Subjective Follow-up For: Abdominal ascites Subjective: Patient 0332 one episode of bradycardia with heart rate dropping down to 35, with a 3.6 second pause. Patient is asymptomatic, denies headaches, dizziness, confusion, shortness of breath, chest pain, palpitation. I was informed by nurse this morning patient is refusing paracentesis because he states he is feeling better, when discussing with patient discussed the purpose of paracentesis which is diagnostic and therapeutic to which patient obliged and is willing to undergo procedure today. Patient has no complaint of. Denies fever, night sweats, chills Review of Systems Constitutional: Reports: see HPI. Objective Last 24 Hrs of Vital Signs/I&O Vital Signs Date Time Temp Pulse Resp B/P B/P Pulse O2 O2 Flow FiO2 Mean Ox Delivery Rate 09/21 0738 115 164/92 09/21 0737 102 164/92 09/21 0737 115 164/92 09/21 0737 115 164/92 09/21 0640 98.1 102 22 164/92 96 Room Air 09/21 0000 Room Air 09/20 2207 98.0 105 23 166/100 86 09/20 2018 124 166/110 09/20 1600 Room Air 09/20 1444 98.0 94 18 140/96 92 Room Air 09/20 1121 126 172/106 Intake & Output 09/21 1600 09/21 0800 09/21 0000 Intake Total 220 240 Output Total 400 1300 Balance -180 -1060 Intake, Oral 220 240 Output, Urine 400 1300 Patient 270 lb Weight Physical Exam General Appearance: Alert, Oriented X3, Cooperative Skin: warm, erytematous skin on bilat. shins Cardiovascular: Regular Rate, Normal S1, Normal S2 Lungs: Clear to Auscultation, Normal Air Movement Abdomen: Normal Bowel Sounds, distended, tense. Extremities: +2 pitting edema in bilat. LE Current Medications: Current Medications Sig/Tomi Start time Last Medication Dose Route Stop Time Status Admin Acetaminophen 650 MG Q6P PRN 09/18 1799 AC PO Amlodipine Besylate 10 MG DAILY 09/20 914 AC 09/21 PO 0738 Benzonatate 100 MG TID 09/19 2112 AC PO Diltiazem HCl 60 MG BID 09/18 1799 AC 09/21 PO 0737 Furosemide 40 MG 7:30 AM, & 4:30 PM 09/19 1630 AC 09/21 IV 0738 Losartan Potassium 25 MG DAILY 09/20 1508 AC 09/21 PO 0737 Metoprolol Tartrate 50 MG BID 09/18 1800 AC 09/21 PO 0737 Spironolactone 50 MG DAILY 09/21 0946 AC PO Last 24 Hrs of Lab/Naldo Results Last 24 Hrs of Labs/Mics: Laboratory Tests 09/21/17 0955: Iron Pending, TIBC Pending, Ferritin Pending, Total Bilirubin Pending, Direct Bilirubin Pending, [place] Titer Pending, Anti-Nuclear Antibody Pending 09/21/17 0955: Tyeuv-4-Prempcjbtva Pending, CBC w Diff Pending, WBC Pending, RBC Pending, Hgb Pending, Hct Pending, MCV Pending, MCH Pending, MCHC Pending, RDW Pending, Plt Count Pending, MPV Pending, Anti-Mitochondrial Ab Pending, Anti-Smooth Muscle Ab Pending, Livr/Kid Microsome 1 Ab Pending, HIV 1&2 Ab Western Blot Pending 09/21/17 0934: Iron Cancelled, TIBC Cancelled, Ferritin Cancelled, Total Bilirubin Cancelled, Direct Bilirubin Cancelled, HIV 1&2 Ab Western Blot Cancelled 09/21/17 0802: Anion Gap 9, Estimated GFR > 60, BUN/Creatinine Ratio 18.0, Fluid Glucose Pending, Fluid Total Protein Pending, Fluid Albumin Pending, Fluid LDH Pending 09/21/17 0620: PT 17.7 H, INR 1.62 H Microbiology 09/21 08 BODY FLUID: Body Fluid Culture - ORD 09/22 803 BODY FLUID: Gram Stain - ORD 09/21 599 BODY FLUID: Body Fluid Culture - COLB 09/21 599 BODY FLUID: Gram Stain - COLB Assessment/Plan Assessment: Mr. Mcrae is a 47-year-old gentleman past medical history of hypertension and significant alcohol abuse, cutting back two years ago, who was discharged from [facility] a week ago after being treated for new onset atrial fibrillation with RVR, and hypertensive urgency presenting again with abdominal distention. CT scan showed on previous admission showed findings suggestive of underlying liver cirrhosis. Viral hepatitis panel was negative. US abdomen showed increased ecogenecity, underlying hepatic steatosis versus hepatocellular disease. Ascites are likely due primarly to cirrhotic process, but previous echo showed EF of 50% and borderline LV systolic function. CHF or diastolic dysfunction possible, but unlikely to be primary etiology of rapid, recurrent ascites. Problem: 1. Ascites, with hx of alcohol abuse in the past. 2. Hypertensive Urgency 3. Atrial fibrillation 4. Stasis Dermatitis #Abdominal ascites: Patient has extensive history of alcoholism, ascites is most likely due to liver cirrhosis. Hepatitis panel nonreactive in 2012. INR elevated 1.71 paracentesis today sensitivity, cytology. -Follow-up HIV, [place], anti-smooth muscle antibody, anti-LK M antibody, AMA, A1AT -Follow-up iron, TIBC, ferritin -Follow-up total bilirubin, direct bilirubin, unconjugated bilirubin - Start Aldactone 50mg (Monitor K+ level, K-sparing diuretic and was started on ARB 09/20/17) #Hypertensive urgency: Patient is asymptomatic, normal CMP. Systolic blood pressure has been ranging between 150-170s for the past 24 hours -Cardiology is following patient #Atrial fibrillation -Continue metoprolol 50 mg twice daily -Continue diltiazem 60 mg twice daily -Last night patient had episode of heart rate going to 35 with a 3.6-second pause, will discuss with cardiology about discontinuing diltiazem due to history of pauses. #Stasis dermatitis: Warm, erythematous rash present on bilateral shins. Patient has been a afebrile, and duration of rash (1 month) seems less likely to be infectious in nature. Problem List: 1. Ascites Pain Ratin Pain Location: n/a Pain Goal: Remain pain free Pain Plan: tylenol Tomorrow's Labs & Rationales: anne marie Lyons MD,Lizette 09/21/17 0950: Attending MD Review Statement Attending Statement Attending MD Statement: examined this patient, discuss w/resident/PA/TABLE SAW OPERATOR, agreed w/resident/PA/TABLE SAW OPERATOR, reviewed EMR data (avail), discussed with nursing, discussed with case mgmt, reviewed images Attending Assessment/Plan: Initially patient refused the paracentesis but the house staff convinced him that it is in his best interest. He has portal hypertension with cirrhosis by imaging and splenomegaly likely all alcoholic in nature. We have him scheduled for diagnostic and therapeutic paracentesis today. Of note he had a significant pause overnight and may need to speak to the missileman about stopping the Cardizem. I think he does need the beta-anthony his pressure remains uncontrolled and we have added Norvasc and today we also added Aldactone 50 mg a day and will need to watch his renal function and potassium closely.
[2017-09-21 11:33] LABS: ABSOLUTE BASOPHIL COUNT 0 /CUMM (0.0-0.2); ABSOLUTE EOSINOPHIL COUNT 0.2 /CUMM (0.0-0.7); ABSOLUTE GRANULOCYTE CT 4.3 /CUMM (1.4-6.5); ABSOLUTE LYMPH COUNT 1.5 /CUMM (1.2-3.4); ABSOLUTE MONOCYTE COUNT 0.7 /CUMM (0.10-0.60); BASOPHIL % 0.6 % (0.0-2.0); EOSINOPHIL % 3.2 % (0-5); GRANULOCYTE % 62.8 % (42.2-75.2); HEMATOCRIT 40.6 % (42-52); MEAN CORPUSCULAR HGB 31.7 PG (27.0-31.0); MEAN CORPUSCULAR HGB CONC 33.4 G/DL (33.0-37.0); MEAN PLATELET VOLUME 9.1 FL (7.4-10.4); PLATELET COUNT 235 /CUMM (130-400); RBC DISTRIBUTION WIDTH 14.2 % (11.5-14.5); RED BLOOD CELL CT 4.27 /CUMM (4.70-6.10); WHITE BLOOD CELL COUNT 6.8 /CUMM (4.8-10.8)
[2017-09-21 13:45] VITALS: BP 150/98
[2017-09-21 16:00] VITALS: BP 136/100
--- NOTE | 2017-09-21 16:23 | Patient Discharge Instructions ---
Discharge Instructions General Discharge Information You were seen/treated for: Abdominal ascites You had these procedures: Paracentesis with removal of 3 L of fluid Watch for these problems: Abdominal swelling, chest pain, shortness of breath, fever Special Instructions: Please follow-up with PCP, cardiology and supercharger repair supervisor. Follow-up with [facility] for liver biopsy. We have decreased the dose of your blood thinner and increased the dose of your water pill and also started you on some new medications please take them accordingly. Diet Continue normal diet: Yes Recommended Diet: Heart Healthy Activity Full Activity/No Limits: Yes Activity Self Limited: Yes Acute Coronary Syndrome Inclusion Criteria At DC or during hospital stay patient has or had the following: ACS DIAGNOSIS No Discharge Core Measures Meds if any: Prescribed or Continued at Discharge Meds if any: NOT Prescribed or Continued at Discharge Congestive Heart Failure Inclusion Criteria At DC or during hospital stay patient has or had the following: CHF DIAGNOSIS No Discharge Core Measures Meds if any: Prescribed or Continued at Discharge Meds if any: NOT Prescribed or Continued at Discharge Cerebrovascular accident Inclusion Criteria At DC or during hospital stay patient has or had the following: CVA/TIA Diagnosis No Discharge Core Measures Meds if any: Prescribed or Continued at Discharge Meds if any: NOT Prescribed or Continued at Discharge Venous thromboembolism Inclusion Criteria VTE Diagnosis No VTE Type NONE VTE Confirmed by (Test) NONE Discharge Core Measures - Per Current guidelines, there needs to be overlap - treatment for the first 5 days of Warfarin therapy. - If discharged on Warfarin prior to 5 days of - overlap therapy, the patient will need to be - assessed for post discharge needs including - *Post discharge parental anticoagulation - *Warfarin and/or parental anticoagulation education - *Follow up date to check INR post discharge At least 5 days overlap therapy as Inpatient No Meds if any: Prescribed or Continued at Discharge Note: Overlap Therapy is Warfarin and Anticoagulant Meds if any: NOT Prescribed or Continued at Discharge
[2017-09-21] MEDS ORDERED: ALDACTONE25 MG PO (16:24)
[2017-09-21] MEDS ORDERED: LOSARTAN POTASS25 M1 PO (16:24)
--- NOTE | 2017-09-21 17:49 | PN- Cardiology ---
Subjective Subjective: * Patient feels much improved without shortness of breath post paracentesis. * atrial fibrillation with non-significant pauses Objective Vital Signs and I&Os Vital Signs Date Time Temp Pulse Resp B/P B/P Pulse O2 O2 Flow FiO2 Mean Ox Delivery Rate 09/21 1600 98.3 112 20 136/100 94 Room Air 09/21 1345 98.3 108 20 150/98 92 Room Air 09/21 0738 115 164/92 09/21 0737 102 164/92 09/21 0737 115 164/92 09/21 0737 115 164/92 09/21 0640 98.1 102 22 164/92 96 Room Air 09/21 0000 Room Air 09/20 2207 98.0 105 23 166/100 86 09/20 2018 124 166/110 Intake & Output 09/21 1600 09/21 0800 09/21 0000 09/20 1600 09/20 0000 Intake Total 800 220 240 800 150 Output Total 4800 400 1300 1225 600 900 Balance -4000 -180 -1060 -425 -600 -750 Intake, Oral 800 220 240 800 150 Number 1 1 Bowel Movements Output, Other 2700 Output, Urine 2100 400 1300 1225 600 900 Patient 270 lb 302 lb Weight Physical Exam: General: WD/obese male in NAD; alert and oriented x 3 HEENT: NC/AT, PERRL, EOMI Neck: no JVD, no carotid bruit Heart: irregularly irregular w/o murmur Lungs: clear bilaterally Abdomen: soft, distended, firm, NT, +ve bowel sounds Extremities: 2+ edema bilaterally with venous stasis changes Assessment/Plan Assessment/Plan * This patient has abdominal ascites without any clear evidence of JVD or increased RV pressures. I suspect he has a cirrhotic liver from alcohol abuse. I have a low suspicion of decompensated CHF. This patient need to restart Eliquis for stroke prophylaxis tomorrow. Will use a lower dose of 2.5mg BID since this patient appears to be auto-anticoagulated; likely from his liver disease. * Continue Metoprolol and Cardizem for rate control. Monitor for significant pauses. In the setting of atrial fibrillation this is 5 seconds. * Agree with beginning spironolactone. Increase Lasix to 60mg daily. Continue telemetry? Yes
--- NOTE | 2017-09-21 20:35 | PN- Gastroenterology ---
Assessment/Plan GI Assessment/Recommendations: 47 y/o male, HTN, LVH, obese, no PMD, not compliant with followup, recently admitted to [facility] 09/09/17-09/13/17, presenting to the ER then with abdominal & scrotal swelling x 5 days & progressive LE edema x 2 weeks, found to be in afib with RVR. He was admitted to telemetry & txd with IV Cardizem & heparin drips. He was diuresed with Lasix. Heparin was switched to Eliquis. 09/09/17: ECHO- LVEF 50% & LVH (albeit with mod TR, no pulm HTN, nl RV) & : RUQ sono- hepatic steatosis, possibly with hepatocellular dysfunction, without HCC or dilated ducts. No gallstones, but nonspecific fluid within a thickened 7 mm GB wall, probably due to a small amount of ascites then. His abdomen was never tapped. His edema improved somewhat prior to D/C. *He was sent home on Eliquis 5 mg po BID, Toprol 50 mg po BID, Cardizem 60 mg po BID, & Lasix 40 mg daily. *Past hx EtOH abuse (was in [facility] for EtOH detox unit 12/2011, computer notes stating withdrawal seizures- *denied by patient). He reportedly drank several pints vodka daily & abused EtOH x 30+ years. He switched to wine in 2016, but didn't report this as EtOH, as he thought "wine is good for your heart". He seemed to be minimizing his wine intake. He was not taking any NSAIDS. He had multiple tattoos. He denied any IVDA, body piercings or blood transfusions. He was uncertain of his viral hepatitis status. He did not think he was ever immunized against either Hep A or B. He denied any jaundice, dark urine, light stools, confusion, PSE,or pruritus. He denied any fevers, chills, sx UTI , or URI. He had gained weight in conjunction with the peripheral edema, exact amount unknown. His appetite was good.He denied any FHx of inherited liver disease. There was a +FHx colon Ca (F- early onset 48, PGF- late onset). There is no FHx additional GI disease. His GB is intact. He is post appendectomy. He denied any rashes or arthralgias. He presented back to the [facility] 09/18/17 at 1:09 p.m., with HTN urgency- BP 155/105, P 90, R 26, T 97.9, O2 sat RA 91%. BP was then 188/100. He noted worsening SOB & fluid retention in his abdoman & legs. He denied any CP, but had BURCH. He was given IV Lasix in the ER & *refused a repeat CT. The patient noted mild periumbilical pain, perhaps related to an umbilical hernia. He denied any nausea, vomiting, GERD, hematemesis, odynophagia, dysphagia, early satiety, melena, rectal bleeding, diarrhea, constipation, obstipation, tenesmus, or change in stool caliber. The patient denied ever having had an abdominal tap. He denied ever having had a previous EGD. He stated he had his baseline & only colonoscopy at [facility] at age 34, which was "normal". 12/15/11: Hep A Ab, Hep Bs Ag, Hep B core Ab, & Hep C Ab- all neg. 09/09/17: U/A- clear, yellow, 1.015, 6.0, 3-5 WBC, 1-3 hyaline casts, 30+ prot; neg nitrite, neg esterase. 09/09/17: Utox- neg. 09/18/17: 1450- Admission- WBC 6.7, H/H 13.2/40, MCV 95.5, RDW 14.3, PLT 221, PT 22, INR 2.00, PTT 31, glu 128, BUN/Cr 14/0.9, GFR > 60, Na 139, K 3.4, HCO3 38, AG 6, Ca 9.0, alb 3.8, glob 3.4, TBil 1.9 (*old labs with fractionation seem to be most c/w Gilbert's), alk phos 82, AST 45, ALT 38, troponin 0.04, elevated BNP 1070. 09/19/17: PT 18.7, INR 1.71, PTT 29, BUN/Cr 14/0.9, GFR > 60, Na 140, K 3.5, HCO3 33, AG 11 09/20/17: BUN/Cr 16/1.0, GFR > 60, Na 139, K 3.5, HCO3 39, AG 6 09/18/17: EKG- afib @ 98, nl axis, multiform PVC, QS V1-V3, borderline prolonged QT interval, ? lat ischemia. 09/18/17: XR CHEST, 2 VIEWS- Cardiomegaly with mild pulmonary venous congestion. Persistent linear platelike atelectasis in the right lung base. No consolidation. *Although I would have expected more of a fluid shift on exam, I am concerned that the patient may have a component of underlying cirrhosis accounting for his peripheral edema & abdominal girth. Having stated that, his initial CT of , when he was admitted for new onset afib with RVR, showed only small amounts of perihepatic & perisplenic ascites. Furthermore, although there is a component of coagulopathy that preceeded A/C tx, the patient's albumin:globulin ratio is normal & there is no thrombocytopenia, which go against cirrhosis. The patient has normal LVEF on echo & there does not appear to be right-sided CHF to account for the peripheral edema & abdominal girth. The past hx EtOH abuse is noted. Additionally, the patient is obese & also could have had fatty liver progressing to steatohepatitis & cirrhosis. 09/20/17: US-ABD/PELV ORGAN DOPPLER; US-COMPLETE ABDOMEN- 1. Enlarged nodular cirrhotic liver is seen with evidence of portal venous hypertension given the presence of splenomegaly and ascites. With color Doppler imaging, the main, right and left portal veins are patent with normal hepatopetal flow demonstrated. On recent CT scan, there was recanalization of the umbilical vein seen, which cannot be visualized on this exam due to technical factors. Overall hepatic Doppler assessment is limited as discussed above. 2. The splenic vein is patent but directionality of flow cannot be assessed on this exam. Enlarged 15.4 cm spleen. 3. Evaluation of the pancreas is essentially nondiagnostic due to obscuration by shadowing bowel gas. 4. Gallbladder wall thickening is seen, likely a reflection of the intra- abdominal ascites. There is a small amount of ascites around the liver and the spleen. *Sono/limited doppler-cirrhotic liver, limited views show patent HV, etc. I contacted Dr. De La O, of [facility], 09/21/17 at 7:45 p.m. to see if the small amount of ascites near the liver & spleen was tappable. *Apparently, 2.7L ascitic fluid was tapped by IR after the sono on 09/21/17, but the report was not yet dictated. *He got 25g SPA with the tap. He had some leakage after the tap, controlled with a stomal bag. 09/21/17: *Ascitic fluid- 2500 RBC, 1675 WBC (54L/46Mono-Meso)- *no polys, therefore, no SBP. *No serum albumin was sent 09/21/17 to calculate SAAG! *I called the lab to add on a serum albumin to be able to calculate a SAAG. BF albumin 2.7. Interestingly , *BF protein elevated 5.4, going against cirrhotic ascites from a primary hepatic source (*expect low BF protein with this). 09/21/17: *Ascitic cytology- pending- rule out Ca (nonspecific nodes on prior imaging studies). 09/21/17: *Ascitic C&S- pending. 09/21/17: *serum albumin 3.8, so *SAAG- *borderline elevated 1.1 09/21/17: WBC 6.8, H/H 13.5/40.6, MCV 95, RDW 14.2, PLT 235, PT 17.7, INR 1.62 09/21/17: BUN/Cr 18/1.0, GFR > 60, Na 138, K 3.6, HCO3 37, AG 9, TBil 2.2, DBil 0.4 (*c/w Gilbert's), 09/21/17: *Fe 73, TIBC 454, *nl Fe sat 16.1%, *nl ferritin 79.1 09/21/17: *HIV- neg 09/21/17: *CHARLOTTE, anti-LKM Ab, anti-smooth muscle Ab, AMA, A1AT- *pending. A hepatitis panel was not sent 09/21/17, despite my request, & I called the lab to add this, as well. 09/21/17: *Hep A Ab, Hep Bs Ag, Hep B core Ab, Hep C Ab- *all pending. *As of 09/21/17, the patient was found to have an episode of bradycardia at 0332 , with HR 35 & 3.6 sec pause. He was asx with this. He felt better after paracentesis later in the day. The patient remained in afib & was felt to have non-significant pauses, per cardiology (Toprol & Cardizem continued). Lower dose Eliquis 2.5 mg BID was resumed, as the patient was probably somewhat auto A/C, from his liver disease. *Aldactone 50 mg daily was rxd, along with increased dose of Lasix 60 mg daily. The patient was feeling better after the 09/21/17: abdominal tap. He was less short of breath. He had no chest pain or palpitations. He remained with peripheral edema, but his abdominal girth was somewhat decreased. He was ambulating. *SUGGEST: 2g Na+ diet. *Await 09/21/17: ascitic C&S (in BC bottles, to increase yield) & ascitic cytology. In view of the mixed findings on the ascitic fluid, the patient may ultimately need a transjugular liver biopsy with HVWPG (off Eliquis then). *Continue Lasix 60 mg daily & Aldactone 50 mg daily, as his GFR & lytes tolerate. Strict I/O's (*stomal bag post ascitic leak). *Await 09/21/17: Hep A Ab, Hep Bs Ag, Hep B core Ab, Hep Bs Ab, Hep C Ab, CHARLOTTE, anti-smooth muscle Ab, anti-LKM Ab, AMA, A1AT. Abstinence from EtOH was stressed to the patient. He seemed to be downplaying his current wine intake.*Advise serial AFP Q 6 mos & RUQ sono Q 6 mos for hepatoma surveillance. Avoid NSAIDS, limit Tylenol to < 2g daily, get an annual flu shot, & a baseline Pneumovax. Additionally, he should be vaccinated against both Hep A & B, depending on his serologic status. As he is probably cirrhotic (tap showed mixed picture- ? 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 *He is on low-dose Eliquis 2.5 mg po BID, as he is partially auto A/C. *He is overdue for a followup colonoscopy, regarding the +FHx early onset colon Ca (F- onset 48/PGF- late onset), as apparently, his baseline & only colonoscopy at [facility] at age 34 was "normal". Furthermore, as there is some component of cirrhosis, he would need an EGD to exclude varices. If he did have varices, I would advise swiching Meoprolol to a non-selective beta anthony, such as Inderal or Nadolol. *Followup with medical team, for the nonspecific adenopathy noted on the imagimg studies of last admission (again, await 09/21/17: ascitic cytology). The case was discussed with Dr. Ge & Dr. Ethan Lyons. Further GI recommendations to follow, depending on clinical course. Problem List: 1. Ascites 2. Edema 3. Scrotum swelling 4. Gilbert's disease 5. Alcohol abuse 6. Family history of malignant neoplasm of colon in first degree relative diagnosed when younger than 60 years of age 7. Atrial fibrillation 8. Fluid overload Subjective Subjective: 09/20/17: US-ABD/PELV ORGAN DOPPLER; US-COMPLETE ABDOMEN- 1. Enlarged nodular cirrhotic liver is seen with evidence of portal venous hypertension given the presence of splenomegaly and ascites. With color Doppler imaging, the main, right and left portal veins are patent with normal hepatopetal flow demonstrated. On recent CT scan, there was recanalization of the umbilical vein seen, which cannot be visualized on this exam due to technical factors. Overall hepatic Doppler assessment is limited as discussed above. 2. The splenic vein is patent but directionality of flow cannot be assessed on this exam. Enlarged 15.4 cm spleen. 3. Evaluation of the pancreas is essentially nondiagnostic due to obscuration by shadowing bowel gas. 4. Gallbladder wall thickening is seen, likely a reflection of the intra- abdominal ascites. There is a small amount of ascites around the liver and the spleen. *Sono/limited doppler-cirrhotic liver, limited views show patent HV, etc. I contacted Dr. De La O, of [facility], 09/21/17 at 7:45 p.m. to see if the small amount of ascites near the liver & spleen was tappable. *Apparently, 2.7L ascitic fluid was tapped by IR after the sono on 09/21/17, but the report was not yet dictated. *He got 25g SPA with the tap. He had some leakage after the tap, controlled with a stomal bag. 09/21/17: *Ascitic fluid- 2500 RBC, 1675 WBC (54L/46Mono-Meso)- *no polys, therefore, no SBP. *No serum albumin was sent 09/21/17 to calculate SAAG! *I called the lab to add on a serum albumin to be able to calculate a SAAG. BF albumin 2.7. Interestingly , *BF protein elevated 5.4, going against cirrhotic ascites from a primary hepatic source (*expect low BF protein with this). 09/21/17: *Ascitic cytology- pending- rule out Ca (nonspecific nodes on prior imaging studies). 09/21/17: *Ascitic C&S- pending. 09/21/17: *serum albumin 3.8, so *SAAG- *borderline elevated 1.1 09/21/17: WBC 6.8, H/H 13.5/40.6, MCV 95, RDW 14.2, PLT 235, PT 17.7, INR 1.62 09/21/17: BUN/Cr 18/1.0, GFR > 60, Na 138, K 3.6, HCO3 37, AG 9, TBil 2.2, DBil 0.4 (*c/w Gilbert's), 09/21/17: *Fe 73, TIBC 454, *nl Fe sat 16.1%, *nl ferritin 79.1 09/21/17: *HIV- neg 09/21/17: *CHARLOTTE, anti-LKM Ab, anti-smooth muscle Ab, AMA, A1AT- *pending. A hepatitis panel was not sent 09/21/17, despite my request, & I called the lab to add this, as well. 09/21/17: *Hep A Ab, Hep Bs Ag, Hep B core Ab, Hep C Ab- *all pending. *As of 09/21/17, the patient was found to have an episode of bradycardia at 0332 , with HR 35 & 3.6 sec pause. He was asx with this. He felt better after paracentesis later in the day. The patient remained in afib & was felt to have non-significant pauses, per cardiology (Toprol & Cardizem continued). Lower dose Eliquis 2.5 mg BID was resumed, as the patient was probably somewhat auto A/C, from his liver disease. *Aldactone 50 mg daily was rxd, along with increased dose of Lasix 60 mg daily. The patient was feeling better after the 09/21/17: abdominal tap. He was less short of breath. He had no chest pain or palpitations. He remained with peripheral edema, but his abdominal girth was somewhat decreased. He was ambulating. Review of Systems: Full 14 point ROS otherwise noncontributory, and as above. Review of Systems Constitutional: Denies: chills, diaphoresis, fever, malaise, weakness, unexplained weight loss. EENTM: Denies: blurred vision, double vision, visual changes, eye pain, eye drainage, eye tearing, icterus, ear discharge, ear pain, ear redness, hearing changes, nasal congestion, epistaxis, nasal pain, throat pain, throat swelling, mouth pain, tooth pain. Cardiovascular: Reports: orthopena, peripheral edema. Denies: chest pain, edema, palpitations, syncope. Respiratory: Reports: orthopnea & BURCH-> better post abd tap. Denies: cough, hemoptysis, sputum production, stridor, wheezing. GI: Reports: bloating-> better post abd tap. Denies: abdominal pain, constipation, diarrhea, distention, bowel incontinence, melena, nausea, bloody stool, changes in stool, vomiting, steatorrhea. Genitourinary: Denies: discharge, dysuria, frequency, hematuria, hesitation, nocturia, pain, urgency. Musculoskeletal: Denies: back pain, gout, joint pain, joint swelling, muscle pain, muscle stiffness, neck pain. Skin: Denies: cysts, change in skin color, change in hair/nails, dryness, erythema, jaundice, lesions, lymphangitis, lumps, moles, rash. Neurological/Psychological: Denies: anxiety, ataxia, cognitive dysfunction, confusion, depressed, dementia, emotional problems, headache, numbness, paresthesia, pre-existing deficit, petit mal seizures, tingling, tremors, tonic-clonic seizures, unable to move lower ext , unable to move upper ext, weakness. Hematologic/Endocrine: Denies: bruising, bleeding, polyuria, polydipsia. Immunologic/Allergic: Denies: splenectomy, HIV/AIDS, lymphadenopathy. All Other Systems: Reviewed and Negative Objective Vital Signs and I&Os Vital Signs Date Time Temp Pulse Resp B/P B/P Pulse O2 O2 Flow FiO2 Mean Ox Delivery Rate 09/21 1600 98.3 112 20 136/100 94 Room Air 09/21 1345 98.3 108 20 150/98 92 Room Air 09/21 0738 115 164/92 09/21 0737 102 164/92 09/21 0737 115 164/92 09/21 0737 115 164/92 09/21 0640 98.1 102 22 164/92 96 Room Air 09/21 0000 Room Air 09/20 2207 98.0 105 23 166/100 86 09/20 2017 124 166/110 Intake & Output 09/21 1600 09/21 0400 09/20 1600 09/20 0400 09/19 0400 Intake Total 1020 240 964 230 9843 0 Output Total 5200 1300 0480 551 3058 1500 Balance -4180 -1060 -1025 -750 -1635 -1500 Intake, Oral 1020 240 224 747 2255 0 Number 1 1 2 Bowel Movements Output, Other 2700 Output, Urine 2500 1300 4526 908 1751 1500 Patient 270 lb 302 lb 298 lb 298 lb Weight Weight Bed scale Bed scale Measurement Method Physical Exam: Well-developed, well-nourished, obese male, in no apparent distress. Sclera borderline icteric. Conjunctiva pink. Oropharynx clear. No oral thrush.No aphthous ulcers. There is no adenopathy, thyromegaly, or JVD. No peripheral stigmata of inflammatory bowel disease on exam. No spiders on the anterior chest wall. No gynecomastia. No CVA tenderness. No spine tenderness. Lungs: clear to A &P, except for a few bibasilar crackles, & slight decreased BS at the right base. No wheezing or rhonchi. Heart exam: irregularly irregular rate rhythm, S1 and S2, with a soft I/ systolic murmur. Abdominal exam: normal bowel sounds, soft belly, obese, doughy abdominal wall with anasarca, nontender, without guarding or rebound. ? Tiny reducible umbilical hernia. Otherwise, no mass. Liver approximately 18 cm by percussion. No splenomegaly. Negative Lopez sign. Mild fluid shift. *Stomal bag on abdominal wall, post abdominal tap. No pulsatile mass. Digital rectal exam: deferred by patient. Scrotal edema. Testicular exam: API. Extremities without cyanosis or clubbing. < 2+ pitting edema of LE B/L, with mild erythema, but no overt cellulitis. No palpable cords. Multiple tattoos. No rash. No arthropathy. No palmar erythema. No Dupuytren's contractures. Distal pulses 2+ bilaterally. DTRs 2+ bilaterally. Alert & oriented x 3. Right handed. Motor 5/5 B/L. No tremor. No asterixis. Current Medications: Current Medications Sig/Tomi Start time Last Medication Dose Route Stop Time Status Admin Acetaminophen 650 MG Q6P PRN 09/18 1800 AC PO Albumin Human 25 GM ONCE ONE 09/21 1500 DC 09/21 IV 09/21 1501 1555 Amlodipine Besylate 10 MG DAILY 09/20 0915 AC 09/21 PO 0738 Apixaban 2.5 MG BID 09/22 0900 AC PO Benzonatate 100 MG TID 09/19 2113 AC PO Diltiazem HCl 60 MG BID 09/18 1800 AC 09/21 PO 0737 Furosemide 60 MG 7:30 AM, & 4:30 PM 09/22 0730 AC IV Furosemide 40 MG 7:30 AM, & 4:30 PM 09/19 1630 DC 09/21 IV 1554 Lidocaine 1 ML .STK-MED ONE 09/21 1540 DC ID 09/21 1541 Losartan Potassium 25 MG DAILY 09/20 1508 AC 09/21 PO 0737 Metoprolol Tartrate 50 MG BID 09/18 1800 AC 09/21 PO 0737 Spironolactone 50 MG DAILY 09/21 0946 AC 09/21 PO 1104 Results Pertinent Lab Results: Laboratory Tests 09/21 09/21 09/21 1445 1445 0955 Chemistry [id number] Pending Hematology Lymphocytes (%) 54 [facility] Test (%) Immunology CHARLOTTE Titer Pending Anti-Nuclear Antibody Pending Other Body Source Fluid WBC (0 - 5 /CUMM) 1675 H Fld Total RBCs Counted (0 /CUMM) 2500 H Fluid Glucose (mg/dL) 116 Fluid Total Protein (g/dL) 5.4 Fluid Albumin (g/dL) 2.7 Fluid LDH (U/L) 320 09/21 09/21 09/21 0955 0934 0802 Chemistry Sodium (137 - 145 mmol/L) 138 Potassium (3.5 - 5.1 mmol/L) 3.6 Chloride (98 - 107 mmol/L) 93 L Carbon Dioxide (22 - 30 mmol/L) 37 H Anion Gap (5 - 16) 9 BUN (9 - 20 mg/dL) 18 Creatinine (0.7 - 1.2 mg/dL) 1.0 Estimated GFR (>60 ml/min) > 60 BUN/Creatinine Ratio (7 - 25 %) 18.0 Iron (49 - 181 ug/dL) 73 Cancelled TIBC (261 - 462 ug/dL) 454 Cancelled Ferritin (17.9 - 464 ng/mL) 79.1 Cancelled Total Bilirubin (0.2 - 1.3 mg/dL) 2.2 H Cancelled Direct Bilirubin (< 0.4 mg/dL) 0.4 Cancelled Albumin (3.5 - 5.0 g/dL) 3.8 Hematology CBC w Diff NO MAN DIFF REQ WBC (4.8 - 10.8 /CUMM) 6.8 RBC (4.70 - 6.10 /CUMM) 4.27 L Hgb (14.0 - 18.0 G/DL) 13.5 L Hct (42 - 52 %) 40.6 L MCV (80.0 - 94.0 FL) 95.0 H MCH (27.0 - 31.0 PG) 31.7 H MCHC (33.0 - 37.0 G/DL) 33.4 RDW (11.5 - 14.5 %) 14.2 Plt Count (130 - 400 /CUMM) 235 MPV (7.4 - 10.4 FL) 9.1 Gran % (42.2 - 75.2 %) 62.8 Lymphocytes % (20.5 - 51.1 %) 22.6 Monocytes % (1.7 - 9.3 %) 10.8 H Eosinophils % (0 - 5 %) 3.2 Basophils % (0.0 - 2.0 %) 0.6 Absolute Granulocytes (1.4 - 6.5 /CUMM) 4.3 Absolute Lymphocytes (1.2 - 3.4 /CUMM) 1.5 Absolute Monocytes (0.10 - 0.60 /CUMM) 0.7 H Absolute Eosinophils (0.0 - 0.7 /CUMM) 0.2 Absolute Basophils (0.0 - 0.2 /CUMM) 0 Immunology Anti-Mitochondrial Ab Pending Anti-Smooth Muscle Ab Pending Livr/Kid Microsome 1 Ab Pending Serology Hepatitis A IgM Ab (NONREACTIVE) Pending Hep Bs Antigen (NONREACTIVE) Pending Hep B Core IgM Ab Conf (NONREACTIVE) Pending Hepatitis C Antibody (NONREACTIVE) Pending HIV 1&2 Ab Western Blot (NONREACTIVE) NONREACTIVE Cancelled 09/21 09/21 09/20 09/19 0620 0600 0634 0625 Chemistry Sodium (137 - 145 mmol/L) 139 140 Potassium (3.5 - 5.1 mmol/L) 3.5 3.5 Chloride (98 - 107 mmol/L) 94 L 97 L Carbon Dioxide (22 - 30 mmol/L) 39 H 33 H Anion Gap (5 - 16) 6 11 BUN (9 - 20 mg/dL) 16 14 Creatinine (0.7 - 1.2 mg/dL) 1.0 0.9 Estimated GFR (>60 ml/min) > 60 > 60 BUN/Creatinine Ratio (7 - 25 %) 16.0 15.6 Albumin (3.5 - 5.0 g/dL) 3.7 Coagulation PT (9.4 - 12.5 SEC) 17.7 H 18.7 H INR (0.90 - 1.17) 1.62 H 1.71 H APTT (25 - 37 SEC) 29 Other Body Source Fluid WBC Cancelled Fld Total RBCs Counted Cancelled Imaging/Other Studies: 09/09/17: CT ANGIOGRAM CHEST WITHOUT AND WITH CONTRAST (CT PULMONARY ANGIOGRAM FOR PE)/CT ABDOMEN AND PELVIS WITH IV CONTRAST- 1. No evidence of central or segmental pulmonary emboli. 2. Cardiomegaly. Nonspecific subcm mediastinal nodes. 3. Moderate right hemidiaphragm elevation. There is bibasilar atelectasis, greater on the right likely due to compression. No consolidations are seen that raise suspicion for pneumonia. 4. Relative hypertrophy of the left hepatic lobe. Small abdominal ascites mostly centered around the liver and spleen. The constellation of these findings is suggestive of underlying liver cirrhosis. Clinical correlation requested. Normal GB. 5. Lymphadenopathy within the abdomen, etiology unknown (1.3 x 1.8 portacaval node & retroperitoneal 1.5 x 1.9 cm left para-aortic node). *VTE: Negative 09/09/17: XRY-PORTABLE CHEST XRAY- Suspected small to moderate right-sided pleural effusion. Cardiac silhouette enlarged. 09/09/17: CT HEAD WITHOUT CONTRAST/CT OF THE CERVICAL SPINE WITHOUT CONTRAST- 1. Technically limited study. Repeat evaluation when patient is able to hold still for better quality of images may be considered if clinically appropriate. 2. No gross CT evidence of acute intracranial hemorrhage or cervical spine fracture present. 09/09/17: ECHOCARDIOGRAM- CONCLUSIONS Normal size left ventricle. Moderate concentric left ventricular hypertrophy. Borderline left ventricular systolic function. Left ventricular ejection fraction is estimated at 50%. Mild right atrial dilatation. Mild left atrial dilatation. Mild mitral regurgitation. Mild to moderate tricuspid regurgitation. -Stanley Louis M.D. 09/10/17: US-LIMITED RUQ ABDOMEN Increased, heterogeneous echotexture throughout the liver raises possibility of underlying hepatic steatosis versus hepatocellular disease. No focal hepatic lesions. There is a small volume ascites throughout the abdomen. Nonspecific fluid within the thickened gallbladder wall, this may related to ascites. Negative sono Lopez sign. No dilated IHD/EHD with CBD 2 mm. 09/11/17: [id number] VIEW- Nonobstructive bowel gas pattern. 09/18/17: EKG- afib @ 98, nl axis, multiform PVC, QS V1-V3, borderline prolonged QT interval, ? lat ischemia. 09/18/17: XR CHEST, 2 VIEWS- Cardiomegaly with mild pulmonary venous congestion. Persistent linear platelike atelectasis in the right lung base. No consolidation. 09/20/17: *US-ABD/PELV ORGAN DOPPLER; US-COMPLETE ABDOMEN- 1. Enlarged nodular cirrhotic liver is seen with evidence of portal venous hypertension given the presence of splenomegaly and ascites. With color Doppler imaging, the main, right and left portal veins are patent with normal hepatopetal flow demonstrated. On recent CT scan, there was recanalization of the umbilical vein seen, which cannot be visualized on this exam due to technical factors. Overall hepatic Doppler assessment is limited as discussed above. 2. The splenic vein is patent but directionality of flow cannot be assessed on this exam. Enlarged 15.4 cm spleen. 3. Evaluation of the pancreas is essentially nondiagnostic due to obscuration by shadowing bowel gas. 4. Gallbladder wall thickening is seen, likely a reflection of the intra- abdominal ascites. There is a small amount of ascites around the liver and the spleen. *Sono/limited doppler-cirrhotic liver, limited views show patent HV, etc. I contacted Dr. De La O, of [facility], 09/21/17 at 7:45 p.m. to see if the small amount of ascites near the liver & spleen was tappable. *Apparently, 2.7L ascitic fluid was tapped by IR after the sono on 09/21/17, but the report was not yet dictated.
[2017-09-21 22:02] VITALS: BP 142/100
--- NOTE | 2017-09-22 06:41 | PN- Housestaff ---
BrownHugoherrera 09/22/17 0641: Subjective Follow-up For: Abdominal ascites Subjective: Heart rate overnight remained between 76-128 without any pauses. Patient has no complaint of today states he is feeling much better. Denies fever, chills, shortness of breath, chest pain. Review of Systems Constitutional: Reports: see HPI. Objective Last 24 Hrs of Vital Signs/I&O Vital Signs Date Time Temp Pulse Resp B/P B/P Pulse O2 O2 Flow FiO2 Mean Ox Delivery Rate 09/22 0753 Room Air 09/22 0743 98.2 108 20 150/98 94 Room Air 09/22 0742 120 140/100 09/22 0741 120 140/100 09/22 0741 120 140/100 09/22 0740 124 142/100 09/21 2202 98.9 124 20 142/100 94 Room Air 09/21 2142 126 142/100 09/21 2142 126 142/100 09/21 1600 98.3 112 20 136/100 94 Room Air 09/21 1345 98.3 108 20 150/98 92 Room Air Intake & Output 09/22 1600 09/22 0800 09/22 0000 Intake Total 220 300 Output Total 800 4425 Balance -580 -4125 Intake, IV 50 Intake, Oral 220 250 Number 2 Bowel Movements Output, Other 2825 Output, Urine 800 1600 Patient 287 lb Weight Weight Bed scale Measurement Method Physical Exam General Appearance: Alert, Oriented X3, Cooperative Skin: UROSTOMY BAG ON RIGHT ADBOMEN AT SITE OF PARACENTESIS, CLEAR-YELLOW FLUID PRESENT. NO ERYTHEMA, WARMTH OR DISCHARGE APPRECIATED Cardiovascular: Regular Rate, Normal S1, Normal S2 Lungs: Clear to Auscultation, Normal Air Movement Abdomen: Normal Bowel Sounds, No Tenderness, DISTENDED, TENSE Extremities: +2 Pitting edema Current Medications: Current Medications Sig/Tomi Start time Last Medication Dose Route Stop Time Status Admin Acetaminophen 650 MG Q6P PRN 09/18 1799 AC PO Albumin Human 25 GM ONCE ONE 09/21 1500 DC 09/21 IV 09/21 1501 1555 Amlodipine Besylate 10 MG DAILY 09/20 914 AC 09/22 PO 0742 Apixaban 2.5 MG BID 09/22 0900 AC 09/22 PO 0743 Benzonatate 100 MG TID 09/19 2112 AC PO Diltiazem HCl 60 MG BID 09/18 1800 AC 09/22 PO 0741 Furosemide 60 MG 7:30 AM, & 4:30 PM 09/22 0730 AC 09/22 IV 0743 Furosemide 40 MG 7:30 AM, & 4:30 PM 09/19 1630 DC 09/21 IV 1554 Lidocaine 1 ML .STK-MED ONE 09/21 1540 DC ID 09/21 1541 Losartan Potassium 25 MG DAILY 09/20 1508 AC 09/22 PO 0740 Metoprolol Tartrate 50 MG BID 09/18 1800 AC 09/22 PO 0741 Spironolactone 50 MG DAILY 09/21 0946 AC 09/22 PO 0741 Last 24 Hrs of Lab/Naldo Results Last 24 Hrs of Labs/Mics: Laboratory Tests 09/22/17 0626: Anion Gap 8, Estimated GFR > 60, BUN/Creatinine Ratio 20.0 09/21/17 1445: Fluid WBC 1675 H, Fld Total RBCs Counted 2500 H 09/21/17 1445: Lymphocytes 54, Misc Hematology Test , Fluid Glucose 116, Fluid Total Protein 5.4, Fluid Albumin 2.7, Fluid LDH 320 09/21/17 0955: Obnqj-[id number]-Tuonwazausm Pending, [place] Titer Pending, Anti-Nuclear Antibody Pending 09/21/17 0955: Iron 73, TIBC 454, Ferritin 79.1, Total Bilirubin 2.2 H, Direct Bilirubin 0.4, Albumin 3.8, CBC w Diff NO MAN DIFF REQ, RBC 4.27 L, MCV 95.0 H, MCH 31.7 H, MCHC 33.4, RDW 14.2, MPV 9.1, Gran % 62.8, Lymphocytes % 22.6, Monocytes % 10.8 H, Eosinophils % 3.2, Basophils % 0.6, Absolute Granulocytes 4.3, Absolute Lymphocytes 1.5, Absolute Monocytes 0.7 H, Absolute Eosinophils 0.2, Absolute Basophils 0, Anti-Mitochondrial Ab Pending, Anti-Smooth Muscle Ab Pending, Livr/ Kid Microsome 1 Ab Pending, Hepatitis A IgM Ab Pending, Hep Bs Antigen Pending, Hep B Core IgM Ab Conf Pending, Hepatitis C Antibody Pending, HIV 1&2 Ab Western Blot NONREACTIVE Microbiology 09/21 1444 BODY FLUID: Body Fluid Culture - RES 09/21 1444 BODY FLUID: Gram Stain - RES Assessment/Plan Assessment: Mr. Mcrae is a 47-year-old gentleman past medical history of hypertension and significant alcohol abuse, cutting back two years ago, who was discharged from [facility] a week ago after being treated for new onset atrial fibrillation with RVR, and hypertensive urgency presenting again with abdominal distention. CT scan showed on previous admission showed findings suggestive of underlying liver cirrhosis. Viral hepatitis panel was negative. US abdomen showed increased ecogenecity, underlying hepatic steatosis versus hepatocellular disease. Ascites are likely due primarly to cirrhotic process, but previous echo showed EF of 50% and borderline LV systolic function. CHF or diastolic dysfunction possible, but unlikely to be primary etiology of rapid, recurrent ascites. Problem: 1. Ascites, with hx of alcohol abuse in the past. 2. Hypertensive Urgency 3. Atrial fibrillation 4. Stasis Dermatitis 5. Hypochloremia 6. Hypokalemia #Abdominal ascites: Patient has extensive history of alcoholism, ascites is most likely due to liver cirrhosis. Hepatitis panel nonreactive in 2012. Iron panel is normal.Total bilirubin elevated 2.2, with normal direct bilirubin. given 25 g of albumin. -Saag calculated to 1.1, the patient had a high protein levels from ascitic fluid of 5.8. The exact etiology of ascites is difficult to determine at this time, due to his history and findings of cirrhosis it seemed like liver pathology would be the cause, but with high protein levels cannot rule out cardio logic cause of ascites. Patient does not have stigmata of liver failure, normal platelet count, but does have elevated INR. -Patient will be given a referral to liver clinic at [place], for transjugular liver biopsy. Discussed with Dr. Molina and agreed to by the patient recommended by cardiology with cardiology. Continue to monitor renal function, currently renal function is normal -Follow-up HIV, [place], anti-smooth muscle antibody, anti-LK M antibody, AMA, A1AT -Continue Aldactone 50mg (Monitor K+ level, K-sparing diuretic and was started on ARB 09/20/17) -Patient has been leaking fluid from site of paracentesis, currently has urostomy bag placed but due to increased risk of infection and increased risk of SBP will speak with IR to see if we can use Dermabond or some other adhesive. #Hypertensive urgency: Patient is asymptomatic, normal CMP. Systolic blood pressure has been ranging between 150-170s for the past 24 hours -Cardiology is following patient #Atrial fibrillation -Continue metoprolol 50 mg twice daily -Continue diltiazem 60 mg twice daily -Last night patient had episode of heart rate going to 35 with a 3.6-second pause, will discuss with cardiology about discontinuing diltiazem due to history of pauses. #Stasis dermatitis: Warm, erythematous rash present on bilateral shins. Patient has been a afebrile, and duration of rash (1 month) seems less likely to be infectious in nature. #Hypochloremia, most likely due to diuretic use #Hypokalemia: Most likely due to diuretic use #Gilbert syndrome. Patient has elevated total bilirubin at 2.2, with normal direct bilirubin 0.4 -Patient had minimal scleral icterus on presentation, has resolved. We will continue to monitor patient Diet: Heart healthy CODE STATUS: full code DVT prophylaxis: Alps Problem List: 1. Ascites Pain Ratin Pain Location: n/a Pain Goal: Remain pain free Pain Plan: tylenol Tomorrow's Labs & Rationales: Lizette Forrest MD 09/22/17 0937: Attending MD Review Statement Attending Statement Attending MD Statement: examined this patient, discuss w/resident/PA/STEEL PLACER, agreed w/resident/PA/STEEL PLACER, reviewed EMR data (avail), discussed with nursing, discussed with case mgmt, reviewed images Attending Assessment/Plan: Patient had 2.7 L taken out with a therapeutic tap yesterday. His numbers are confusing in that his SAAG is greater than 1.1 but the total protein in the ascitic fluid is fairly high suggesting that this is not underlying liver cirrhosis both more likely cardiac in nature. I did speak to Dr. Molina at length and the patient will need close outpatient follow-up with the likely transjugular liver biopsy at [facility] as an outpatient. Patient is agreeable to this plan. Given the elevated INR we restarted the Eliquis but at half dose per cardiology. He is oozing at the site of the paracentesis and will need to talk to IR about some kind of Dermabond. I anticipate that we will likely discharge him in a.m. with close outpatient follow-up.
[2017-09-22 07:43] VITALS: BP 150/98
--- NOTE | 2017-09-22 07:52 | ULTRASOUND REPORT ---
EXAMINATION: PARA/PERITONEOCENTESIS CLINICAL INFORMATION: Abdominal distention. COMPARISON: Abdominal ultrasound 09/20/2017 TECHNIQUE: Informed consent was obtained from the patient prior to the procedure. During this process, the procedure and potential alternatives were explained, along with the intended outcome and benefits. The risks of the procedure, as well as the risk of not doing the procedure, were discussed. The patient was given the opportunity to ask questions regarding the procedure and appeared competent to make medical decisions. A signed consent form which documents this discussion was placed in the medical record. A timeout procedure was performed. Ultrasound evaluation of the abdomen for ascites was performed. Hard copy images were stored in our PACS system. A large amount of ascites is noted in the right lower quadrant. Using standard interventional and sterile techniques, under direct US guidance, a 6-Yoruba pigtail catheter was introduced into the right lower quadrant using a standard safety needle technique. Approximately 2.7 L of serous fluid was removed into the standard Vacutainer bottles. The catheter was then removed. Good hemostasis was achieved. Sample of the specimen was sent for lab analysis. The patient demonstrated immediate symptomatic relief. The patient tolerated the procedure well. A sterile dressing was placed. The patient was discharged in good condition. COMPLICATIONS: None. IMPRESSION: 1. Successful ultrasound-guided paracentesis of 2.7 L of fluid.
[2017-09-22 14:57] VITALS: BP 128/94
--- NOTE | 2017-09-22 19:52 | PN- Cardiology ---
Subjective Subjective: * Patient feels much improved. * atrial fibrillation with controlled heart rate. No significant pauses. * potassium 3.4 Objective Vital Signs and I&Os Vital Signs Date Time Temp Pulse Resp B/P B/P Pulse O2 O2 Flow FiO2 Mean Ox Delivery Rate 09/22 1457 98.4 118 22 128/94 95 Room Air 09/22 0753 Room Air 09/22 0743 98.2 108 20 150/98 94 Room Air 09/22 0742 120 140/100 09/22 0741 120 140/100 09/22 0741 120 140/100 09/22 0740 124 142/100 09/21 2202 98.9 124 20 142/100 94 Room Air 09/21 2142 126 142/100 09/21 2142 126 142/100 Intake & Output 09/22 1600 09/22 0800 09/22 0000 09/21 1600 09/21 0800 09/21 0000 Intake Total 700 220 300 800 220 240 Output Total 2143 966 5373 4800 400 1300 Balance -900 -580 -4125 -4000 -180 -1060 Intake, IV 50 Intake, Oral 700 220 250 800 220 240 Number 2 1 Bowel Movements Output, Other 2825 2700 Output, Urine 2883 369 9454 2100 400 1300 Patient 287 lb 270 lb Weight Weight Bed scale Measurement Method Physical Exam: General: WD/obese male in NAD; alert and oriented x 3 HEENT: NC/AT, PERRL, EOMI Neck: no JVD, no carotid bruit Heart: irregularly irregular w/o murmur Lungs: clear bilaterally Abdomen: soft, distended, firm, NT, +ve bowel sounds Extremities: 2+ edema bilaterally with venous stasis changes Assessment/Plan Assessment/Plan * This patient has abdominal ascites without any clear evidence of JVD or increased RV pressures. I suspect he has a cirrhotic liver from alcohol abuse although laboratory findings are not definitely pathonomonic of this. I have a low suspicion of decompensated CHF. In review of his echo I do not think he has restrictive or constrictive disease. This patient should restart Eliquis for stroke prophylaxis. Will use a lower dose of 2.5mg BID since this patient appears to be auto-anticoagulated; likely from his liver disease. * Continue Metoprolol and Cardizem for rate control. Monitor for significant pauses. In the setting of atrial fibrillation this is 5 seconds. * Continue spironolactone. Change Lasix to 60mg PO daily. Replete potassium. Continue telemetry? Yes
--- NOTE | 2017-09-22 21:16 | PN- Gastroenterology ---
Assessment/Plan GI Assessment/Recommendations: 47 y/o male, HTN, LVH, obese, no PMD, not compliant with followup, recently admitted to [facility] 09/09/17-09/13/17, presenting to the ER then with abdominal & scrotal swelling x 5 days & progressive LE edema x 2 weeks, found to be in afib with RVR. He was admitted to telemetry & txd with IV Cardizem & heparin drips. He was diuresed with Lasix. Heparin was switched to Eliquis. 09/09/17: ECHO- LVEF 50% & LVH (albeit with mod TR, no pulm HTN, nl RV) & : RUQ sono- hepatic steatosis, possibly with hepatocellular dysfunction, without HCC or dilated ducts. No gallstones, but nonspecific fluid within a thickened 7 mm GB wall, probably due to a small amount of ascites then. His abdomen was never tapped. His edema improved somewhat prior to D/C. *He was sent home on Eliquis 5 mg po BID, Toprol 50 mg po BID, Cardizem 60 mg po BID, & Lasix 40 mg daily. *Past hx EtOH abuse (was in [facility] for EtOH detox unit 12/2011, computer notes stating withdrawal seizures- *denied by patient). He reportedly drank several pints vodka daily & abused EtOH x 30+ years. He switched to wine in 2016, but didn't report this as EtOH, as he thought "wine is good for your heart". He seemed to be minimizing his wine intake. He was not taking any NSAIDS. He had multiple tattoos. He denied any IVDA, body piercings or blood transfusions. He was uncertain of his viral hepatitis status. He did not think he was ever immunized against either Hep A or B. He denied any jaundice, dark urine, light stools, confusion, PSE,or pruritus. He denied any fevers, chills, sx UTI , or URI. He had gained weight in conjunction with the peripheral edema, exact amount unknown. His appetite was good.He denied any FHx of inherited liver disease. There was a +FHx colon Ca (F- early onset 48, PGF- late onset). There is no FHx additional GI disease. His GB is intact. He is post appendectomy. He denied any rashes or arthralgias. He presented back to the [facility] ER 09/18/17 at 1:09 p.m., with HTN urgency- BP 155/105, P 90, R 26, T 97.9, O2 sat RA 91%. BP was then 188/100. He noted worsening SOB & fluid retention in his abdoman & legs. He denied any CP, but had BURCH. He was given IV Lasix in the ER & *refused a repeat CT. The patient noted mild periumbilical pain, perhaps related to an umbilical hernia. He denied any nausea, vomiting, GERD, hematemesis, odynophagia, dysphagia, early satiety, melena, rectal bleeding, diarrhea, constipation, obstipation, tenesmus, or change in stool caliber. The patient denied ever having had an abdominal tap. He denied ever having had a previous EGD. He stated he had his baseline & only colonoscopy at [facility] at age 34, which was "normal". 12/15/11: Hep A Ab, Hep Bs Ag, Hep B core Ab, & Hep C Ab- all neg. 09/09/17: U/A- clear, yellow, 1.015, 6.0, 3-5 WBC, 1-3 hyaline casts, 30+ prot; neg nitrite, neg esterase. 09/09/17: Utox- neg. 09/18/17: 1450- Admission- WBC 6.7, H/H 13.2/40, MCV 95.5, RDW 14.3, PLT 221, PT 22, INR 2.00, PTT 31, glu 128, BUN/Cr 14/0.9, GFR > 60, Na 139, K 3.4, HCO3 38, AG 6, Ca 9.0, alb 3.8, glob 3.4, TBil 1.9 (*old labs with fractionation seem to be most c/w Gilbert's), alk phos 82, AST 45, ALT 38, troponin 0.04, elevated BNP 1070. 09/19/17: PT 18.7, INR 1.71, PTT 29, BUN/Cr 14/0.9, GFR > 60, Na 140, K 3.5, HCO3 33, AG 11 09/20/17: BUN/Cr 16/1.0, GFR > 60, Na 139, K 3.5, HCO3 39, AG 6 09/18/17: EKG- afib @ 98, nl axis, multiform PVC, QS V1-V3, borderline prolonged QT interval, ? lat ischemia. 09/18/17: XR CHEST, 2 VIEWS- Cardiomegaly with mild pulmonary venous congestion. Persistent linear platelike atelectasis in the right lung base. No consolidation. *Although I would have expected more of a fluid shift on exam, I am concerned that the patient may have a component of underlying cirrhosis accounting for his peripheral edema & abdominal girth. Having stated that, his initial CT of , when he was admitted for new onset afib with RVR, showed only small amounts of perihepatic & perisplenic ascites. Furthermore, although there is a component of coagulopathy that preceeded A/C tx, the patient's albumin:globulin ratio is normal & there is no thrombocytopenia, which go against cirrhosis. The patient has normal LVEF on echo & there does not appear to be right-sided CHF to account for the peripheral edema & abdominal girth. The past hx EtOH abuse is noted. Additionally, the patient is obese & also could have had fatty liver progressing to steatohepatitis & cirrhosis. 09/20/17: US-ABD/PELV ORGAN DOPPLER; US-COMPLETE ABDOMEN- 1. Enlarged nodular cirrhotic liver is seen with evidence of portal venous hypertension given the presence of splenomegaly and ascites. With color Doppler imaging, the main, right and left portal veins are patent with normal hepatopetal flow demonstrated. On recent CT scan, there was recanalization of the umbilical vein seen, which cannot be visualized on this exam due to technical factors. Overall hepatic Doppler assessment is limited as discussed above. 2. The splenic vein is patent but directionality of flow cannot be assessed on this exam. Enlarged 15.4 cm spleen. 3. Evaluation of the pancreas is essentially nondiagnostic due to obscuration by shadowing bowel gas. 4. Gallbladder wall thickening is seen, likely a reflection of the intra- abdominal ascites. There is a small amount of ascites around the liver and the spleen. *Sono/limited doppler-cirrhotic liver, limited views show patent HV, etc. I contacted Dr. De La O, of [facility], 09/21/17 at 7:45 p.m. to see if the small amount of ascites near the liver & spleen was tappable. *Apparently, 2.7L ascitic fluid was tapped by IR after the sono on 09/21/17, but the report was not yet dictated. *He got 25g SPA with the tap. He had some leakage after the tap, controlled with a stomal bag. 09/21/17: *Ascitic fluid- 2500 RBC, 1675 WBC (54L/46Mono-Meso)- *no polys, therefore, no SBP. *No serum albumin was sent 09/21/17 to calculate SAAG! *I called the lab to add on a serum albumin to be able to calculate a SAAG. BF albumin 2.7. Interestingly , *BF protein elevated 5.4, going against cirrhotic ascites from a primary hepatic source (*expect low BF protein with this). 09/21/17: *Ascitic cytology- pending- rule out Ca (nonspecific nodes on prior imaging studies). 09/21/17: *Ascitic C&S- negative x 1 day (gram stain- rare WBC, w/o orgs) 09/21/17: *serum albumin 3.8, so *SAAG- *borderline elevated 1.1 09/21/17: WBC 6.8, H/H 13.5/40.6, MCV 95, RDW 14.2, PLT 235, PT 17.7, INR 1.62 09/21/17: BUN/Cr 18/1.0, GFR > 60, Na 138, K 3.6, HCO3 37, AG 9, TBil 2.2, DBil 0.4 (*c/w Gilbert's), alb 3.8 09/21/17: *Fe 73, TIBC 454, *nl Fe sat 16.1%, *nl ferritin 79.1 09/21/17: *HIV- neg 09/21/17: *CHARLOTTE- neg 1:40 09/21/17: *anti-LKM Ab, anti-smooth muscle Ab, AMA, A1AT- *pending. A hepatitis panel was not sent 09/21/17, despite my request, & I called the lab to add this, as well. 09/21/17: *Hep A Ab, Hep Bs Ag, Hep B core Ab, Hep C Ab- *all negative. *As of 09/21/17, the patient was found to have an episode of bradycardia at 0332 , with HR 35 & 3.6 sec pause. He was asx with this. He felt better after paracentesis later in the day. The patient remained in afib & was felt to have non-significant pauses, per cardiology (Toprol & Cardizem continued). Lower dose Eliquis 2.5 mg BID was resumed, as the patient was probably somewhat auto A/C, from his liver disease. *Aldactone 50 mg daily was rxd, along with increased dose of Lasix 60 mg daily. The patient was feeling better after the 09/21/17: abdominal tap. He was less short of breath. He had no chest pain or palpitations. He remained with peripheral edema, but his abdominal girth was somewhat decreased. He was ambulating. 09/21/17: US-PARACENTESIS- IMPRESSION: 1. Successful ultrasound-guided paracentesis of 2.7 L of serous fluid. 09/22/17: BUN/Cr 20/1.0, GFR > 60, Na 138, K 3.4,HCO3 36, AG 8 *As of 09/22/17, the patient remained in afib, still with a rapid VR. Most recently, BP 150/86, P 120, R 22. He remained afebrile, with O2 sat RA 95%. He required a stomal bag in the RLQ, for ascitic leakage, post abdominal tap . which stabilized. He now had a dressing over this, without any leakage. He was ambulating uneventfully. He denied any CP or SOB. His abdominal distention was slightly improved. His peripheral edema persisted. He remained on diuretic therapy, currently Aldactone 50 mg daily & Lasix 60 mg daily. He was mildly hypokalemic. He remained on low dose Eliquis 2.5 mg po BID, Losartan 25 mg daily , Amlodipine 10 mg daily, Toprol 50 mg BID, and Cardizem 60 mg BID. Cardiology & medicine notes were reviewed. Cardiology felt that the patient's ascites was not cardiac related. The recent echocardiogram was reviewed by Dr. Ge, and there were no elevated right heart pressures, nor any constrictive pericarditis. *Having stated that, the protein content (5.4g) in the ascitic fluid was too high to consider purely cirrhosis alone. SAAG 1.1 was borderline elevated. *The patient seemed a little reluctant to undergo outpatient referral to the [facility] unit to consider transjugular biopsy and HVWPG. I also advised an outpt EGD (r/o varices, especially in a patient on A/C tx & liver disease. Additionally, he was also overdue for a f/u colonoscopy, in view of the +FHx colon Ca. He denied any jaundice, abdominal pain, fevers, chills, GI bleeding, or melena. *SUGGEST: 2g Na+ diet. *Follow-up 09/21/17: ascitic C&S (in BC bottles, to increase yield; negative so far) & *await ascitic cytology. In view of the mixed findings on the ascitic fluid, the patient may ultimately need a transjugular liver biopsy with HVWPG (off Eliquis then). *The pt did not appear to be interested in this at present. *Continue Lasix 60 mg daily. *If okay with cardiology, would increase Aldactone from 50 mg to 100 mg daily (which should help his hypoK+), as his GFR & lytes tolerate. Strict I/O's. *Await 09/21/17: anti-smooth muscle Ab, anti-LKM Ab, AMA, A1AT. *Consider checking Hep Bs Ab. Abstinence from EtOH was stressed to the patient. He seemed to be downplaying his current wine intake & attimes, had poor insight.*Advise serial AFP Q 6 mos & RUQ sono Q 6 mos for hepatoma surveillance. Avoid NSAIDS, limit Tylenol to < 2g daily, get an annual flu shot, & a baseline Pneumovax. Additionally, he should be vaccinated against both Hep A & B, depending on his serologic status. As he is probably cirrhotic ( tap showed mixed picture- ? cardiac > liver component), one has to weigh the risk:benefit ratio of senior living A/C tx. *He is on low-dose Eliquis 2.5 mg po BID , as he is partially auto A/C. *He is overdue for a followup colonoscopy, regarding the +FHx early onset colon Ca (F- onset 48/PGF- late onset), as apparently, his baseline & only colonoscopy at [facility] at age 34 was "normal". * Furthermore, as there is some component of cirrhosis, he would need an EGD to exclude varices. If he did have varices, I would advise swiching Meoprolol to a non-selective beta anthony, such as Inderal or Nadolol. *Followup with medical team, for the nonspecific adenopathy noted on the imagimg studies of last admission (*again, await 09/21/17: ascitic cytology). The case was previously discussed with Dr. Ge & Dr. Ethan Lyons. *The remainder of the above GI workup can be done as an outpt, as the pt allows. The patient has my office number. *Further inpt GI follow-up as needed. As the inpt GI service is changing tomorrow, please call our office if any further inpt GI input is needed. Problem List: 1. Ascites 2. Edema 3. Scrotum swelling 4. Gilbert's disease 5. Alcohol abuse 6. Family history of malignant neoplasm of colon in first degree relative diagnosed when younger than 60 years of age 7. Atrial fibrillation 8. Fluid overload Subjective Subjective: 09/21/17: US-PARACENTESIS- IMPRESSION: 1. Successful ultrasound-guided paracentesis of 2.7 L of serous fluid. 09/22/17: BUN/Cr 20/1.0, GFR > 60, Na 138, K 3.4,HCO3 36, AG 8 *As of 09/22/17, the patient remained in afib, still with a rapid VR. Most recently, BP 150/86, P 120, R 22. He remained afebrile, with O2 sat RA 95%. He required a stomal bag in the RLQ, for ascitic leakage, post abdominal tap . which stabilized. He now had a dressing over this, without any leakage. He was ambulating uneventfully. He denied any CP or SOB. His abdominal distention was slightly improved. His peripheral edema persisted. He remained on diuretic therapy, currently Aldactone 50 mg daily & Lasix 60 mg daily. He was mildly hypokalemic. He remained on low dose Eliquis 2.5 mg po BID, Losartan 25 mg daily , Amlodipine 10 mg daily, Toprol 50 mg BID, and Cardizem 60 mg BID. Cardiology & medicine notes were reviewed. Cardiology felt that the patient's ascites was not cardiac related. The recent echocardiogram was reviewed by Dr. Ge, and there were no elevated right heart pressures, nor any constrictive pericarditis. *Having stated that, the protein content (5.4g) in the ascitic fluid was too high to consider purely cirrhosis alone. SAAG 1.1 was borderline elevated. *The patient seemed a little reluctant to undergo outpatient referral to the [facility] unit to consider transjugular biopsy and HVWPG. I also advised an outpt EGD (r/o varices, especially in a patient on A/C tx & liver disease. Additionally, he was also overdue for a f/u colonoscopy, in view of the +FHx colon Ca. He denied any jaundice, abdominal pain, fevers, chills, GI bleeding, or melena. Objective Vital Signs and I&Os Vital Signs Date Time Temp Pulse Resp B/P B/P Pulse O2 O2 Flow FiO2 Mean Ox Delivery Rate 09/22 2050 120 150/86 09/22 2049 120 150/86 09/22 1457 98.4 118 22 128/94 95 Room Air 09/22 0753 Room Air 09/22 0743 98.2 108 20 150/98 94 Room Air 09/22 0742 120 140/100 09/22 0741 120 140/100 09/22 0741 120 140/100 09/22 0740 124 142/100 Intake & Output 09/22 1600 09/22 0400 09/21 1600 09/21 0400 09/20 1600 09/20 0400 Intake Total 725 822 7582 240 800 150 Output Total 2400 4425 5200 1300 1825 900 Balance -1480 -4125 -4180 -1060 -1025 -750 Intake, IV 50 Intake, Oral 347 323 5464 240 800 150 Number 2 1 1 Bowel Movements Output, Other 2825 2700 Output, Urine 2400 1600 2500 1300 1825 900 Patient 287 lb 270 lb 302 lb Weight Weight Bed scale Measurement Method Physical Exam: Well-developed, well-nourished, obese male, in no apparent distress. Sclera borderline icteric. Conjunctiva pink. Oropharynx clear. No oral thrush.No aphthous ulcers. There is no adenopathy, thyromegaly, or JVD. No peripheral stigmata of inflammatory bowel disease on exam. No spiders on the anterior chest wall. No gynecomastia. No CVA tenderness. No spine tenderness. Lungs: clear to A &P, except for a few bibasilar crackles, & slight decreased BS at the right base. No wheezing or rhonchi. Heart exam: irregularly irregular rate rhythm, S1 and S2, with a soft I/ systolic murmur. Abdominal exam: normal bowel sounds, soft belly, obese, doughy abdominal wall with anasarca, nontender, without guarding or rebound. ? Tiny reducible umbilical hernia. Otherwise, no mass. Liver approximately 18 cm by percussion. No splenomegaly. Negative Lopez sign. Minimal fluid shift. *Dressing RLQ (stomal bag removed). post abdominal tap. No pulsatile mass. Digital rectal exam: deferred by patient. Scrotal edema slightly better. Testicular exam: API. Extremities without cyanosis or clubbing. < 2+ pitting edema of LE B/L, with mild erythema, but no overt cellulitis. No palpable cords. Multiple tattoos. No rash. No arthropathy. No palmar erythema. No Dupuytren's contractures. Distal pulses 2+ bilaterally. DTRs 2+ bilaterally. Alert & oriented x 3. Right handed. Motor 5/5 B/L. No tremor. No asterixis. Current Medications: Current Medications Sig/Tomi Start time Last Medication Dose Route Stop Time Status Admin Acetaminophen 650 MG Q6P PRN 09/18 1800 AC PO Amlodipine Besylate 10 MG DAILY 09/20 914 AC 09/22 PO 741 Apixaban 2.5 MG BID 09/22 09 AC 09/22 PO 2049 Benzonatate 100 MG TID 09/193 AC PO Diltiazem HCl 60 MG BID 09/18 1800 AC 09/22 PO 2050 Furosemide 60 MG DAILY 09/23 0900 AC PO Furosemide 60 MG 7:30 AM, & 4:30 PM 09/22 0730 DC 09/22 IV 0743 Losartan Potassium 25 MG DAILY 09/20 1508 AC 09/22 PO 0740 Metoprolol Tartrate 50 MG BID 09/18 1800 AC 09/22 PO 2049 Spironolactone 50 MG DAILY 09/21 0946 AC 09/22 PO 0741 Results Pertinent Lab Results: Laboratory Tests 09/22 09/21 09/21 09/21 0626 1445 1445 0955 Chemistry Sodium (137 - 145 mmol/L) 138 Potassium (3.5 - 5.1 mmol/L) 3.4 L Chloride (98 - 107 mmol/L) 94 L Carbon Dioxide (22 - 30 mmol/L) 36 H Anion Gap (5 - 16) 8 BUN (9 - 20 mg/dL) 20 Creatinine (0.7 - 1.2 mg/dL) 1.0 Estimated GFR (>60 ml/min) > 60 BUN/Creatinine Ratio (7 - 25 %) 20.0 [id number] Pending Hematology Lymphocytes (%) 54 Misc Hematology Test (%) Immunology CHARLOTTE Titer ND Anti-Nuclear Antibody (NEG,1:40) NEG 1:40 IFA ASSAY Other Body Source Fluid WBC (0 - 5 /CUMM) 1675 H Fld Total RBCs Counted (0 /CUMM) 2500 H Fluid Glucose (mg/dL) 116 Fluid Total Protein (g/dL) 5.4 Fluid Albumin (g/dL) 2.7 Fluid LDH (U/L) 320 09/21 09/21 09/21 0955 0934 0802 Chemistry Sodium (137 - 145 mmol/L) 138 Potassium (3.5 - 5.1 mmol/L) 3.6 Chloride (98 - 107 mmol/L) 93 L Carbon Dioxide (22 - 30 mmol/L) 37 H Anion Gap (5 - 16) 9 BUN (9 - 20 mg/dL) 18 Creatinine (0.7 - 1.2 mg/dL) 1.0 Estimated GFR (>60 ml/min) > 60 BUN/Creatinine Ratio (7 - 25 %) 18.0 Iron (49 - 181 ug/dL) 73 Cancelled TIBC (261 - 462 ug/dL) 454 Cancelled Ferritin (17.9 - 464 ng/mL) 79.1 Cancelled Total Bilirubin (0.2 - 1.3 mg/dL) 2.2 H Cancelled Direct Bilirubin (< 0.4 mg/dL) 0.4 Cancelled Albumin (3.5 - 5.0 g/dL) 3.8 Hematology CBC w Diff NO MAN DIFF REQ WBC (4.8 - 10.8 /CUMM) 6.8 RBC (4.70 - 6.10 /CUMM) 4.27 L Hgb (14.0 - 18.0 G/DL) 13.5 L Hct (42 - 52 %) 40.6 L MCV (80.0 - 94.0 FL) 95.0 H MCH (27.0 - 31.0 PG) 31.7 H MCHC (33.0 - 37.0 G/DL) 33.4 RDW (11.5 - 14.5 %) 14.2 Plt Count (130 - 400 /CUMM) 235 MPV (7.4 - 10.4 FL) 9.1 Gran % (42.2 - 75.2 %) 62.8 Lymphocytes % (20.5 - 51.1 %) 22.6 Monocytes % (1.7 - 9.3 %) 10.8 H Eosinophils % (0 - 5 %) 3.2 Basophils % (0.0 - 2.0 %) 0.6 Absolute Granulocytes (1.4 - 6.5 /CUMM) 4.3 Absolute Lymphocytes (1.2 - 3.4 /CUMM) 1.5 Absolute Monocytes (0.10 - 0.60 /CUMM) 0.7 H Absolute Eosinophils (0.0 - 0.7 /CUMM) 0.2 Absolute Basophils (0.0 - 0.2 /CUMM) 0 Immunology Anti-Mitochondrial Ab Pending Anti-Smooth Muscle Ab Pending Livr/Kid Microsome 1 Ab Pending Serology Hepatitis A IgM Ab (NONREACTIVE) NONREACTIVE Hep Bs Antigen (NONREACTIVE) NONREACTIVE Hep B Core IgM Ab Conf (NONREACTIVE) NONREACTIVE Hepatitis C Antibody (NONREACTIVE) NONREACTIVE HIV 1&2 Ab Western Blot (NONREACTIVE) NONREACTIVE Cancelled 09/21 09/21 09/20 0620 0600 0634 Chemistry Sodium (137 - 145 mmol/L) 139 Potassium (3.5 - 5.1 mmol/L) 3.5 Chloride (98 - 107 mmol/L) 94 L Carbon Dioxide (22 - 30 mmol/L) 39 H Anion Gap (5 - 16) 6 BUN (9 - 20 mg/dL) 16 Creatinine (0.7 - 1.2 mg/dL) 1.0 Estimated GFR (>60 ml/min) > 60 BUN/Creatinine Ratio (7 - 25 %) 16.0 Albumin (3.5 - 5.0 g/dL) 3.7 Coagulation PT (9.4 - 12.5 SEC) 17.7 H INR (0.90 - 1.17) 1.62 H Other Body Source Fluid WBC Cancelled Fld Total RBCs Counted Cancelled Imaging/Other Studies: 09/09/17: CT ANGIOGRAM CHEST WITHOUT AND WITH CONTRAST (CT PULMONARY ANGIOGRAM FOR PE)/CT ABDOMEN AND PELVIS WITH IV CONTRAST- 1. No evidence of central or segmental pulmonary emboli. 2. Cardiomegaly. Nonspecific subcm mediastinal nodes. 3. Moderate right hemidiaphragm elevation. There is bibasilar atelectasis, greater on the right likely due to compression. No consolidations are seen that raise suspicion for pneumonia. 4. Relative hypertrophy of the left hepatic lobe. Small abdominal ascites mostly centered around the liver and spleen. The constellation of these findings is suggestive of underlying liver cirrhosis. Clinical correlation requested. Normal GB. 5. Lymphadenopathy within the abdomen, etiology unknown (1.3 x 1.8 portacaval node & retroperitoneal 1.5 x 1.9 cm left para-aortic node). *VTE: Negative 09/09/17: XRY-PORTABLE CHEST XRAY- Suspected small to moderate right-sided pleural effusion. Cardiac silhouette enlarged. 09/09/17: CT HEAD WITHOUT CONTRAST/CT OF THE CERVICAL SPINE WITHOUT CONTRAST- 1. Technically limited study. Repeat evaluation when patient is able to hold still for better quality of images may be considered if clinically appropriate. 2. No gross CT evidence of acute intracranial hemorrhage or cervical spine fracture present. 09/09/17: ECHOCARDIOGRAM- CONCLUSIONS Normal size left ventricle. Moderate concentric left ventricular hypertrophy. Borderline left ventricular systolic function. Left ventricular ejection fraction is estimated at 50%. Mild right atrial dilatation. Mild left atrial dilatation. Mild mitral regurgitation. Mild to moderate tricuspid regurgitation. -Stanley Louis M.D. 09/10/17: US-LIMITED RUQ ABDOMEN Increased, heterogeneous echotexture throughout the liver raises possibility of underlying hepatic steatosis versus hepatocellular disease. No focal hepatic lesions. There is a small volume ascites throughout the abdomen. Nonspecific fluid within the thickened gallbladder wall, this may related to ascites. Negative sono Lopez sign. No dilated IHD/EHD with CBD 2 mm. 09/11/17: [id number] VIEW- Nonobstructive bowel gas pattern. 09/18/17: EKG- afib @ 98, nl axis, multiform PVC, QS V1-V3, borderline prolonged QT interval, ? lat ischemia. 09/18/17: XR CHEST, 2 VIEWS- Cardiomegaly with mild pulmonary venous congestion. Persistent linear platelike atelectasis in the right lung base. No consolidation. 09/20/17: *US-ABD/PELV ORGAN DOPPLER; US-COMPLETE ABDOMEN- 1. Enlarged nodular cirrhotic liver is seen with evidence of portal venous hypertension given the presence of splenomegaly and ascites. With color Doppler imaging, the main, right and left portal veins are patent with normal hepatopetal flow demonstrated. On recent CT scan, there was recanalization of the umbilical vein seen, which cannot be visualized on this exam due to technical factors. Overall hepatic Doppler assessment is limited as discussed above. 2. The splenic vein is patent but directionality of flow cannot be assessed on this exam. Enlarged 15.4 cm spleen. 3. Evaluation of the pancreas is essentially nondiagnostic due to obscuration by shadowing bowel gas. 4. Gallbladder wall thickening is seen, likely a reflection of the intra- abdominal ascites. There is a small amount of ascites around the liver and the spleen. *Sono/limited doppler-cirrhotic liver, limited views show patent HV, etc. I contacted Dr. De La O, of [facility], 09/21/17 at 7:45 p.m. to see if the small amount of ascites near the liver & spleen was tappable. *Apparently, 2.7L ascitic fluid was tapped by IR after the sono on 09/21/17, but the report was not yet dictated. 09/21/17: US-PARACENTESIS-
[2017-09-22 23:52] VITALS: BP 140/86
[2017-09-23 06:57] VITALS: BP 150/100
--- NOTE | 2017-09-23 07:04 | PN- Housestaff ---
Arnold Brown 09/23/17 0703: Subjective Follow-up For: Ascites Subjective: Overnight Episodes of Bradycardia 42 @ 0152, HR ranging 42-100. Patient has no complaint of today, denies chest pain, palpitations, shortness of breath, dizziness, headaches, blurry vision. Patient does express concern of liver biopsy, states because if it is a cardiac cause he does not want to pursue further action. Discussed with patient the need for liver biopsy to confirm cirrhosis, and the need for a possible liver transplant, patient has agreed to get liver biopsy, states will try to go [facility] as soon as possible Review of Systems Constitutional: Reports: see HPI. Objective Last 24 Hrs of Vital Signs/I&O Vital Signs Date Time Temp Pulse Resp B/P B/P Pulse O2 O2 Flow FiO2 Mean Ox Delivery Rate 09/23 0657 98.3 102 22 150/100 95 Room Air 09/23 0625 110 150/100 09/23 0625 110 150/100 09/22 2352 98.5 129 18 140/86 96 Room Air 09/22 2050 120 150/86 09/22 205 120 150/86 09/22 1457 98.4 118 22 128/94 95 Room Air Intake & Output 09/23 0800 09/23 0000 09/22 1600 Intake Total 120 120 700 Output Total 600 1600 Balance 120 -480 -900 Intake, Oral 120 120 700 Output, Urine 600 1600 Patient 289 lb Weight Physical Exam General Appearance: Alert, Oriented X3, Cooperative Cardiovascular: Normal S1, Normal S2, Irregular Rate Lungs: Clear to Auscultation, Normal Air Movement Abdomen: Normal Bowel Sounds, Anasarca, RLQ contains pressure dressing, no erythema, discharge or fluctuations appreciated Extremities: +2 Pitting edema Assessment/Plan Assessment: Mr. Mcrae is a 47-year-old gentleman past medical history of hypertension and significant alcohol abuse, cutting back two years ago, who was discharged from [facility] a week ago after being treated for new onset atrial fibrillation with RVR, and hypertensive urgency presenting again with abdominal distention. CT scan showed on previous admission showed findings suggestive of underlying liver cirrhosis. Viral hepatitis panel was negative. US abdomen showed increased ecogenecity, underlying hepatic steatosis versus hepatocellular disease. Ascites are likely due primarly to cirrhotic process, but previous echo showed EF of 50% and borderline LV systolic function. CHF or diastolic dysfunction possible, but unlikely to be primary etiology of rapid, recurrent ascites. Problem: 1. Ascites, with hx of alcohol abuse in the past. 2. Hypertensive Urgency 3. Atrial fibrillation 4. Stasis Dermatitis 5. Hypochloremia 6. Hypokalemia #Abdominal ascites: Patient has extensive history of alcoholism, ascites is most likely due to liver cirrhosis. Hepatitis panel nonreactive in 2011. Iron panel is normal.Total bilirubin elevated 2.2, with normal direct bilirubin. given 25 g of albumin. -SAAG calculated to 1.1, the patient had a high protein levels from ascitic fluid of 5.8. The exact etiology of ascites is difficult to determine at this time, due to his history and findings of cirrhosis it seemed like liver pathology would be the cause, but with high protein levels cannot rule out cardio logic cause of ascites. Patient does not have stigmata of liver failure, normal platelet count, but does have elevated INR. -Patient will be given a referral to liver clinic at [facility], for transjugular liver biopsy. Discussed with Dr. Molina and agreed to by the patient cardiology -HIV and CHARLOTTE negative -follow-up anti-smooth muscle antibody, anti-LK M antibody, AMA, A1AT -Increase Aldactone to 100mg (Monitor K+ level, K-sparing diuretic and was started on ARB 09/20/17) #Hypertensive urgency: Patient is asymptomatic, normal CMP. Systolic blood pressure has been ranging between 150-170s for the past 24 hours -Cardiology is following patient #Atrial fibrillation -Continue metoprolol 50 mg twice daily -Continue diltiazem 60 mg twice daily #Stasis dermatitis: Warm, erythematous rash present on bilateral shins. Patient has been a afebrile, and duration of rash (1 month) seems less likely to be infectious in nature. #Hypochloremia, most likely due to diuretic use #Hypokalemia: Most likely due to diuretic use #Gilbert syndrome. Patient has elevated total bilirubin at 2.2, with normal direct bilirubin 0.4 -Patient had minimal scleral icterus on presentation, has resolved. We will continue to monitor patient Diet: Heart healthy CODE STATUS: full code DVT prophylaxis: Alps Patient will be discharged home today with Eliquis 2.5 mg twice daily, amlodipine 10 mg daily, losartan 25 mg daily, spironolactone 100 mg daily. Patient instructed to follow-up with cardiology Dr. Ge, PCP Dr. Mckeon, Mundo Bazan MD in 2 weeks. Patient instructed to schedule appointment with [facility] for liver biopsy. Problem List: 1. Ascites Pain Ratin Pain Location: n/a Pain Goal: Remain pain free Pain Plan: tylenol Tomorrow's Labs & Rationales: n/a Serena GONZALEZ,Lizette 09/23/17 1003: Attending MD Review Statement Attending Statement Attending MD Statement: examined this patient, discuss w/resident/PA/LIFE INSURANCE SALESPERSON, agreed w/resident/PA/LIFE INSURANCE SALESPERSON, reviewed EMR data (avail), discussed with nursing, discussed with case mgmt, reviewed images Attending Assessment/Plan: Patient had asymptomatic bradycardia overnight. Overall he is feeling much better, his area of oozing at the paracentesis site has stopped and he is eager to go home. We have him on 60 of Lasix with 100 of Aldactone with his R, beta- anthony and calcium channel anthony. He is currently on low-dose Eliquis. He has an appointment with Dr. Mckeon on Tuesday the and have asked him to cut his blood drawn specifically his BEP with BUN and creatinine first thing Tuesday morning to make sure his lites and his BUN and creatinine are stable on the Lasix and Aldactone. He knows clearly that he needs close outpatient follow-up with Dr. Mckeon his PCP, his contract paralegal Dr. Ge and his transport technician Mundo Bazan MD.
[2017-09-23] MEDS ORDERED: ALDACTONE100 M1 PO ×2 (07:54→10:04)
[2017-09-23] MEDS ORDERED: ELIQUIS2.5 M1 PO ×2 (07:54→10:04)
[2017-09-23] MEDS ORDERED: NORVASC10 M1 PO ×2 (07:54→10:04)
[2017-09-23] MEDS ORDERED: FUROSEMIDE20 M1 PO (07:55)
[2017-09-23] MEDS ORDERED: ALDACTONE25 MG PO (08:37)
[2017-09-23] MEDS ORDERED: LOSARTAN POTASS25 M1 PO (10:04)
[2017-09-23] MEDS ORDERED: LASIX40 M1 PO (10:04)
--- NOTE | 2017-09-23 10:30 | PN- Cardiology ---
Subjective Subjective: * Breathing is comfortable. * potassium is 3.8 * atrial fibrillation with controlled heart rate. No pauses greater than 2.5 seconds. Objective Vital Signs and I&Os Vital Signs Date Time Temp Pulse Resp B/P B/P Pulse O2 O2 Flow FiO2 Mean Ox Delivery Rate 09/23 0844 67 118/76 09/23 0844 118/76 09/23 0657 98.3 102 22 150/100 95 Room Air 09/23 0625 110 150/100 09/23 0625 110 150/100 09/22 2352 98.5 129 18 140/86 96 Room Air 09/221 120 150/86 09/22 2049 120 150/86 09/22 1457 98.4 118 22 128/94 95 Room Air Intake & Output 09/23 1600 09/23 0809/23 0000 09/22 1600 09/22 0000 Intake Total 120 120 700 220 300 Output Total 600 9203 487 9171 Balance 120 -480 -900 -580 -4125 Intake, IV 50 Intake, Oral 120 120 700 220 250 Number 2 Bowel Movements Output, Other 2825 Output, Urine 600 4282 459 6269 Patient 289 lb 287 lb Weight Weight Bed scale Measurement Method Physical Exam: General: WD/obese male in NAD; alert and oriented x 3 HEENT: NC/AT, PERRL, EOMI Neck: no JVD, no carotid bruit Heart: irregularly irregular w/o murmur Lungs: clear bilaterally Abdomen: soft, distended, firm, NT, +ve bowel sounds Extremities: 2+ edema bilaterally with venous stasis changes Assessment/Plan Assessment/Plan * This patient has abdominal ascites without any clear evidence of JVD or increased RV pressures. I suspect he has a cirrhotic liver from alcohol abuse although laboratory findings are not definitely pathonomonic of this. I have a low suspicion of decompensated CHF. In review of his echo I do not think he has restrictive or constrictive disease. This patient should restart Eliquis for stroke prophylaxis. Will use a lower dose of 2.5mg BID since this patient appears to be auto-anticoagulated; likely from his liver disease. * Continue Metoprolol and Cardizem for rate control. No significant pauses are noted. Okay to stop telemetry. * Continue spironolactone. Change Lasix to 60mg PO BID due to persistent lower extremity edema. This patient will need potassium supplement. * The patient will need to hold his Eliquis for 2 days prior to a liver biopsy. * Stable from a cardiac standpoint. Patient should follow up in the office in one to two weeks. Continue telemetry? No
[2017-09-23 11:04] VITALS: BP 135/88
--- NOTE | 2017-09-23 14:41 | Event Note ---
Event Note Event Note: On CMR reconciliation patient was sent home with 60 mg of Lasix per day. Patient was called at 1440 on 09/23/2017 and updated to take 60 mg of Lasix twice daily per cardiology recommendations. Patient instructed to follow-up with cardiology and PCP in 1-2 weeks.
--- NOTE | 2017-09-23 17:52 | Discharge Summary ---
Visit Information Visit Dates Admission Date: 09/18/17 Discharge Date: 09/23/17 Hospital Course Course Attending Physician: Lizette Lyons MD Primary Care Physician: Liborio [facility] Course: Mr. Mcrae is a 47-year-old male with past medical history of hypertension, significant alcohol abuse, who was discharged a week ago after being treated for new onset atrial fibrillation with rapid ventricular response and hypertensive urgency who had presented to the emergency department with abdominal distention. ED vitals temperature 97.9, heart rate 90, respiratory rate 26, blood pressure 155/105, oxygen saturation 91% on room air ED labs: H/H 13.2/40.0, INR 2.0 Imaging 1. Abdominal ultrasound 09/20/2017nodular cirrhotic liver with evidence of portal hypertension given the presence of splenomegaly and ascites. Gallbladder wall thickening is seen, likely a reflection of intra-abdominal ascites. 2. Abdominal ultrasound Doppler on 09/20/2017right and left portal veins are patent with normal hepatopedal flow demonstrated. ED course: Patient was admitted to telemetry floor for ascites, hypertensive urgency and recently diagnosed A. fib. Eliquis was held, patient received one-time dose of IV Lasix 40 mg. Metoprolol and Cardizem were continued, cardiology consult was placed. Telemetry course 1. Ascites Patient was started on Lasix 40 mg IV twice daily. Since because of ascites was noncardiogenic in nature gastroenterology was consulted. Patient underwent diagnostic and therapeutic paracentesis on 09/21/2017, where 2.7 L of fluid were removed and patient was given 25 g of albumin. Fluid was sent for Gram stain and culture both which were negative after 2 days. SAG was calculated to be 1.1 , with high protein of 5.8, due to the results it was unclear whether abdominal ascites was due to cardiac cause or GI cause. GIs recommendation patient was also tested for HIV [place] anti-smooth muscle antibodies which were negative, with pending laboratory results for anti-LK M antibody, antimitochondrial antibody, alpha-1 antitrypsin. Iron panel was ordered which was normal. Patient was started on 50 mg of Aldactone, which was eventually increased to 100 mg. IV Lasix were eventually increased to 60 mg twice daily and patient was transitioned to p.o. Lasix 60 mg twice daily on day of discharge. GFR and electrolytes were followed both which were normal throughout hospitalization. Patient was instructed to follow-up at the [place] [facility] for transjugular liver biopsy as recommended by GI 2. Atrial fibrillation Cardiology was consulted, who suspected patient's ascites was due to cirrhotic liver secondary to alcohol abuse since they did not find evidence of JVD or increased right ventricular pressure this maintaining a low suspicion of decompensated CHF. Patient was continued on metoprolol 50 mg twice daily and Cardizem 60 mg twice daily, with instructions to monitor for significant pauses which for this patient were pauses lasting longer than 5 seconds. Eliquis was initially held by cardiology due to auto anticoagulation due to liver failure, Eliquis was restarted for stroke prophylaxis at 2.5 mg twice daily. While in hospital patient did experience some pauses which were less than 5 seconds, patient was asymptomatic 3. Hypertensive urgency Patient was started on amlodipine 10 mg, systolic blood pressure remained between 150-170s. Patient was started on losartan 25 mg. Blood pressure improved after following paracentesis, with SBP coming down to 115-135 on day of discharge 4. Stasis dermatitis Patient had erythematous rash on bilateral lower extremities which did not appear to be infectious. During hospitalization patient had +2 pitting edema, with tense skin. No weeping, lesions, discharge was appreciated. 5. Gilbert's syndrome Patient had elevated total bilirubin, with normal and normal direct bilirubin. Patient was discharged on 09/23/2017 with Eliquis 2.5 mg twice daily, amlodipine 10 mg daily, losartan 25 mg daily, Spironolactone 100 mg daily, furosemide 60 mg twice daily. With instructions to follow up on Tuesday for BP and renal function test. Patient instructed to follow with cardiology, PCP, Mundo Bazan MD for ascites and colonoscopy and [facility]. Allergies: Coded Allergies: diazepam (PER PT [employer] 09/18/17) Significant Procedures: Paracentesis with 2.7 L of fluid removal Disposition Summary Disposition Principal Diagnosis: Abdominal ascites, likely sec to livere cirrhosis with portal htn Additional Diagnosis: 1.Hypertensive urgency 2. atrial fibrillation 3. stasis dermatitis 4. hypochloremia 5. hypokalemia 6. Gilbert's syndrome Discharge Disposition: home or self care Discharge Instructions General Discharge Information Code Status: Full Code Patient's Diet: Heart Healthy Patient's Activity: As tolerated Follow-Up Instructions/Appts: Take medications as instructed. Follow PCP, cardiology, gastroenterology Check BEP with BUN/Cre on Tuesday prior to your appt with your PCP Medications at Discharge Discharge Medications: Stop taking the following medications: Apixaban (Eliquis) 5 MG TABLET ORAL TWICE DAILY Qty = 60 Continue taking these medications: Metoprolol Tartrate (Metoprolol Tartrate) 50 MG TABLET 1 Tablet ORAL TWICE DAILY Qty = 60 Comments: Last Taken:09/23/17 Time:06:25A.M Diltiazem HCl (Cardizem) 60 MG TABLET 1 Tablet ORAL TWICE DAILY Qty = 60 Comments: Last Taken:09/23/17 Time:06:25a.m Start taking the following new medications: Apixaban (Eliquis) 2.5 MG TABLET 1 Tablet ORAL TWICE DAILY Qty = 60 No Refills Instructions: . Comments: Last Taken:09/23/17 Time:8:44A.M Amlodipine Besylate (Norvasc) 10 MG TABLET 1 Tablet ORAL DAILY Qty = 30 No Refills Instructions: . Comments: Last Taken:09/23/17 Time:8:44A.M Losartan Potassium (Losartan Potassium) 25 MG TABLET 25 Milligram ORAL DAILY Qty = 30 No Refills Instructions: . Comments: Last Taken:09/23/17 Time:8:44A.M Spironolactone (Aldactone) 100 MG TABLET 1 Tablet ORAL DAILY Qty = 30 No Refills Instructions: . Comments: Last Taken:09/23/17 Time:8:44A.M The following medications have been changed: Old: Furosemide (Lasix) 40 MG TABLET 1 Tablet ORAL DAILY Qty = 30 New: Furosemide (Lasix) 40 MG TABLET 1.5 Tablet ORAL DAILY Qty = 30 Comments: Last Taken:09/23/17 Time:08:44A.M Copies To: Hortensia GONZALEZ,Mundo Alejandro; Linda GONZALEZ,Liborio Ge MD PHD,Pineda Long
== END 2017-09-23 11:04 | DRG 280 ==
LOC: ERH 13:09 → ERHI 17:14 → 1NO 17:14 → ENRESERV 18:30 → ENTRNSPT 19:49 → EDTRNSPTSTS 20:04 → 1NO 20:09 → CMPTRNSPT 20:24 → 1NO 09-19 07:24 → ENPENDDIS 09-23 10:44 → 1NO 09-23 11:04
PROVIDERS: Hospitalist; Physical Medicine & Rehabilitation Pain Medicine; Physician Assistant Medical
PROC: 0W9G3ZZ Drainage of Peritoneal Cavity, Percutaneous Approach (ICD-10-PCS; principal; 2017-09-21)
DX: K70.31 Alcoholic cirrhosis of liver with ascites (principal); E87.70 Fluid overload, unspecified; I48.91 Unspecified atrial fibrillation; Z79.01 Long term (current) use of anticoagulants; E87.6 Hypokalemia; E80.4 Gilbert syndrome; R00.1 Bradycardia, unspecified; L03.116 Cellulitis of left lower limb; L03.115 Cellulitis of right lower limb; I16.0 Hypertensive urgency; I87.2 Venous insufficiency (chronic) (peripheral); K76.6 Portal hypertension; E87.8 Other disorders of electrolyte and fluid balance, not elsewhere classified
CPT/HCPCS: 04007; 1NSP; 82103; 83516; 83520; 86376; 87075; 36415; 36592; 71046; 82436; 87040; 87070; 87086; 87389; 88305; 93005; 93010; 96374; J0360; J1940; J2001; J3490; P9047